=== PATIENT | female | born 1935 | race Caucasian/White ===

== ENCOUNTER 2024-12-18 17:01 | Inpatient (IN) | payer MEDICARE, OTHER, SELFPAY ==
[2024-12-18] VITALS (27 sets, daily range): BP systolic 91–192; BP diastolic 38–132; PULSE 2–68; BMI 23.6
[2024-12-18 14:46] LABS: Hematocrit 29.9 % (37.0-47.0); Hemoglobin 10.0 g/dL (12.0-16.0); Mean Corp Hgb Conc. 33.4 g/dL (33.0-37.0); Mean Corpuscular Volume 96.8 fL (81.0-99.0); Nucleated Red Blood Cells % 0 %; Platelet Count 224 10^3/uL (130-400); Red Cell Dist. Width 14.0 % (11.5-14.5)
[2024-12-18 15:11] LABS: ALT (SGPT) 17 U/L (0-35); AST (SGOT) 32 U/L (14-36); Albumin 4.2 g/dl (3.5-5.0); Alkaline Phosphatase 87 U/L (38-126); Blood Urea Nitrogen 41 mg/dl (7-17); Calcium 9.3 mg/dl (8.4-10.2); Carbon Dioxide 28 mmol/L (22-30); Chloride 97 mmol/L (98-107); Glucose 235 mg/dl (70-99); Potassium 5.2 mmol/L (3.5-5.1); Sodium 132 mmol/L (135-145); Total Protein 7.1 g/dl (6.3-8.2); eGFR 33.31
[2024-12-18 15:17] LABS: Troponin I 1.350 ng/ml
--- NOTE | 2024-12-18 15:54 | ED.GENMED ---
History of Present Illness
General
Chief Complaint: Chest Pain
Time Seen by Provider: 12/18/24 15:31
History of Present Illness
History of Present Illness:
see MDM
Past History
Past History
ED Past Medical History: Arrthythmia (remote hx A-fib s/p ablation), CHF, COPD, HTN, Hypercholesterolemia and Other (DM, osteoporosis)
ED Past Surgical History: Cholecystectomy and Other (PARTIAL HYSTERCTOMY CATARACTS PACEMAKER PLACEMENT 2002 GALLBLADDER REMOVED PACEMAKER GENERATOR CHANGE 01/2011 Right Hip Replacement)
Social History
Tobacco: Former smoker
Alcohol: None
Drug: None
Personal:
Living: with family
Employment: Retired
Family History
Family History: Other (non-contributory)
Phy Exam
Physical Exam
Physical Exam:
see MDM
Scores
Heart Score for Chest Pain Patients
STEMI patient?: No
History: Highly Suspicious
ECG: Significant ST-Depression
Age: >/= 65 years
Risk Factors: 1 or 2 Risk Factors
Troponin: >/= 3 x Normal Limit
Heart Score for Chest Pain Patients: 9
Heart Score Risk: 72.7 % MACE over next 6 weeks
Course
Orders/Labs/Results
Orders:
Orders
12/18/24 14:27
EKG [Electrocardiogram (*1)] Urgent
Reason for Study: Chest Pain
EKG- Treatment ONCE
12/18/24 14:34
Electrocardiogram (*1) Urgent
Reason for Study: Chest Pain
Cardiac Monitoring- Treatment ONCE
EKG- Treatment ONCE
IV Insert/Care/Rem.- Treatment PRN
O2 Therapy [RESP] Urgent
Titrate/Wean O2 to maintain O2 sat greater than (%): 90
Special Instructions: Maintain sats >/=90%
Pulse Ox/spot Check [RESP] Urgent
Quantity: 1
Special Instructions: ON ROOM AIR
12/18/24 14:39
Complete Blood Count/With Diff Urgent
Comprehensive Metabolic Panel Urgent
Troponin I Urgent
12/18/24 15:39
PTT Urgent
Prothrombin Time Urgent
12/18/24 15:40
Troponin I Urgent
12/18/24 15:41
Aspirin Chewable [Low Strength Aspirin] 243 mg PO NOW STA
Heparin 3,500 units IV NOW STA
Pharmacy Request to Place See Dose Instructions PO NOW STA
Discontinue all Active Warfarin orders?: Yes
12/18/24 15:[address] Non Medication Order As Directed
Physician Order: PTT 6 hours after initial start of Heparin infusion
12/18/24 15:45
Heparin [id number] Units/250 ml 25,000 units in 250 ml IV PER PROTOCOL
Weight to be used for heparin protocol in kilograms (kg):: 58.7
Protocol:: Cardiac Tx/Acute Coronary
PTT Goal Range to be used:: PTT 73 to 111 seconds
Order type:: Initial
INITIAL Infusion Dose (UNITS/KG/hr) & then follow protocol:: 12 units/kg/hr
Infusion Dose in UNITS/hr & then follow protocol (UNITS/hr):: 700
INFUSION RATE in mL/hr & then follow protocol (mL/hr):: 7
PTT less than or equal to 64 seconds:: Increase rate by 200 units/hr (+ 2 mL/hr)
PTT 64.1 to 72.9 seconds:: Increase rate by 100 units/hr (+ 1 mL/hr)
PTT 73 to 111 seconds:: Target Range. No change in rate.
PTT 111.1 to 130.9 seconds:: Decrease rate by 100 units/hr (- 1 mL/hr)
PTT 131 to 199.9 seconds:: HOLD for 1 hr. Then decrease rate by 200 units/hr (- 2 mL/hr)
PTT greater than or equal to 200 seconds:: HOLD for 2 hrs & Notify Provider. Then decrease by 200 units/hr (-
2 mL/hr)
Lab follow-up:: Each change, PTT q6h until 2 consecutive are therapeutic. Then PTT
daily.
12/18/24 15:49
CARDIOLOGY CONSULT Routine
Consulting Provider: Paula Dinero
Was physician already notified: Yes
12/18/24 16:[address] See Dose Instructions IV DIRECTED
Abnormal Lab Results
12/18/24
14:39
RBC 3.09 L 10^6/uL
(4.20-5.40)
Hgb 10.0 L g/dL
(12.0-16.0)
Hct 29.9 L %
(37.0-47.0)
MCH 32.4 H pg
(27.0-31.0)
Absolute Lymphs (auto) 0.8 L 10^3/uL
(1.2-3.4)
Neutrophils % 76.0 H %
(42.2-75.2)
Lymphocytes % 10.9 L %
(20.5-51.1)
Sodium 132 L mmol/L
(135-145)
Potassium 5.2 H mmol/L
(3.5-5.1)
Chloride 97 L mmol/L
(98-107)
BUN 41 H mg/dl
(7-17)
Creatinine 1.5 H mg/dL
(0.6-1.0)
Glucose 235 H mg/dl
(70-99)
Troponin I 1.350 H* ng/ml
12/18/24 14:39
12/18/24 14:39
Vital Signs
Initial and Last Documented VS:
Initial Vital Signs
Temp Pulse Resp BP Pulse Ox
98.4 F 60 18 133/56 98
12/18/24 14:29 12/18/24 14:29 12/18/24 14:29 12/18/24 14:29 12/18/24 14:29
Last Documented Vital Signs
Temp Pulse Resp BP Pulse Ox
98.4 F 60 18 133/56 98
12/18/24 14:29 12/18/24 14:29 12/18/24 14:29 12/18/24 14:29 12/18/24 14:29
MDM/Problems Addressed
Differential Diagnosis Includes:
Note:
CHIEF COMPLAINT(S)
Chest pain.
HISTORY OF PRESENT ILLNESS
The patient is an 89-year-old female with a history of paroxysmal atrial fibrillation and a pacemaker, who presented with chest pain. The symptoms started this morning at approximately 7:00 AM, waking her from sleep. She described the pain as
located between her shoulder blades with tightness across the stomach and heaviness on the chest. The pain persisted for about an hour and a half, resolving around 8:30 AM after she took her medications. The patient has experienced no recurrence of
the pain since then. It was communicated that her heart markers were elevated, suggesting stress or injury to the heart muscle, leading to the suspicion of a myocardial infarction (heart attack). The treating physician suspects a potential small
blockage in one of the hearts blood vessels that might have dissolved or remain as a tight narrowing.
ADDITIONAL HISTORY OBTAINED FROM SOURCES OTHER THAN THE PATIENT
The patients spouse confirmed that while assistance from EMS was suggested, they did not summon an ambulance due to distance considerations.
CHRONIC MEDICAL CONDITIONS SIGNIFICANTLY AFFECTING CARE
- Atrial fibrillation, noted to have occurred during a previous hospital admission.
- History of a pacemaker.
PLAN
The patient will be admitted for overnight observation due to the elevated heart markers, suggesting a myocardial infarction. She will be started on heparin (a blood thinner) to prevent further clot formation. The patient will also be given
additional aspirin. Ongoing monitoring for chest pain is crucial, and she is instructed to report any return of symptoms immediately. The cardiology team will be consulted for further management and potential cardiac catheterization. Communication
will also be established with her cardiologists, Dr. Avery and Dr. Rivas, to coordinate care. The importance of her pacemaker function in regulating heart rhythm and minimizing stroke risk related to atrial fibrillation was discussed.
DIFFERENTIAL DIAGNOSIS
The Differential Diagnosis includes, in no particular order and is not limited to:
1. Myocardial infarction
2. Unstable angina
3. Pulmonary embolism
4. Aortic dissection
5. Acute pericarditis
6. Gastroesophageal reflux disease (GERD)
7. Esophageal spasm
8. Costochondritis
9. Panic attack
10. Pneumonia
PHYSICAL EXAM
General: Alert, no acute distress.. Sitting in bed comfortably
Skin: Warm, dry.
Head: Normocephalic, atraumatic
Neck: Appears supple, trachea midline.
Eyes, Ears, Nose, Mouth, and Throat: Oral mucosa moist.
Cardiovascular: No signs of cyanosis. Regular rate and rhythm
Respiratory: Respirations are non-labored.
Abdomen: Non-distended
Musculoskeletal: No deformities. No leg edema
Neurological: No focal neurological deficit observed.
Psychiatric: Cooperative, appropriate mood and affect.
EKG
My independent EKG interpretation is:
- Rhythm: Normal sinus rhythm
- Bouse: Normal axis
- Notable Abnormalities: ST depression laterally
- No evidence of: STEMI
Disposition:
SUMMARY OF ENCOUNTER
The patient, an 89-year-old female with a history of atrial fibrillation and a pacemaker, presented to the emergency department with chest pain occurring early in the morning. Initial blood work indicated elevated cardiac markers suggesting a
potential myocardial infarction (heart attack), likely a qie-HI-rhfuesiwa myocardial infarction (NSTEMI). Management included initiating a heparin drip to prevent further clot formation and administration of aspirin as part of protocol for suspected
acute coronary syndrome. Due to these findings and risks, the patient is being managed as an acute coronary syndrome case.
DISPOSITION
Admit
ASSESSMENT
Suspected yup-JE-pilefefob myocardial infarction (NSTEMI) due to elevated troponin levels and clinical presentation.
EMERGENCY TREATMENTS ADMINISTERED
Aspirin and heparin drip were administered in the emergency department.
MANAGEMENT OF THE PATIENTS CARE WAS DISCUSSED WITH
The cardiology team was consulted for further management, and the patient will be admitted under the hospitalist service with ongoing heparin infusion.
PLAN
Admit the patient for inpatient monitoring and management. Begin heparin infusion to prevent further clot formation and continue aspirin therapy. Monitor cardiac markers and symptoms closely. The patient is instructed to report any return of chest
pain immediately. Further discussions with cardiologists for potential interventions will be conducted.
INDEPENDENT REVIEW OF LABS AND INTERPRETATION OF TESTS
My independent review of cardiac markers indicates elevated troponin levels, suggestive of myocardial stress or injury.
MEDICATION RECONCILIATION
Administered medications include aspirin and a heparin drip.
MEDICAL DECISION MAKING
-Complexity of Data Reviewed: Chronic conditions affecting care: Atrial fibrillation, history of pacemaker. Differential Diagnosis: Myocardial infarction, unstable angina, pulmonary embolism, aortic dissection, acute pericarditis, gastroesophageal
reflux disease, esophageal spasm, costochondritis, panic attack, pneumonia.
-Data:
Category 1: My independent EKG interpretation indicated normal sinus rhythm and ST depression laterally, with no evidence of STEMI.
Category 3: Management discussion took place with the cardiology team regarding the treatment plan and admission under the hospitalist service.
-Risk: Prescription medication was prescribed and administered, including aspirin and heparin infusion. Escalation of care with inpatient admission was made due to potential for myocardial infarction.
DIAGNOSIS
Non-ST elevation myocardial infarction (NSTEMI) (ICD-10: I21.4)
*Pulse Oximetry
SaO2: 98
Oxygen Mode of Delivery: Room air
Patient hypoxic: no
*Critical Care Note
Total Time (30-74mins, 75-104mins- exclusive of procedures): 33 min
comment:
The high probability of a clinically significant, sudden or life threatening deterioration of the cardiovascular system(s) required my full and direct attention, intervention and personal management. The aggregate critical care time was 33 minutes.
This time is in addition to time spent performing reported procedures but includes the following:
[x] Data Review and interpretation
[x] Patient assessment and monitoring of vital signs
[x] Documentation
[x] Medication orders and management
ED Attending Note
-
Portions of this chart may have been created with voice recognition software.� Occasional wrong word or��sound alike� substitutions may have occurred due to the inherent limitations of voice recognition software.
Discharge Plan
Departure
Patient Disposition: Admit
Date of Disposition: 12/18/24
Time of Disposition: 15:58
Admit to: IVU
Presentation/result/management discussed w/ accepting MD/DO: Hospitalist
Discharge Problem:
Acute non-ST elevation myocardial infarction (NSTEMI)
Prescriptions:
No Action
glimepiride 2 MG tablet
4 mg PO TID
spironolactone 50 MG tablet
25 mg PO BID
omeprazole magnesium [Prilosec OTC] 20 MG tablet,delayed release (DR/EC)
20 mg PO DAILY
diltiazem HCl [Cartia XT] 240 MG capsule,extended release 24hr
240 mg PO BID
atorvastatin 40 MG tablet
40 mg PO MOWEFR
tolterodine 2 MG tablet
2 mg PO BID
triamcinolone acetonide [Nasacort] 10.8 ML aerosol,spray
1 spray NS PRN PRN (Reason: allergies)
aspirin [Rayo Chewable Aspirin] 81 MG tablet,chewable
81 mg PO DAILY
light mineral oil-mineral oil [Soothe XP] 15 ML drops
1 drp OP DAILY
fluticasone propion-salmeterol [Advair HFA] 1 PUFF HFA aerosol inhaler
1 puff inhalation PRN PRN (Reason: sob)
dulaglutide [Trulicity] 0.75 MG/0.5 ML pen injector
0.75 mg SQ WEEKLY
latanoprost (PF) 7.5 ML drops
1 drp OP HS
Referrals:
Chelsi Schroeder MD [Family Provider]
Interventions
Interventions:
*Risk Screen - Suicide Last Done: 12/18/24 14:29
Discharge Date and Time
Print Language: POLISH
--- NOTE | 2024-12-18 16:03 | CON.CAR ---
Consultation
Consultation Request
Date/Time Consultation Requested: 12/18/2024 4 PM
Date/Time Consultation Performed: 12/18/2024 4:30 PM
Requesting Provider: Dr. Ponce Virk
Performing Provider: Dr. Paula Dinero
Reason for Consultation: Chest pain elevated troponin
Medical History
-
Chief Complaint: Chest pain
History of Present Illness:
She is here for assessment of chest discomfort. She is a patient of [facility] cardiology. She is accompanied by her daughter. She has known paroxysmal atrial fibrillation and pacemaker with last generator change at our institution in 2020. She and her
daughter tell me that she was admitted to [place] from Thursday to Thursday of this past week. They think it was for atrial fibrillation. She is not on oral anticoagulation. They think there was 'water in her lungs '. They do not remember what
testing was done. Records are not available. She had been feeling poorly.
Early this morning around 7 AM she had symptoms of chest discomfort with radiation across her stomach and shoulder blades waking her up from sleep. The pain persisted about 1-1/2 hours. She has not had recurrence. She tells me that she feels that
she has had a decline in activity level over the past few weeks. She has some dyspnea on exertion with usual activity.
First troponin is elevated at 1.35. EKGs with ventricular pacing and ST depression in the anterolateral and inferior leads a bit more pronounced than prior. No chest x-ray is currently available for review.
Aspirin and heparin were started in the emergency department. Patient was felt to have acute coronary syndrome. Non-ST elevation AK likely
She has multiple cardiovascular risk factors including peripheral vascular disease, diabetes and hyperlipidemia.
She has history of paroxysmal atrial fibrillation for which she remains on. She underwent pulmonary vein isolation in 2011 (Dr. Cassidy)
She has a [employer] pacemaker in place with last change of generator 2020
She has history of peripheral vascular disease that is being followed and possible carotid disease. She tells me although she has artery disease of the legs they are just going to watch it.
She has hyperlipidemia on treatment.
She is diabetic.
She has chronic kidney disease with today's creatinine 1.5 previously noted at 1.3. She has history of anemia.
Past Medical History
Past Medical History: Arrhythmias (Atrial fibrillation with pulmonary vein isolation in 2011. [employer] permanent pacemaker generator change 2020.), COPD, HTN, NIDDM, Renal Failure (Chronic kidney disease) and Other (Peripheral vascular disease
possible carotid disease)
Past Surgical History: Cardiac (Pacemaker last generator change 2020 [employer]), Cholecystectomy, Gynecological, Orthopedic (Right hip replacement) and Other (Cataract surgery)
Social History
Tobacco: Former Smoker
Personal:
Living: With Family
Family History
Family History: CAD (Father)
Allergies / Home Medications
Allergy/AdvReac Type Severity Reaction Status Date / Time
dexamethasone (From Maxitrol) Allergy Unknown Verified 02/13/21 09:11
neomycin (From Maxitrol) Allergy Unknown Verified 02/13/21 09:11
polymyxin B (From Maxitrol) Allergy Unknown Verified 02/13/21 09:11
sulfamethoxazole (From Allergy Unknown Verified 02/13/21 09:11
Bactrim)
trimethoprim (From Bactrim) Allergy Unknown Verified 02/13/21 09:11
�Medication �Instructions �Recorded �Confirmed �Type
glimepiride 2 mg tablet 4 mg PO TID 02/18/12 02/13/21 History
omeprazole magnesium 20 mg 20 mg PO DAILY 02/18/12 02/13/21 History
tablet,delayed release (Prilosec
OTC)
spironolactone 50 mg tablet 25 mg PO BID 02/18/12 02/13/21 History
diltiazem HCl 240 mg 240 mg PO BID 02/19/12 02/13/21 History
capsule,extended release 24 hr
(Cartia XT)
aspirin 81 mg chewable tablet 81 mg PO DAILY 02/13/21 02/13/21 History
(Rayo Chewable Low Dose Aspirin)
atorvastatin 40 mg tablet 40 mg PO MOWEFR 02/13/21 02/13/21 History
dulaglutide 0.75 mg/0.5 mL 0.75 mg SQ WEEKLY 02/13/21 02/13/21 History
subcutaneous pen injector
(Trulicity)
fluticasone propionate 115 1 puff inhalation PRN PRN sob 02/13/21 02/13/21 History
mcg-salmeterol 21 mcg/actuation
HFA inhaler (Advair HFA)
latanoprost (PF) 0.005 % eye drops 1 drp OP HS 02/13/21 02/13/21 History
light mineral oil 1 %-mineral oil 1 drp OP DAILY 02/13/21 02/13/21 History
4.5 % eye drops (Soothe XP)
tolterodine 2 mg tablet 2 mg PO BID 02/13/21 02/13/21 History
triamcinolone acetonide 55 mcg 1 spray NS PRN PRN allergies 02/13/21 02/13/21 History
nasal spray aerosol (Nasacort)
Review of Systems
-
History Source: Patient
All other systems: Negative unless noted
Cardiac: Chest Pain
Physical Exam
Vital Signs
Temp Pulse Resp BP Pulse Ox
98.4 F 60 18 133/56 98
12/18/24 14:29 12/18/24 14:29 12/18/24 14:29 12/18/24 14:29 12/18/24 15:55
Lab Results
12/18/24 14:39
12/18/24 14:39
Troponin I 1.350 ng/ml H* 12/18/24 14:39
General: Well developed, well nourished in NAD.
Neck: Carotid bruit right greater than left
Heart: RRR, no murmurs, 2/6 basal systolic murmur
Lungs: Crackles at the bases
Extremities: No clubbing, cyanosis trace to +1 edema bilaterally.
Neuro: Grossly nonfocal, awake, alert and oriented x3.
Impression / Plan
-
[employer]: Dr. Avery
Impression:
Chest discomfort Non-Q wave myocardial infarction first troponin 1.35
Atrial fibrillation paroxysmal
Status post PVI 2011 (Dr. Cassidy)
Heart failure unknown ejection fraction
Permanent pacemaker [employer] last generator change 2020 (Dr. Hodges)
Hyperlipidemia
Diabetes mellitus
Peripheral vascular
Renal insufficiency
Plan:
She was admitted to [place] from Thursday to Thursday of this past week. She thinks it was for atrial fibrillation (she was not started on oral anticoagulation). She is on amiodarone. She believes that she had fluid in her lungs also. We do not
have records for review.
Given chest pain and significant cardiovascular risk factors including peripheral vascular disease in the setting of abnormal troponin likely non-Q wave myocardial infarction, unclear timing given her troponins are already decreasing. Patient
currently is chest pain-free. Plan at this time is to have patient admitted to the interventional care unit.
Non-Q wave myocardial infarction, unclear timing
Obtain records from [facility] she was discharged 2 days ago and they are unsure what happened at that time.
Start heparin
Start aspirin
Trend troponins with serial EKGs
Continue statin
Check lipids
Follow telemetry
Likely cardiac catheterization Thursday unless recurrent chest pain
Hold Trulicity
History of paroxysmal atrial fibrillation
She is currently on amiodarone, unclear how long and whether this was started at [place] last week. She tells me she had A-fib but is not on anticoagulation. Currently sinus rhythm. Watch telemetry.
Obtain records.
PVI 2011
Follow telemetry
Heart failure with unknown ejection fraction
She tells me she had fluid in her lungs at [place]
Exam holding a bit of fluid, mild
proBNP added on
Renal insufficiency noted
Consider IV diuretic in a.m. Oxygenation is stable.
[employer] permanent pacemaker generator change 2020
Interrogate/follow.
Hyperlipidemia
Continue statin await lipids
Diabetes mellitus
Managed by primary service
Peripheral vascular disease details unknown
I reviewed all available records. Will obtain other records. Reviewed discharge med list from [place]. Had a long discussion with patient's daughter. Patient's daughter asked that we call Twila the patient's granddaughter who lives with her
to discuss treatment plans and any further questions.
Data Reviewed
-
EKG: Tracing Personally Visualized and interpreted
Medical Tests (Nuc Med, Echo etc): Report Reviewed by me
Labs: Labs Reviewed by me
Old Records: Requested and Reviewed
[2024-12-18] MEDS: LOW STRENGTH ASPIRIN 243 MG PO (16:19)
[2024-12-18 16:23] LABS: INR 1.20; PT 15.5 Sec (11.4-14.6)
[2024-12-18 16:24] LABS: APTT 27.7 Sec (23.4-35.0)
[2024-12-18] MEDS: HEPARIN 3500 UNITS IV (16:28)
[2024-12-18] MEDS: HEPARIN 25000 UNITS/250 ML IV (16:35)
[2024-12-18 16:43] LABS: Troponin I 1.250 ng/ml
--- NOTE | 2024-12-18 16:49 | HPS.HSE ---
Addendum entered and electronically signed by Damaso Rankin MD 12/21/24 09:04:
CORRECTION: typo error
Paroxysmal A-fib status post ablation status post Pacemaker- Not Watchman.
Patient does not have Watchman device.
Original Note:
Family Physician
-
Family Physician: Chelsi Schroeder
Chief Complaint
-
Chest pain
History of Present Illness
Patient is a pleasant 89 years old with a history of atrial fibrillation status post ablation, pacemaker, hypertension, COPD, congestive heart failure, hyperlipidemia, diabetes mellitus, who came to the ER with chest pain which started at 7 AM today
morning, started between shoulder plates then had epigastric pain and then central chest pain associated with nausea but no vomiting.
Patient also was having headaches which are currently improved.
Denies any fever or chills, no coughing, no diarrhea but has constipation.
In the ER noted to have significant elevated troponin with EKG showing ST depression lateral leads, patient started on heparin drip and will be admitted to the IVU.
Medical History
Past Medical History
Past Medical History: Reports Other
Additional Past Medical History:
Arrthythmia (remote hx A-fib s/p ablation), CHF, COPD, HTN, Hypercholesterolemia and Other (DM, osteoporosis)
Past Surgical History: Reports Other
Additional Past Surgical History:
Cholecystectomy and Other (PARTIAL HYSTERCTOMY CATARACTS PACEMAKER PLACEMENT 2002 GALLBLADDER REMOVED PACEMAKER GENERATOR CHANGE 01/2011 Right Hip Replacement)
Social History
Tobacco: Former Smoker
Alcohol: None
Drug: None
Personal:
Living: With Family
Employment: Retired
Family History
Family History: Not pertinent
Allergies / Home Medications
Allergies reflects when Allergies were last updated in [facility].
Home Medications with original date entered in [facility]
Allergy/Medication List:
Allergies
Allergy/AdvReac Type Severity Reaction Status Date / Time
dexamethasone (From Maxitrol) Allergy Unknown Verified 02/13/21 09:11
neomycin (From Maxitrol) Allergy Unknown Verified 02/13/21 09:11
polymyxin B (From Maxitrol) Allergy Unknown Verified 02/13/21 09:11
sulfamethoxazole (From Allergy Unknown Verified 02/13/21 09:11
Bactrim)
trimethoprim (From Bactrim) Allergy Unknown Verified 02/13/21 09:11
Home Medications
glimepiride 2 mg tablet 4 mg PO TID 02/18/12
omeprazole magnesium 20 mg tablet,delayed release (Prilosec OTC) 20 mg PO DAILY 02/18/12
spironolactone 50 mg tablet 25 mg PO BID 02/18/12
diltiazem HCl 240 mg capsule,extended release 24 hr (Cartia XT) 240 mg PO BID 02/19/12
aspirin 81 mg chewable tablet (Official Limited Virtual Chewable Low Dose Aspirin) 81 mg PO DAILY 02/13/21
atorvastatin 40 mg tablet 40 mg PO MOWEFR 02/13/21
dulaglutide 0.75 mg/0.5 mL subcutaneous pen injector (Trulicity) 0.75 mg SQ WEEKLY 02/13/21
fluticasone propionate 115 mcg-salmeterol 21 mcg/actuation HFA inhaler (Advair HFA) 1 puff inhalation PRN PRN sob 02/13/21
latanoprost (PF) 0.005 % eye drops 1 drp OP HS 02/13/21
light mineral oil 1 %-mineral oil 4.5 % eye drops (Soothe XP) 1 drp OP DAILY 02/13/21
tolterodine 2 mg tablet 2 mg PO BID 02/13/21
triamcinolone acetonide 55 mcg nasal spray aerosol (Nasacort) 1 spray NS PRN PRN allergies 02/13/21
Review of Systems
-
A 12 point ROS was completed and negative except as noted: Yes
Constitutional: Denies Fever, Weight Gain, Weight Loss, Fatigue or Sleep Disturbance
EENT: Denies Tearing, Sore Throat, Mouth Pain, Mouth Swelling or Runny Nose
Respiratory: Denies Cough, Hemoptysis or Trouble Breathing
Cardiac: Reports Chest Pain; Denies Diaphoresis, Palpitations or Syncope
Abdomen/GI: Reports Nausea and Constipated; Denies Abdominal Pain, Vomiting, Diarrhea, Bloody Stools or Black Stools
: Denies Dysuria, Frequency, Flank Pain, Incontinence, Difficulty Voiding, Urgency, Bleeding or Dark Urine
Musculoskeletal: Denies Joint Pain, Joint Swelling, Muscle Pain, Muscle Stiffness or Edema
Skin: Denies Itching or Rash
Neurological: Reports Headache; Denies Dizzy, Weakness or Numbness
Endocrine: Denies Polyuria, Polydipsia or Temp Intolerance
Hematologic/Lymphatic: Denies Bleeding, Swollen Glands or Bruising
Psych: Reports Calm; Denies Depression, Anxiety or Panic Disorder
Physical Exam
Vital Signs
Vital Signs
Temp Pulse Resp BP Pulse Ox
98.4 F 60 18 133/56 98
12/18/24 14:29 12/18/24 14:29 12/18/24 14:29 12/18/24 14:29 12/18/24 15:55
Physical Exam
General: Well Developed, Well Nourished, No Apparent Distress, Comfortable and Good Appetite; No Pain, Chills or Sweats
HEENT: NormoCephalic, Moist mucous membranes, Atraumatic, Good Dentition, PERRLA, Nose Appears Normal and Ears Appear Normal
Respiratory: Clear
Cardiac: S1/S2 and Regular Rhythm
Breast: Deferred by me
GI: Soft, Non Tender, Non Distended and Normal Bowel Sounds
Genito-urinary: Deferred by me
Musculoskeletal: No Clubbing, No Cyanosis and No Edema
Skin: Warm; No Rash, Jaundice, Ulcers, Lesions or Decubitus Ulcers
Neuro: Awake, Alert, Oriented, AO x 3, No Motor Deficits, Nonfocal/grossly intact and Cranial Nerves Intact
Hematologic/Lymphatic: No Lymphadenopathy
Psych: Calm
Laboratory Results
-
12/18/24 14:39
12/18/24 14:39
Laboratory Results
PT 15.5 Sec (11.4-14.6) H 12/18/24 15:40
INR 1.20 12/18/24 15:40
APTT 27.7 Sec (23.4-35.0) 12/18/24 15:40
Total Bilirubin 0.9 mg/dl (0.2-1.3) 12/18/24 14:39
AST 32 U/L (14-36) 12/18/24 14:39
ALT 17 U/L (0-35) 12/18/24 14:39
Alkaline Phosphatase 87 U/L (38-126) 12/18/24 14:39
Troponin I 1.250 ng/ml H* 12/18/24 15:40
Data Reviewed
-
Diagnostic Radiology: Report Reviewed by me
CT Scan: Report Reviewed by me
Medical Tests (Nuc Med, Echo, EKG etc): Report Reviewed by me
Lab Data: Labs Reviewed by me
Old Records: Reviewed
Impression/Plan
-
Impression:
Patient is a pleasant 89 years old with a history of atrial fibrillation status post ablation, pacemaker, hypertension, COPD, congestive heart failure, hyperlipidemia, diabetes mellitus, who came to the ER with chest pain.
In the ER noted to have significant elevated troponin with EKG showing ST depression lateral leads, patient started on heparin drip and will be admitted to the IVU, cardiology consulted in the ER.
Assessment/plan:
NSTEMI
Patient presented to the ER with chest pain. Currently chest pain-free
Troponin came back at 1.350 ----> 1.250
EKG done in the ER shows ST depression lateral leads
Aspirin/statin/Plavix
Trend troponin
Cardiology consulted.
Check echocardiogram.
Keep n.p.o. after midnight for potential cardiac cath.
Chronic congestive heart failure (unknown type, no echo available)
History of congestive heart failure, no sign of acute exacerbation.
Holding home diuretic for now as patient may undergo cardiac cath
Cardiology consulted.
Will check echo.
Paroxysmal A-fib status post ablation status post Watchman
Currently in sinus rhythm.
Rate controlled.
Continue metoprolol.
Patient not on anticoagulation at home
Normocytic anemia
Unclear baseline.
Continue to monitor hemoglobin while on heparin
Right lower extremity calf tenderness
History of DVT.
Ultrasound lower extremity pending
Hyperkalemia
Recently spironolactone discontinued.
Continue to monitor
Acute renal failure versus CKD
Creatinine 1.3.
Unknown baseline but possible CKD
Creatinine from 2011 1.3
Mild hyponatremia
Continue to monitor
History of diabetes mellitus
Continue home medication
Insulin sliding scale
Diabetic diet
Hemoglobin A1c pending
History of hypertension
Continue home meds (metoprolol)
History of hyperlipidemia
Continue statin
History of COPD
Patient was former smoker.
Continue home inhalers
No sign of acute exacerbation
CODE STATUS: Full code
DVT prophylaxis: Heparin drip
Diet: Diabetic/cardiac, n.p.o. after midnight
Family communication: Discussed with family at bedside
Disposition: Continue heparin drip, n.p.o. after midnight for possible cardiac cath.
Total time spent on today�s encounter was 75 minutes which included time spent in counseling the patient/family regarding diagnosis and treatment plan as listed above, goals of care, and symptom management. Case was discussed with nursing staff,
specialists, and care coordinators/case management. All labs and imaging personally reviewed by me. Remainder the time spent in detailed review of previous records, lab data, imaging, and other medical provider documentation.
--- NOTE | 2024-12-18 17:02 | CM ---
CM reviewed chart and met with pt and family bedside in ED. Pt lives in 1 story in [address] suite attached to her granddaughter's home. 2 EDMUND.
Independent in ADLs and personal care, uses cane for ambulation, also has walker.
Confirms prescription coverage.
hx [facility] in past, no hx SNF
PCP: Chelsi Schroeder
Pharmacy: [facility] in [place]
CM will continue to follow for any discharge planning needs.
--- NOTE | 2024-12-18 19:55 | PTCARENOTE ---
Patient received at approximately 1935 from ED. Ambulated from stretcher to bathroom x1 RW. Heparin gtt infusing as ordered. Patient voided appropriately in the bathroom. Admission completed. See Worklist. AOx3. Apical regular. Radial and pedal
pulses palpable. RLE edema > LLE edema (+1 and trace respectively). Patient coughing up clear mucous. Lungs with scattered fine crackles. Pain free at times of admission. Patient oriented to room and unit. Call carreno within reach. Care ongoing.
[2024-12-18] MEDS: TYLENOL 650 MG PO (20:23)
--- NOTE | 2024-12-18 20:43 | W.PN.UPDATE ---
Update Note
Progress Note Update
-Patient seen for 8 out of 10 chest pain, RN placed patient on 2L NC
-On evaluation, patient very dyspneic, O2 sat 91% on 2L NC, OX3, HR reg, lungs diminished t/o, +BS x 4.
-Ordered stat portable CXR. Lasix 20 mg IV x 1 now. Repeat dose of 20 mg IV requested by Cardiology for total dose of Lasix 40 mg IV.
-EGK, preliminary ready NSR ST &T wave abnormality, consider inferolateral ischemia.
-Started on Nitro gtt, for chest pain, titrated as needed.
-TT to harvest contractor [employer], Dr. Paula Dinero, updated on events, sent EKG for review
-Patient's O2 sats continued to drop 87% on 6L w/non rebreather, patient w/decreased mentation, rapid response called. Appreciate assistance from CV Natan ALBRECHT.
-Patient started on BiPap, ordered Duoneb, SL nitro x 1 stat dose and transferred to ICU/Assurance Assistant consulted.
-Called and spoke to patient's granddaughter, Jackelin, to update on events and transfer of patient to higher level of care.
[2024-12-18] MEDS: NITROGLYCERIN PREMIX 250 IV (20:59)
[2024-12-18] MEDS: LASIX 20 MG IV ×2 (21:16→21:31)
[2024-12-18] MEDS: DETROL PO (21:28)
[2024-12-18] MEDS: NITROSTAT (SUBLINGUAL) 0.4 MG SL (21:40)
[2024-12-18 21:41] LABS: Glucose - Point of Care 328 mg/dl (70-99)
[2024-12-18] MEDS: DUONEB INH (21:43)
--- NOTE | 2024-12-18 21:47 | RESPNOTE ---
rapid response was called, pt placed on bipap 02/12 as order.
abg and 1 time duoneb tx was given as order.
[2024-12-18] MEDS: DUONEB 3 ML INH (22:16)
--- NOTE | 2024-12-18 22:30 | PTCARENOTE ---
At approximately 2004 the patient reported epigastric pain, said it was mild and rated it as a 2 out 10. She also reported that it radiated to between her shoulder blades. An ECG was completed. Eddie Choi was notified. The patient was
initially on room air with SaO2 97-99%. Following reports of chest pain her SaO2 decreased to 88-90%. 2L NC was applied and uptitrated to 6L with SaO2 ranging from 90-92%. The epigastric pain continued to increase up to a 8 out of 10 and radiating
from epigastric region to her sternum, a second ECG was completed. The patient became restless and was attempting to exit the bed. A nitroglycerin gtt was ordered and hung, see MAR and worklist. 20mg Lasix was ordered and given at 2115 and 2130, see
JUL. The patient became more tachypneic with labored breathing and eventually became more lethargic. Eddie Choi called CT surgery DAVE to also assess the patient. Per TRENA Elkins, nitro uptitrated due to continued chest pain and hypertension.
One does of SL Nitro given, see MAR. Portable CXR completed.
A rapid response was called per CT-surgery DAVE Elkins at 2137. The patient was placed on Bipap by RT. ICU nurses to bedside. It was decided that the patient would be upgraded to a higher level of care. Bedside report was given to receiving RN,
Marcos, and the patient was transported to the ICU. Eddie Choi to speak with family regarding change in level of care.
[2024-12-18 22:34] LABS: B.E. -4.0 mmol/L; HCO3 22.6 mmol/L (21-28); O2 Saturation % 98.7 % (94-98); PCO2 47 mmHg (32-35); PO2 96 mmHg (83-108)
[2024-12-18 22:35] LABS: Hematocrit 29.4 % (37.0-47.0); Hemoglobin 9.6 g/dL (12.0-16.0); Mean Corp Hgb Conc. 32.7 g/dL (33.0-37.0); Mean Corpuscular Volume 96.1 fL (81.0-99.0); Platelet Count 217 10^3/uL (130-400); Red Cell Dist. Width 14.0 % (11.5-14.5)
[2024-12-18 23:00] LABS: Troponin I 1.510 ng/ml
[2024-12-18 23:04] LABS: APTT 159.3 Sec (23.4-35.0); Blood Urea Nitrogen 35 mg/dl (7-17); Calcium 8.9 mg/dl (8.4-10.2); Carbon Dioxide 20 mmol/L (22-30); Chloride 101 mmol/L (98-107); Estimated Creatinine Clearance 20 ml/min; Glucose 300 mg/dl (70-99); Potassium 4.6 mmol/L (3.5-5.1); Sodium 131 mmol/L (135-145); eGFR 33.31
[2024-12-18] MEDS: XALATAN OPHTHALMIC SOLUTION 1 DROP BOTH EYES (23:42)
[2024-12-18] MEDS: NOVOLOG FLEXPEN 5 UNITS SC (23:43)
[2024-12-18 23:45] LABS: APTT 111.6 Sec (23.4-35.0)
[2024-12-19] VITALS (39 sets, daily range): BP systolic 83–135; BP diastolic 33–86; PULSE 2–66; BMI 23.5
--- NOTE | 2024-12-19 00:33 | PTCARENOTE ---
transferred pt from IVU to the unit after responding to rapid, pt Ox3 drowsy and lethargic, able to make needs known, PERRLA 3, denies chest pain, A paced on the monitor, weak radials, Doppler pedals, trace GA, lungs coarse, fine crackles and
expiratory wheeze throughout, pt received neb treatment, BIPAP 12/8 10L SpO2 100%, Bsx4 hyperactive round soft non tender, PW pt due to void, Bladder scanned for 35ml, pt has not voided after receiving lasix, pt states she ambulated to the bathroom
and urinated before rapid was called, dry skin sloughing on sacrum, 18G RAC, 20G LAC, 24G L wrist, Hep gtt per worklist, Nitro weaned off @ 2300 due to pt becoming hypotensive pt still denies chest pain, labs sent, CHG bath, BG 300, 5 units given
per order, call carreno within reach, otherwise refer to documentation.
[2024-12-19 01:02] LABS: Glucose - Point of Care 214 mg/dl (70-99)
[2024-12-19 01:56] LABS: Glucose - Point of Care 149 mg/dl (70-99)
--- NOTE | 2024-12-19 03:34 | PTCARENOTE ---
systems reviewed, BG 214 after 5 units, EGG PROCESSOR notified [facility]CGP ordered, awaiting approval from pharmacy, new BG after 45min 149, EGG PROCESSOR notified and CCGP cancelled, O2 weaned down, Hep gtt per worklist, otherwise refer to documentation
[2024-12-19 05:26] LABS: APTT 72.0 Sec (23.4-35.0)
[2024-12-19 05:43] LABS: HDL Cholesterol 49 mg/dl; LDL Cholesterol, Calculated 61 mg/dl; Magnesium 2.4 mg/dl (1.6-2.3); Very Low Density Lipoprotein 11 mg/dl (0-30)
[2024-12-19 05:43] LABS: B.E. -0.1 mmol/L; HCO3 23.8 mmol/L (21-28); O2 Saturation % 97.4 % (94-98); PCO2 35 mmHg (32-35); PO2 72 mmHg (83-108)
[2024-12-19 05:46] LABS: O2 Therapy BIPAP
[2024-12-19 05:58] LABS: Hematocrit 26.6 % (37.0-47.0); Hemoglobin 8.9 g/dL (12.0-16.0); Mean Corp Hgb Conc. 33.5 g/dL (33.0-37.0); Mean Corpuscular Volume 96.0 fL (81.0-99.0); Nucleated Red Blood Cells % 0 %; Platelet Count 197 10^3/uL (130-400); Red Cell Dist. Width 13.6 % (11.5-14.5)
[2024-12-19 05:59] LABS: Blood Urea Nitrogen 41 mg/dl (7-17); Calcium 9.5 mg/dl (8.4-10.2); Carbon Dioxide 26 mmol/L (22-30); Chloride 100 mmol/L (98-107); Estimated Creatinine Clearance 18 ml/min; Glucose 120 mg/dl (70-99); Potassium 4.8 mmol/L (3.5-5.1); Sodium 132 mmol/L (135-145); eGFR 30.83
[2024-12-19 06:00] LABS: Troponin I 1.280 ng/ml
[2024-12-19] MEDS: NOVOLOG FLEXPEN-MODERATE RESISTANCE SC ×4 (06:02→23:51)
--- NOTE | 2024-12-19 07:12 | W.PN.HOSP.TC ---
Addendum entered and electronically signed by Best Morris MD 12/19/24 21:33:
Attending Addendum-
I saw and evaluated the patient. I reviewed the resident�s note and agree with findings and plan as documented in the resident�s note. Sub: transferred to ICU overnight due to respiratory distress. Was placed on bipap and given stat lasix and
started on nitro gtt due to CP and SOB. Currently patient has been weaned off nitro gtt and bipap to supplemental o2. Patient denies CP but has minimal SOB which is greatly improved from previous. Denies fevers chills. Does have a productive cough.
Full 12 point ROS reviewed and negative except as documented Exam: Vitals reviewed in chart GEN-NAD heart RRR no MRG lungs crackles bases abd soft LE trace LE edema b/l
Plan:
#NSTEMI - ACS
-Currently chest pain-free
-Troponin trending down 1.5 -> 1.2
-EKG personally reviewed shows ST depression lateral leads
-cont Aspirin/metoprolol/Plavix/atorvastatin
-cont hep gtt
-dc nitro gtt
-Cardiology input appreciated
-echo 12/19-. Top normal left ventricular size, global hypokinesis with mid and apical septal akinesis, EF 30-35%
2. Mitral annular calcification, thickened leaflets, mild to moderate mitral regurgitation and dilated left atrium.
-d/w cards previous EF @ 54%
-n.p.o. after midnight for cardiac cath in am
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
-cont IV lasix
-strict I and O daily weights fluid restrict
-Cardiology input appreciated
-echo as above 30-35% reduced from previous
#Acute Hypoxemic Respiratory Failure
- weaned off bipap
- wean o2 for sats > 90%
#Paroxysmal A-fib status post ablation/PPM, status post Watchman
-Currently in sinus rhythm.
-Rate controlled
-Continue metoprolol and amiodarone
-Patient not on anticoagulation at home
#Normocytic anemia
-monitor CBC on hep gtt
-trending down
#Right lower extremity calf tenderness
-neg for DVT
# Hyponatremia
- likely hypervolemic
- trend cont IV lasix
#Hyperkalemia
- resolved
#CKD 3b
-trending up due to lasix
-@ baseline
-avoid NT agents monitor closely post cath
#DM
Continue home medication
Insulin sliding scale
Hemoglobin A1c-8.1
c/s DM management start SGLT1i when able
on trulicity as OP-held
# HTN
Continue metoprolol
# HLD
Continue atorvastatin
# COPD
Patient was former smoker.
Continue home inhalers
No sign of acute exacerbation
CODE STATUS: Full code->DNR
DVT prophylaxis: Heparin drip
Diet: Diabetic/cardiac, n.p.o. after midnight
ACP
Patient consented to discuss, was alone, time spent explanation of advance directives, changes in health status, patient�s health care wishes if the patient becomes unable to make health decisions, goals of care, code status, and prognosis 'my GD
wont like it but its my wish to be DNR' - 16 minutes
CC Note
Due to a high probability of clinically significant, life-threatening deterioration, the patient required a high level of preparedness to intervene emergently. I personally spent this critical care time directly and personally managing the patient.
This critical care time included obtaining a history; examining the patient; ordering and review of studies and STAT labs; arranging urgent treatment with development of a management plan; evaluation of patient's response to treatment; reassessment;
and, discussions with other providers.
This critical care time was performed to assess and manage the high probability of imminent, life-threatening deterioration that could result in multi-organ failure. It was exclusive of separately billable procedures and treating other patients and
teaching time. Total time documented is also exclusive of any additional time listed that was spent in advance care planning discussion
Total critical care time: Approximately 33 minutes
Original Note:
Today's Communication/Plan
-
- possible cardiac cath thursday
- continue NSTEMI care: aspirin, clopidogrel, metoprolol succinate, heparin
- monitor fluid balance, continue lasix
- f/u cardiology recs
Assessment / Plan
Assessment / Plan
In summary this is an 89 yo F who presented with chest pain, and workup revealed NSTEMI
# NSTEMI
- Troponin 1.350 --> 1.250
- EKG in ER: ST depression lateral leads
- Cardiology consulted, potential cath today; has been npo
- she's on aspirin, clopidogrel, metoprolol
# acute hypoxic respiratory failure
- overnight, desat to 87%
- trial BIPAP but now on supplemental oxygen
- feeling wellt his morning, after lasix
- likely attributed to flash pulmonary edema in setting of ACS and systolic dysfunction, which is c/w echo results (see HFpEF / HFrEF problem below)
# HFpEF --> HFrEF
# Acute on chronic exacerbation of HF
- proBNP is also elevated now
- likely triggered by NSTEMI/ACS
- she had acute on chronic exacerbation last week 12/11-12/16) at [facility]
- collateral from her tester sound office, EF was 54% in 03/2024, ie preserved EF
- echo today was LVEF 30-35%, ie reduced EF
- GDMT should include (1) ACEi/ARB/ARNi-ARB; (2) beta-adalberto; (3) MRA; and (4) sglt2i
- however, her discharge medication paperwork from last week reportedly stated d/c spironolactone
- f/u cardiology recommendations
# Right lower extremity calf tenderness
- hx of DVT
- ultrasound did not show DVT
# Paroxysmal atrial fibrillation s/p ablation with watchman
- Continue metoprolol, amioadarone
- does not seem to be on DOAC, DAPT on the medicines post discharge from [facility]
- [employer] pacemaker placed in 2002, changed in 2020, and is NOT MRI compatible
# Anemia
- Hgb 8.9 from 10.0 yesterday
- LDH came in elevated, unclear if points toward possible hemolysis or acute phase reactant from stress of ACS
- on heparin
- Plt from 224 to 197
# CKD stage 3b
- Creatinine baseline is ~1.5 per collateral.
- eGFR is calculated 39
- monitor BMP
# Hyponatremia
- Na+ 132
- also received lasix
- monitor BMP
# Diabetes mellitus - type 2
- sliding scale insulin - moderate resistance
- at home, takes dulaglutide
- Hemoglobin A1c pending
- hold trulicity
# HTN - continue metoprolol
# HLD - continue atorvastatin
# COPD - continue mometasone-formeoterol, fluticasone
DVT ppx: Heparin drip
Disposition: pending medical improvement
Code status: DNR
Anticipated Discharge: > 48 hours
Subjective/Interval History
-
Date of Service: December 19, 2024
she feels well this morning.
overnight, desat to 87% received nitro, nitro drip, lasix, now off nitro drip
repeat CXR suggests pulmonary edema
bipap trial, now off bipap and supplemental oxygen
collateral from her tester sound's office: [facility] [phone]
NSTEMI in 03/2024, is on aspirin, plavix and metoprolol snf
baseline creatinine appears to be 1.5-1.7
additonal PMH per collateral: T2DM, CKD stage 3, HTN
her pacemaker is [employer]bel placed in 2002, changed in 2020, and is NOT MRI compatible
Objective Data
-
Labs:
Laboratory Results
12/18/24 12/18/24 12/18/24
22:25 22:28 23:19
WBC 9.1
Hgb 9.6 L
Hct 29.4 L
Plt Count 217
APTT 159.3 H* 111.6 H
HCO3 22.6
Sodium 131 L
Potassium 4.6
Chloride 101
Carbon Dioxide 20 L
BUN 35 H
Creatinine 1.5 H
Glucose 300 H
Calcium 8.9
12/19/24 12/19/24 12/19/24
04:49 05:16 06:00
WBC 11.2 H
Hgb 8.9 L
Hct 26.6 L
Plt Count 197
APTT 72.0 H
HCO3 23.8
Sodium 132 L Cancelled
Potassium 4.8 Cancelled
Chloride 100 Cancelled
Carbon Dioxide 26 Cancelled
BUN 41 H Cancelled
Creatinine 1.6 H Cancelled
Glucose 120 H Cancelled
Calcium 9.5 Cancelled
12/19/24
12:00
WBC
Hgb
Hct
Plt Count
APTT Pending
HCO3
Sodium
Potassium
Chloride
Carbon Dioxide
BUN
Creatinine
Glucose
Calcium
proBNP of 14,000
Studies
Studies:
CXR = prominent pulmonary vascularity; pleural effusions small;
repeat this morning: improved
Echocardiogram 12/19/2024
SUMMARY
1. Top normal left ventricular size, global hypokinesis with mid and apical septal akinesis, EF 30-35% by visual estimate and Daniel's method.
2. Mitral annular calcification, thickened leaflets, mild to moderate mitral regurgitation and dilated left atrium.
3. Sclerosis with mild aortic regurgitation.
4. Normal right heart, pacing wire seen, pulmonary artery systolic pressure is 54 mmHg.
5. No prior studies available for comparison.
Vital Signs:
Vital Signs
Temp Pulse Resp BP Pulse Ox
97.9 F 63 14 118/48 98
12/19/24 04:00 12/19/24 06:45 12/19/24 06:45 12/19/24 06:00 12/19/24 07:00
I&O
12/18/24 12/19/24 12/20/24
06:59 06:59 06:59
Intake Total
Balance
Review of Systems
-
History Source: Patient
Constitutional: Reports No Symptoms
Respiratory: Reports No Symptoms
Cardiac: Reports Other (no chest pain but heaviness)
Abdomen/GI: Reports Nausea
Skin: Reports No Symptoms
Neuro: Reports Lightheadedness
Hematologic / Lymphatic: Reports No Symptoms
Physical Exam
-
HEENT: Normocephalic and Atraumatic
Respiratory: Clear to Auscultation
Cardiac: Regular Rhythm, S1/S2 and Other (no murmus on my exam)
GI: Soft and Nontender
Musculoskeletal: Other (tenderness to palpation of right calf but no warmth)
Skin: Warm and Dry
Neuro: Awake and Alert
Psych: Calm
[2024-12-19 07:34] LABS: Reticulocyte Count 2.5 % (0.4-2.8)
--- NOTE | 2024-12-19 07:37 | CON.INTV ---
Consultation
Consultation Request
Date/Time Consultation Requested: 12/18/2024
Date/Time Consultation Performed: 12/19/2024
Medical History
-
Chief Complaint: Chest pain
History of Present Illness:
Patient is a very pleasant 81-year-old female who was admitted to the hospital on 12/18 with chest pain and elevated troponin. She was felt to have non-ST elevation HI and was started on medical management and admitted to the hospital. She was
evaluated by cardiology service. Overnight patient developed worsening chest pain 8 out of 10 as well as hypoxia which required supplemental oxygen and in view of worsening shortness of breath she had a follow-up x-ray which showed significantly
worsening pulmonary opacities consistent with pulmonary edema. Patient was eventually switched to nonrebreather and subsequently transferred to ICU and initiated on BiPAP. Patient also received sublingual nitro was started on nitro infusion as
well as IV diuresis. Neurobiologist consultation was requested for further input.
This morning, patient is being trialed off BiPAP. She continues to report of mild epigastric discomfort radiating to her chest overall improved. She is hemodynamically stable. EKG this morning concerning for some ST dynamic changes in anterior
leads, cardiology service contacted stat.
Past Medical History
Past Medical History: Reports Other
Additional Past Medical History:
Arrthythmia (remote hx A-fib s/p ablation), CHF, COPD, HTN, Hypercholesterolemia and Other (DM, osteoporosis)
Past Surgical History: Reports Other
Additional Past Surgical History:
Cholecystectomy and Other (PARTIAL HYSTERCTOMY CATARACTS PACEMAKER PLACEMENT 2002 GALLBLADDER REMOVED PACEMAKER GENERATOR CHANGE 01/2011 Right Hip Replacement)
Social History
Tobacco: Former Smoker
Alcohol: None
Drug: None
Personal:
Living: With Family
Employment: Retired
Family History
Family History: Not pertinent
Allergies / Home Medications
Allergies
Allergy/AdvReac Type Severity Reaction Status Date / Time
dexamethasone (From Maxitrol) Allergy Unknown Verified 02/13/21 09:11
neomycin (From Maxitrol) Allergy Unknown Verified 02/13/21 09:11
polymyxin B (From Maxitrol) Allergy Unknown Verified 02/13/21 09:11
sulfamethoxazole (From Allergy Unknown Verified 02/13/21 09:11
Bactrim)
trimethoprim (From Bactrim) Allergy Unknown Verified 02/13/21 09:11
Home Medications
�Medication �Instructions �Recorded �Confirmed �Last Taken �Type
omeprazole magnesium 20 mg 20 mg PO DAILY Gastrointestinal 02/18/12 12/18/24 12/18/24 History
tablet,delayed release (Prilosec Issue
OTC)
aspirin 81 mg chewable tablet 81 mg PO DAILY Blood Clot 02/13/21 12/18/24 12/18/24 History
(Rayo Chewable Low Dose Aspirin) Prevention/Tx
atorvastatin 40 mg tablet 40 mg PO DAILY High Cholesterol 02/13/21 12/18/24 12/18/24 History
dulaglutide 0.75 mg/0.5 mL 0.75 mg SQ MO Diabetes 02/13/21 12/18/24 12/12/24 History
subcutaneous pen injector
(Trulicity)
tolterodine 2 mg tablet 2 mg PO BID Urinary Issue 02/13/21 12/18/24 12/18/24 History
amiodarone 200 mg tablet 200 mg PO DAILY Arrhythmia 12/18/24 12/18/24 12/18/24 History
bisacodyl 5 mg tablet,delayed 5 mg PO DAILYPRN PRN constipation 12/18/24 12/18/24 Unknown History
release (Dulcolax (bisacodyl))
clopidogrel 75 mg tablet 75 mg PO DAILY Blood Clot 12/18/24 12/18/24 12/18/24 History
Prevention/Tx
fluticasone propionate 115 2 puff inhalation BID 12/18/24 12/18/24 12/17/24 History
mcg-salmeterol 21 mcg/actuation
HFA inhaler
fluticasone propionate 50 1 spray intranasal DAILYPRN PRN 12/18/24 12/18/24 Unknown History
mcg/actuation nasal allergies
spray,suspension
latanoprost 0.005 % eye drops 1 drp BOTH EYES HS Eye Condition 12/18/24 12/18/24 12/17/24 History
loratadine 10 mg tablet (Claritin) 10 mg PO DAILY PRN allergies 12/18/24 12/18/24 12/11/24 History
metoprolol succinate 50 mg 50 mg PO DAILY Blood Pressure 12/18/24 12/18/24 12/18/24 History
tablet,extended release 24 hr
mometasone-formoterol HFA 200 1 puff inhalation R DAILY 12/18/24 12/18/24 12/18/24 History
mcg-5 mcg/actuation aerosol Lung/Breathing Issues
inhaler (Dulera)
ondansetron 4 mg disintegrating 4 mg PO Q6HPRN PRN nausea 12/18/24 12/18/24 Unknown History
tablet
pioglitazone 15 mg tablet 15 mg PO DAILY Diabetes 12/18/24 12/18/24 12/18/24 History
polyethylene glycol 3350 17 gram 17 g PO DAILYPRN PRN constipation 12/18/24 12/18/24 Unknown History
oral powder packet
torsemide 10 mg tablet 10 mg PO DAILY Fluid 12/18/24 12/18/24 12/18/24 History
Retention/Swelling
Review of Systems
-
Hematologic/Lymphatic: Other (All 14 systems reviewed and negative except as stated above in the history of present illness.)
Vitals / Labs / Diagnostic Testing
Vital Signs
Temp Pulse Resp BP Pulse Ox
97.9 F 63 14 118/48 98
12/19/24 04:00 12/19/24 06:45 12/19/24 06:45 12/19/24 06:00 12/19/24 07:00
Lab Data
12/19/24 04:49
12/19/24 06:00
Laboratory Results
12/18/24 12/18/24 12/18/24
15:40 22:25 22:28
PT 15.5 H
INR 1.20
APTT 27.7 159.3 H*
pH 7.29 L
pCO2 47 H
pO2 96
HCO3 22.6
O2 Delivery Level
12/18/24 12/19/24 12/19/24
23:19 04:49 05:16
PT
INR
APTT 111.6 H 72.0 H
pH 7.44
pCO2 35
pO2 72 L
HCO3 23.8
O2 Delivery Level Bipap
Diagnostic Testing:
Physical Exam
-
HEENT: Normocephalic
Cardiovascular: S1/S2 and Peripheral Edema
Respiratory: Rales
GI: Soft and Non Distended
Neurology: Awake and Alert
Skin: Warm
General: Comfortable
Assessment
-
#1. Acute hypoxic respiratory failure with pulmonary edema
- ABG 7.4 on BiPAP
- Chest x-ray 12/18, shows pulmonary edema which is significantly changed from an x-ray 4 hours ago
- Patient required BiPAP overnight as well as IV Lasix with gradual improvement
- Trial off BIPAP. f/u CXR
#2. Pulmonary edema with acute heart failure, ejection fraction unknown
- Echocardiogram pending
- Continue IV Lasix
- Acute pulmonary edema and respiratory failure prompted transfer to ICU, required BiPAP support
- On Lasix 40 mg IV twice daily
#3. Acute myocardial infarction. ?STEMI
- Patient currently on aspirin, Plavix, Lipitor, heparin infusion, metoprolol. Nitro drip has been weaned off.
- Cardiology service on case
- AM EKG appears to have some ST elevation in anterior leads, contacted cardiology service stat. Subsequent EKG improving.
- Patient is off nitro infusion now, continues to complain of some epigastric pressure-like sensation radiating to her chest
- N.p.o. except ice chips and meds
#4. h/o Atrial fibrillation, s/p ablation and pacemaker placement
- s/p Ablation in 2011
- Has not been on Anticoagulation
- Has been on Amiodarone PO prior to admission
#5. H.o Smoking and COPD
- Patient on LABA/ICS at home, current presentation not consistent with COPD exacerbation
- Continue inhaler therapy
- Rapid changes on CXR more suggestive of Pulmonary edema rather than Pneumonia. Will check PCT.
Other medical diagnoses:
- HTN
- HLD
- CKD stage III. Monitor creatinine closely while on IV diuresis
- DM
- PVD
Critical Care time 65 mins -- The patient is admitted for acute critical illness for the treatment of vital organ failure and/or prevention of further life-threatening conditions. Total care includes time spent in review of history, physical exam,
medications, hemodynamic/ventilator parameters, laboratory data, imaging and discussion with house staff, pharmacy, respiratory therapy, steak tenderizer machine, and nursing.
d/w Cardiology service.
Data:
CXR 12/18/2024: Bilateral pulmonary opacities for which considerations include pneumonia or pulmonary edema.
02/2012 EP study: Complex LA mapping and ablation.
[2024-12-19 07:46] LABS: Iron 70 ug/dl (37-170); LDH 269 U/L (120-246)
[2024-12-19] MEDS: DETROL 2 MG PO ×2 (07:47→21:36)
[2024-12-19] MEDS: PLAVIX 75 MG PO (07:47)
[2024-12-19] MEDS: PROTONIX 20 MG PO (07:47)
[2024-12-19] MEDS: LOW STRENGTH ASPIRIN 81 MG PO (07:47)
[2024-12-19] MEDS: PACERONE 200 MG PO (07:53)
[2024-12-19] MEDS: TOPROL XL 50 MG PO (07:54)
[2024-12-19 07:56] LABS: Total Iron Binding Capacity 343 ug/dl (265-497)
[2024-12-19] MEDS: SYMBICORT 160/4.5 MCG INHALER 2 PUFF INH ×2 (07:58→20:42)
--- NOTE | 2024-12-19 08:05 | PTCARENOTE ---
Rec'd care of patient at 0700. Patient alert and oriented. MAEx4. Slightly anxious; reassurance provided. Apaced/NSR on tele. Rate in the 60's. C/o some pressure/heaviness in chest. Staff Analyst aware. Trace edema in b/l ankle. Weaned off bipap 04/17
4L at 0740 by RT. Pulse ox 100% on 2L nc. +BS. NPO except meds. Voiding via bedpan. Heparin gtt infusing through peripheral INT. Call carreno within reach.
--- NOTE | 2024-12-19 08:35 | W.PN.CARDCBS ---
Today's Communication / Plan
-
Continue IV Lasix
IV nitro as tolerated
May need to consider cardiac catheterization based on clinical course
Impression / Plan
-
Supervisor Electric: Dr. Avery
Impression:
Chest discomfort Non-Q wave myocardial infarction first troponin 1.35
Acute heart failure with reduced EF
Atrial fibrillation paroxysmal
Status post PVI 2011 (Dr. Cassidy)
Heart failure unknown ejection fraction
Permanent pacemaker [employer] last generator change 2020 (Dr. Hodges)
Hyperlipidemia
Diabetes mellitus
Peripheral vascular
CKD 4
Echo 12/19/2024: EF 30-35%, which is new compared to 2023, mild to moderate MR, aortic sclerosis with mild AI, pulmonary artery systolic pressure is 54 mmHg, pacing wire seen, left atrium mildly dilated
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
LAD, LVEDP was 25
Plan:
She looks relatively comfortable at present but still has ongoing discomfort with a troponin that is modestly elevated. 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 She also had diagonal disease, so it is uncertain whether this
is possibly related to an ACS with new diagonal or LAD disease or whether troponin elevation is a non-ACS myocardial injury, sossibly precipitated by recent hospital stay for hyponatremia with recurrent paroxysmal atrial fibrillation, RVR, now back
in sinus rhythm on IV amiodarone.
For now continue IV Lasix and heparin, nitroglycerin as possible.
Given CKD, will need to consider whether an invasive strategy is a good idea.
Continue amiodarone for atrial fibrillation.
Will need to follow hemoglobin
Progress Note - Supervisor Electric
Subjective
Date of Service: December 19, 2024:
Complex 89-year-old patient of Dr. Bennie recently admitted to [facility] for possible AF, admitted on December 18 with chest discomfort and troponin of 1.35 with a paced rhythm and ST and T changes beyond baseline
PMH: PAD, diabetes, hyperlipidemia, PAF, [employer] pacemaker status post PVI in 2011, CKD, anemia, glaucoma
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
, lives with family
Current meds: Aspirin 81 a day, atorvastatin 40 mg 3 days a week, Xalatan, pantoprazole, Detrol, Plavix 75 a day, amiodarone 200 mg a day, metoprolol ER 50 mg daily, Symbicort, IV nitroglycerin, furosemide 40 mg IV twice daily
At [facility]: Sodium was 118 at presentation, other diagnoses included COPD, headache, constipation, CKD 4, creatinine ranging from 1.57-1.83 she had been on thiazide diuretics,, was in atrial fibrillation, amiodarone was added
122/50, pulse 68, resprate 20, sats 100%, weight is 56.5 kg, pleasant, crackles right greater than left, JVD not dramatically elevated, soft systolic murmur, not much edema
Chest x-ray asymmetric pulmonary edema/effusions
ECG atrial paced, ST elevation with evolving anterior T wave changes
Hemoglobin 8.9, Was 10, pH 7.44, FTU780, PO272, sodium 132, potassium 4.2, BUN/creatinine 41 and 1.6, overall stable, troponin 1.28 had been 1.5, proBNP 14,000
Objective
Labs:
12/19/24 04:49
12/19/24 06:00
Labs
Hgb 8.9 g/dL (12.0-16.0) L 12/19/24 04:49
Hct 26.6 % (37.0-47.0) L 12/19/24 04:49
Plt Count 197 10^3/uL (130-400) 12/19/24 04:49
PT 15.5 Sec (11.4-14.6) H 12/18/24 15:40
INR 1.20 12/18/24 15:40
APTT 72.0 Sec (23.4-35.0) H 12/19/24 04:49
Sodium Cancelled 12/19/24 06:00
Potassium Cancelled 12/19/24 06:00
BUN Cancelled 12/19/24 06:00
Creatinine Cancelled 12/19/24 06:00
Glucose Cancelled 12/19/24 06:00
Troponins
12/18/24 12/18/24 12/18/24
14:39 15:40 22:28
Troponin I 1.350 H* 1.250 H* 1.510 H*
12/19/24
04:49
Troponin I 1.280 H*
Vital Signs and I&O:
Vital Signs
Temp Pulse Resp BP Pulse Ox
36.6 C 68 20 122/50 100
12/19/24 04:00 12/19/24 08:08 12/19/24 08:08 12/19/24 07:54 12/19/24 08:08
Vital Signs
Temp Pulse Resp BP Pulse Ox
36.6 C 68 20 122/50 100
12/19/24 04:00 12/19/24 08:08 12/19/24 08:08 12/19/24 07:54 12/19/24 08:08
Intake & Output
12/17/24 12/18/24 12/19/24 12/20/24
07:59 07:59 07:59 07:59
Intake Total 57 184 127 / 127
Balance 57 / 184 127 / 127
Physical Exam
Physical Exam
See above
--- NOTE | 2024-12-19 09:07 | PTCARENOTE ---
Repeat EKG completed. Echo in progress.
[2024-12-19 09:32] LABS: Ferritin 30.0 ng/ml (11.1-264.0)
[2024-12-19] MEDS: LASIX 40 MG IV ×2 (09:34→16:19)
[2024-12-19 10:03] LABS: Folate 13.2 ng/ml (2.76-20); Vitamin B12 357 pg/ml (239-931)
[2024-12-19 11:00] LABS: Glycohemoglobin (HgbA1c) 8.1 % (4.0-5.6)
[2024-12-19 11:32] LABS: Glucose - Point of Care 119 mg/dl (70-99)
--- NOTE | 2024-12-19 12:04 | CM ---
Chart reviewed; PT will evaluate when patient is medically stable. Case Management will continue to monitor and support when disposition needs are determined
[2024-12-19] MEDS: SENOKOT-S 1 TABLET PO (12:06)
[2024-12-19 12:24] LABS: APTT 65.6 Sec (23.4-35.0)
--- NOTE | 2024-12-19 12:24 | PTCARENOTE ---
No major changes in assessment. Patient resting comfortably. Denies cp. VSS. No BM since 12/16. Senokot administered. Repeat PTT sent.
--- NOTE | 2024-12-19 16:19 | PTCARENOTE ---
Systems reviewed. Weaned to RA. Pulse ox 94%. Lung sounds diminished. Scattered crackles and rhonchi. IV Lasix administered as ordered. No other changes. VSS.
[2024-12-19] MEDS: NITROGLYCERIN PREMIX 250 IV (17:57)
[2024-12-19] MEDS: LIPITOR 40 MG PO (18:13)
--- NOTE | 2024-12-19 18:19 | PTCARENOTE ---
Patient c/o 08/18 cp. Brim Plater notified. Repeat EKG. Nitro drip restarted at 7 mcg/min per Brim Plater.
[2024-12-19 18:34] LABS: Glucose - Point of Care 117 mg/dl (70-99)
[2024-12-19 19:06] LABS: APTT 107.2 Sec (23.4-35.0)
[2024-12-19 19:25] LABS: Procalcitonin 0.60 ng/ml (0.0-0.25)
[2024-12-19] MEDS: TYLENOL 650 MG PO (21:35)
[2024-12-19] MEDS: XALATAN OPHTHALMIC SOLUTION 1 DROP BOTH EYES (21:36)
[2024-12-20] VITALS (33 sets, daily range): BP systolic 100–141; BP diastolic 39–90; BMI 22.7
--- NOTE | 2024-12-20 | PTCARENOTE ---
Pt denies chest pain. Nitro gtt turned off per protocol.
[2024-12-20 00:18] LABS: Glucose - Point of Care 109 mg/dl (70-99)
[2024-12-20 00:18] LABS: Glucose - Point of Care 111 mg/dl (70-99)
[2024-12-20 01:24] LABS: APTT 104.6 Sec (23.4-35.0)
--- NOTE | 2024-12-20 02:00 | PTCARENOTE ---
Pt NPO after midnight for potential cath procedure.
[2024-12-20 03:40] LABS: Hematocrit 25.5 % (37.0-47.0); Hemoglobin 8.5 g/dL (12.0-16.0); Mean Corp Hgb Conc. 33.3 g/dL (33.0-37.0); Mean Corpuscular Volume 95.9 fL (81.0-99.0); Platelet Count 192 10^3/uL (130-400); Red Cell Dist. Width 13.9 % (11.5-14.5)
[2024-12-20] MEDS: HEPARIN 25000 UNITS/250 ML IV (04:03)
[2024-12-20 04:17] LABS: Troponin I 0.822 ng/ml
[2024-12-20 04:21] LABS: Blood Urea Nitrogen 42 mg/dl (7-17); Calcium 9.3 mg/dl (8.4-10.2); Carbon Dioxide 24 mmol/L (22-30); Chloride 99 mmol/L (98-107); Estimated Creatinine Clearance 18 ml/min; Glucose 105 mg/dl (70-99); Potassium 4.1 mmol/L (3.5-5.1); Sodium 133 mmol/L (135-145); eGFR 30.83
--- NOTE | 2024-12-20 07:05 | W.PN.HOSP.TC ---
Addendum entered and electronically signed by Best Morris MD 12/20/24 21:07:
Attending Addendum-
I saw and evaluated the patient. I reviewed the resident�s note and agree with findings and plan as documented in the resident�s note. Sub: patient with CP overnight and placed back on nitro gtt. Bing son is CP free. I feel the bes ti ever
have' currently off o2. Seen with brother present. Still with CLARK but improved. Denies fevers chills. Complains of productive cough. Full 12 point ROS reviewed and negative except as documented Exam: Vitals reviewed in chart GEN-NAD heart RRR no
MRG lungs crackles and rhonchi at b/l bases abd soft LE trace LE edema b/l
Plan:
#NSTEMI - ACS
-Currently chest pain-free
-Troponin peaked
-EKG personally reviewed shows ST depression lateral leads
-cont Aspirin/metoprolol/Plavix/atorvastatin
-cont hep gtt
-dc nitro gtt -> Norvasc and imdur
-Cardiology input appreciated
-echo 12/19-. Top normal left ventricular size, global hypokinesis with mid and apical septal akinesis, EF 30-35%
2. Mitral annular calcification, thickened leaflets, mild to moderate mitral regurgitation and dilated left atrium.
-previous EF @ 54%
-no plan for cath- medically manage- start SGLT2i, hold off on ellis due to CKD, start MRA when able
-transfer to tele
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
-cont IV lasix - transition to PO lasix in am
-strict I and O daily weights fluid restrict
-Cardiology input appreciated
-echo as above EF 30-35% reduced from previous
-GDMT- cont toprol XL, MRA as OP, unable to start ELLIS/ARB due to renal failure start combo SGLT1i GLP1 when able-zuñiga out empag and dapag with CM
#Acute Hypoxemic Respiratory Failure
- weaned off bipap and supplemental
# CAP
- b/l PNA
- cxr personally reviewed
- start ceftriaxone and doxycycline
#Paroxysmal A-fib status post ablation/PPM, status post Watchman
-Rate controlled
-Continue metoprolol and amiodarone
-Patient not on anticoagulation at home
#Normocytic anemia-monitor CBC
# Hyponatremia
- hypervolemic
- trend,cont IV lasix
#CKD 3b
-stable
-@ baseline
-avoid NT agents
#DM
-Insulin sliding scale
-Hemoglobin A1c-8.1
-c/s DM management
-on trulicity (GLP1) as OP-held
# HLD
Continue atorvastatin
# COPD
Patient was former smoker.
Continue home inhalers
No sign of acute exacerbation
CODE STATUS: Full code->DNR
DVT prophylaxis: Heparin drip
Dispo DC home soon PT OT eval
Time spent coordinating care, review of plan of care with resident, personally reviewed records in EMR, med rec, consults, notes, labs, radiology, d/w nursing icu cards � 55 mins
Original Note:
Today's Communication/Plan
-
- continue furosemide
- abx for possible pneumonia
- continue aspirin, clopidogrel, metoprolol succinate, heparin, amiodarone
- monitor I/Os
Assessment / Plan
Assessment / Plan
In summary this is an 89 yo F who presented with chest pain, and workup revealed NSTEMI
# NSTEMI
- Troponin 1.350 --> 1.250
- EKG in ER: ST depression lateral leads
- Cardiology prefers medical management to manage symptoms rather than cath given age; high risk procedure
- she's on aspirin, clopidogrel, metoprolol, heparin drip
- per cardiology, now on isosorbide mononitrate for pain relief/symptom relief
# HFpEF --> HFrEF
# Acute on chronic exacerbation of HF
- likely triggered by NSTEMI/ACS
- she had acute on chronic exacerbation last week 12/11-12/16) at [facility]
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
- echo this admission was LVEF 30-35%, ie reduced EF
- f/u cardiology recommendations
- continue furosemide 40mg IV
# community acquired pneumonia
- infiltrates possibly visible on CXR compared to prior
- likely CAP because of timecourse
- elevated procalcitonin may be c/w infectious process
- ceftriaxone and doxycycline for bacterial coverage for CAP
# acute hypoxic respiratory failure -- resolved
- overnight, desat to 87%
- trial BIPAP but now on room air
- no crackles on my exam, lower extremity edema appears improved
- continue furosemide 40mg IV
# Right lower extremity calf tenderness
- hx of DVT
- ultrasound did not show DVT
# Paroxysmal atrial fibrillation s/p ablation with watchman
- Continue metoprolol, amioadarone
- does not seem to be on DOAC, DAPT on the medicines post discharge from [facility]
- [employer] pacemaker placed in 2002, changed in 2020, and is NOT MRI compatible
# Anemia
- Hgb 8.9 from 10.0 yesterday
- LDH came in elevated, unclear if points toward possible hemolysis or acute phase reactant from stress of ACS
- on heparin
- Plt from 224 to 197
# CKD stage 3b
- Creatinine baseline is ~1.5 per collateral.
- eGFR is calculated 39
- monitor BMP
# Hyponatremia
- Na+ 132
- no fluid for now given HF exacerbation
- also received lasix
- monitor BMP
# Diabetes mellitus - type 2
- sliding scale insulin - moderate resistance
- at home, takes dulaglutide
- Hemoglobin A1c 8.1%; however, given age of 89, this may be considered a reasonable target (7.5-8.5% for A1c).
- hold trulicity
# HTN - continue metoprolol
# HLD - continue atorvastatin
# COPD - continue mometasone-formeoterol, fluticasone
DVT ppx: Heparin drip
Disposition: pending medical improvement
Code status: DNR
Anticipated Discharge: 24 - 48 hours
Subjective/Interval History
-
Date of Service: December 20, 2024
started nitro and stopped nitro yesterday evening
chest heaviness this morning, currently on nitrodrip 100mg in 250 mls
troponin overnight 0.8
Objective Data
-
Labs:
Laboratory Results
12/19/24 12/20/24 12/20/24
18:31 00:50 03:30
WBC 7.3
Hgb 8.5 L
Hct 25.5 L
Plt Count 192
APTT 107.2 H 104.6 H
Sodium 133 L
Potassium 4.1
Chloride 99
Carbon Dioxide 24
BUN 42 H
Creatinine 1.6 H
Glucose 105 H
Calcium 9.3
Vital Signs:
Vital Signs
Temp Pulse Resp BP Pulse Ox
98.2 F 62 17 130/48 98
12/20/24 03:05 12/20/24 05:30 12/20/24 05:30 12/20/24 05:30 12/20/24 05:30
I&O
12/19/24 12/20/24 12/21/24
06:59 06:59 06:59
Intake Total 50 / 57 310.4 / 310.4
Output Total 1220 / 1220
Balance 50 / 57 -909.6 / -909.6
Review of Systems
-
History Source: Patient
Constitutional: Reports No Symptoms
Respiratory: Reports No Symptoms
Cardiac: Reports Other (chest pressure near bottom sternal/epigastric)
Abdomen/GI: Reports No Symptoms
Musculoskeletal: Reports No Symptoms
Neuro: Reports No Symptoms
Physical Exam
-
General: No Apparent Distress
HEENT: Normocephalic and Atraumatic
Respiratory: Clear to Auscultation
Cardiac: Regular Rhythm and Other (no murmurs on my exam)
GI: Soft and Nontender
Musculoskeletal: Other (trace to 1+ MIQUEL, tenderness to palpation of right calf)
Skin: Warm and Dry
Neuro: AO x 3
Psych: Calm
[2024-12-20] MEDS: NOVOLOG FLEXPEN-MODERATE RESISTANCE SC (07:22)
[2024-12-20 07:24] LABS: Glucose - Point of Care 108 mg/dl (70-99)
[2024-12-20] MEDS: SYMBICORT 160/4.5 MCG INHALER 2 PUFF INH ×2 (07:39→20:16)
--- NOTE | 2024-12-20 07:42 | W.PN.CARDCBS ---
Addendum entered and electronically signed by Maynor Edouard MD 12/20/24 15:18:
Attending addendum: Patient seen and examined. PA note reviewed and findings independently confirmed by me. I met with Ms. Elizalde and her granddaughter. She has been feeling well. Off IV nitroglycerin and started on isosorbide. I discussed the
angiograms with Dr. Hodges who will likely review again tomorrow and evaluate Ms. Santana. The prior angiogram from March 2024 is notable for a chronically occluded RCA and chronically occluded circumflex. Both vessels are heavily calcified.
The right coronary fills via septal collaterals from the LAD and the circumflex/OM branches fills via left to left collaterals. I would try to treat fairly conservatively and maintain sinus rhythm. I am not sure if she is or is not a candidate for
long-term oral anticoagulation. Hemoglobin is borderline. LVEF is moderately reduced. We could consider adding amlodipine to medical regimen as an additional antianginal. Will eventually need to ambulate patient but for now appears stable.
Original Note:
Today's Communication / Plan
-
resuming IV nitro, would attempt to transition to imdur if becomes CP free
ongoing discussions regarding risk vs benefit of cardiac cath
continue asa, plavix, IV heparin, toprol, statin
Impression / Plan
-
Electrifier Operator: Dr. Avery
Impression:
Chest discomfort
NSTEMI
Acute heart failure with reduced EF
CM, EF 35% by echo 12/19/24
CAD with known MEDICAL ADMINISTRATIVE ASSISTANT of circ, RCA and residual diag, LAD disease, medically managed
Atrial fibrillation paroxysmal
Status post PVI 2011 (Dr. Cassidy)
Permanent pacemaker [employer] last generator change 2020 (Dr. Hodges)
Hyperlipidemia
Diabetes mellitus
Peripheral vascular
CKD 4
Hyponatremia
Echo 12/19/2024: EF 30-35%, which is new compared to 2023, mild to moderate MR, aortic sclerosis with mild AI, pulmonary artery systolic pressure is 54 mmHg, pacing wire seen, left atrium mildly dilated
Cardiac catheterization March 2024: Normal left main, calcified LAD 50% smooth proximal LAD, 70 to 80% stenosis in ostial D1 70% D2 proximal MEDICAL ADMINISTRATIVE ASSISTANT of circumflex: RCA with proximal total occlusion and faint collaterals from conus and more so from
LAD, LVEDP was 25
Plan:
-she presented with chest discomfort after recent admission to [facility] for afib and CHF.
-trop peaked at 1.5
-IV nitro was turned off last night per protocol around 11:30PM per nursing and patient now with recurrent chest tightness/pressure. will resume IV nitro gtt @5 and consider transitioning to imdur
-she has known MEDICAL ADMINISTRATIVE ASSISTANT of circ and RCA, and by last cath was also noted to have diagonal/LAD disease which was medically managed.
-echo with EF 30-35% 12/19, appears to be new reduction. continue toprol. not candidate for arvind/arb/arni/aldactone given CKD.
-she remains in SR on review of tele. occasional pacing, 1 3-beat run of NSVT. continue amiodarone
-she has Cr of 1.6 and hgb of 8.5. she also reports significant discomfort with past caths, and has expressed that she would like to try to avoid cath if possible
-continue asa, plavix, IV heparin.
-hemetest stools
-LDL 61. on lipitor 40mg MWF
-continue IV lasix. was on torsemide 10mg daily prior to admission. weight trending down from admission if accurate.
-procal elevated at 0.6. defer treatment to primary service
-d/w nursing
Progress Note - Electrifier Operator
Subjective
Date of Service: December 20, 2024
reports some chest tightness/pressure since IV nitro turned off
Objective
Labs:
12/20/24 03:30
12/20/24 03:30
Labs
Hgb 8.5 g/dL (12.0-16.0) L 12/20/24 03:30
Hct 25.5 % (37.0-47.0) L 12/20/24 03:30
Plt Count 192 10^3/uL (130-400) 12/20/24 03:30
PT 15.5 Sec (11.4-14.6) H 12/18/24 15:40
INR 1.20 12/18/24 15:40
APTT 104.6 Sec (23.4-35.0) H 12/20/24 00:50
Sodium 133 mmol/L (135-145) L 12/20/24 03:30
Potassium 4.1 mmol/L (3.5-5.1) 12/20/24 03:30
BUN 42 mg/dl (7-17) H 12/20/24 03:30
Creatinine 1.6 mg/dL (0.6-1.0) H 12/20/24 03:30
Glucose 105 mg/dl (70-99) H 12/20/24 03:30
Troponins
12/18/24 12/18/24 12/18/24
14:39 15:40 22:28
Troponin I 1.350 H* 1.250 H* 1.510 H*
12/19/24 12/20/24
04:49 03:30
Troponin I 1.280 H* 0.822 H*
Vital Signs and I&O:
Vital Signs
Temp Pulse Resp BP Pulse Ox
98.2 F 71 17 137/56 98
12/20/24 03:05 12/20/24 07:00 12/20/24 07:00 12/20/24 06:30 12/20/24 07:00
Vital Signs
Temp Pulse Resp BP Pulse Ox
98.2 F 71 17 137/56 98
12/20/24 03:05 12/20/24 07:00 12/20/24 07:00 12/20/24 06:30 12/20/24 07:00
Intake & Output
12/17/24 12/18/24 12/19/24 12/20/24
07:59 07:59 07:59 07:59
Intake Total 303.4 / 303.4
Output Total 1220 / 1220
Balance 57 184 -916.6 / -916.6
Physical Exam
Physical Exam
GEN: No distress, awake, alert, oriented x3
HEENT: supple, anicteric, mmm, eomi
LUNGS: CTA B/L, no wheezes/rales
CV: Reg, S1/S2, no murmur
ABD: soft, BS+, NT/ND
EXT: No cyanosis, clubbing, edema
NEURO: Gross non-focal
SKIN: Warm, pink, dry. No rash. Ecchymoses of B/L hands
[2024-12-20] MEDS: MIRALAX 17 GRAMS PO (08:04)
[2024-12-20] MEDS: PLAVIX 75 MG PO (08:05)
[2024-12-20] MEDS: LOW STRENGTH ASPIRIN 81 MG PO (08:05)
[2024-12-20] MEDS: TOPROL XL 50 MG PO (08:05)
[2024-12-20] MEDS: PACERONE 200 MG PO (08:05)
[2024-12-20] MEDS: SENOKOT-S 1 TABLET PO (08:05)
[2024-12-20] MEDS: PROTONIX 20 MG PO (08:06)
[2024-12-20] MEDS: LASIX 40 MG IV ×2 (08:06→15:38)
[2024-12-20] MEDS: DETROL 2 MG PO ×2 (08:06→21:20)
--- NOTE | 2024-12-20 08:26 | PTCARENOTE ---
Rec'd care of patient at 0700. Patient alert and oriented. MAEx4. NSR with occasional pacing on tele monitor. Patient stating 'pressure' in chest is returning. Cardiac PA at bedside. RN instructed to turn nitro gtt back on. Patient stating relief in
cp with nitro drip infusion. Weaned to RA. Pulse ox 98%. Lung sounds shallow, diminished throughout. Minimal crackles scattered throughout. Expiratory wheeze resolved. Non-productive cough present. +BS. Abdomen round/soft/nontender. Patient without
bm since 12/16. PRN bowel regimen administered. Voiding via bedpan. IV Lasix administered as ordered. CHG bath provided and patient repositioned for comfort. VSS. Heparin and Nitro infusing through peripheral INT. See worklist for full assessment and
care.
--- NOTE | 2024-12-20 11:00 | W.PN.INTV ---
Today's Communication / Plan
Recommendations
- Follow-up chest x-ray
- Continue nitro and heparin drip, await cardiology recommendations
Assessment
-
Patient is a very pleasant 81-year-old female who was admitted to the hospital on 12/18 with chest pain and elevated troponin. She was felt to have non-ST elevation NV and was started on medical management and admitted to the hospital. She was
evaluated by cardiology service. Overnight patient developed worsening chest pain 8 out of 10 as well as hypoxia which required supplemental oxygen and in view of worsening shortness of breath she had a follow-up x-ray which showed significantly
worsening pulmonary opacities consistent with pulmonary edema. Patient was eventually switched to nonrebreather and subsequently transferred to ICU and initiated on BiPAP. Patient also received sublingual nitro was started on nitro infusion as
well as IV diuresis. Corn Grinder consultation was requested for further input.
This morning, patient is being trialed off BiPAP. She continues to report of mild epigastric discomfort radiating to her chest overall improved. She is hemodynamically stable. EKG this morning concerning for some ST dynamic changes in anterior
leads, cardiology service contacted stat.
#1. Acute hypoxic respiratory failure with pulmonary edema
- ABG 7.4 on BiPAP 12/19
- Chest x-ray 12/18, shows pulmonary edema which is significantly changed from an x-ray 4 hours ago
- Responded very well to diuresis and BiPAP, follow-up chest x-ray significantly improved.
- Off BiPAP now, currently on room air saturating in mid 90s.
#2. Pulmonary edema with acute heart failure, ejection fraction unknown
- Echocardiogram pending
- Continue IV Lasix
- Acute pulmonary edema and respiratory failure prompted transfer to ICU, required BiPAP support, on room air now
- On Lasix 40 mg IV twice daily
#3. Acute myocardial infarction. ?STEMI
- Patient currently on aspirin, Plavix, Lipitor, heparin infusion, metoprolol. Nitro drip restarted
- Cardiology service on case
- Await further recommendations
- Patient currently on heparin and nitro infusion
#4. h/o Atrial fibrillation, s/p ablation and pacemaker placement
- s/p Ablation in 2011
- Has not been on Anticoagulation
- Has been on Amiodarone PO prior to admission
#5. H.o Smoking and COPD
- Patient on LABA/ICS at home, current presentation not consistent with COPD exacerbation
- Continue inhaler therapy
- Rapid changes on CXR more suggestive of Pulmonary edema rather than Pneumonia. PCT minimally elevated. However patient has normal white count, continues to be afebrile and does not have typical symptoms. Follow-up chest x-ray today.
Other medical diagnoses:
- HTN
- HLD
- CKD stage III. Monitor creatinine closely while on IV diuresis
- DM
- PVD
Critical Care time 45 mins -- The patient is admitted for acute critical illness for the treatment of vital organ failure and/or prevention of further life-threatening conditions. Total care includes time spent in review of history, physical exam,
medications, hemodynamic/ventilator parameters, laboratory data, imaging and discussion with house staff, pharmacy, respiratory therapy, clock repair technician, and nursing.
d/w Cardiology service.
Data:
CXR 12/18/2024: Bilateral pulmonary opacities for which considerations include pneumonia or pulmonary edema.
02/2012 EP study: Complex LA mapping and ablation.
Subjective Dataa
Subjective Data
Date of Service:
Date of Service: December 20, 2024
Subjective:
Recurrence of chest pain this morning necessitating reinitiation of nitro drip
Review of Systems
Genitourinary: Other (No new symptoms reported)
Objective Data
Data Reviewed
Vital Signs / I&O / Oxygen:
Vital Signs
Temp Pulse Resp BP Pulse Ox
98.3 F 73 21 135/62 97
12/20/24 08:00 12/20/24 10:03 12/20/24 10:03 12/20/24 10:03 12/20/24 10:03
Intake and Output
12/19/24 12/20/24 12/21/24
06:59 06:59 06:59
Intake Total 50 / 57 310.4 / 318.4 514.4 / 514.4
Output Total 1220 / 1220 100 / 100
Balance 50 / 57 -909.6 / -901.6 414.4 / 414.4
SaO2 97
Nasal Cannula flow liters per 2
minute
Physical Exam
General: Comfortable
HEENT: Normocephalic
Cardiovascular: S1-S2
Respiratory: Clear and Non-Labored Respirations
GI: Soft and Non Distended
Neurology: Awake and Alert
Skin: Warm
Labs/Micro/Reports
Lab Data
12/20/24 03:30
12/20/24 03:30
Laboratory Results
12/19/24 12/19/24 12/20/24
11:57 18:31 00:50
APTT 65.6 H 107.2 H 104.6 H
[2024-12-20 11:47] LABS: Glucose - Point of Care 157 mg/dl (70-99)
[2024-12-20] MEDS: NOVOLOG FLEXPEN-MODERATE RESISTANCE 1 UNITS SC ×2 (12:01→16:28)
--- NOTE | 2024-12-20 12:14 | PTCARENOTE ---
Systems reviewed. No major changes from previous assessment. Assisted oob to void in bsc and then to chair at 1145. Patient c/o some slight lightheadedness upon first standing up. VSS. Denies cp. Resting comfortably in chair. Lung sounds shallow and
more diminished from prior assessment. Remains on RA. Pulse ox 98%. Appetite ok. Patient at 90% of breakfast. Call carreno within reach.
--- NOTE | 2024-12-20 14:07 | PTCARENOTE ---
Per Cardiology, nitro gtt off and Imdur initiated.
[2024-12-20] MEDS: IMDUR (EXTENDED RELEASE) 30 MG PO (14:26)
[2024-12-20] MEDS: ROCEPHIN 1000 MG IV (15:37)
[2024-12-20] MEDS: STERILE WATER FOR INJECTION 10 ML IV (15:37)
--- NOTE | 2024-12-20 15:55 | PTCARENOTE ---
Systems reviewed. Patient remains oob in chair. VSS. NSR/Apaced on tele. Denies cp. Lung sounds improved. Remains on RA. ABX initiated. +BM on bsc. No other changes.
[2024-12-20 16:39] LABS: Glucose - Point of Care 181 mg/dl (70-99)
[2024-12-20] MEDS: VIBRAMYCIN 100 MG PO (21:20)
[2024-12-20] MEDS: XALATAN OPHTHALMIC SOLUTION 1 DROP BOTH EYES (21:20)
[2024-12-20 21:37] LABS: Glucose - Point of Care 190 mg/dl (70-99)
--- NOTE | 2024-12-20 22:06 | PTCARENOTE ---
downgraded to tele LOC. heparin gtt continues. pt OOB in chair, using bedside commode as needed. call carreno in reach.
[2024-12-20] MEDS: ZOFRAN 4 MG IV (23:59)
[2024-12-21] VITALS (20 sets, daily range): BP systolic 91–134; BP diastolic 34–82; PULSE 77; O2SAT 98; BMI 22.0
[2024-12-21 03:53] LABS: Hematocrit 26.6 % (37.0-47.0); Hemoglobin 9.1 g/dL (12.0-16.0); Mean Corp Hgb Conc. 34.2 g/dL (33.0-37.0); Mean Corpuscular Volume 94.3 fL (81.0-99.0); Platelet Count 198 10^3/uL (130-400); Red Cell Dist. Width 13.7 % (11.5-14.5)
[2024-12-21 04:04] LABS: APTT 84.2 Sec (23.4-35.0)
--- NOTE | 2024-12-21 04:40 | PTCARENOTE ---
Received patient from ICU via wheelchair. Patient stood and pivoted from wheelchair to bed with minimal assistance. AAOx3, no current complaints of pain. Oriented patient to room and placed call carreno within reach.
[2024-12-21 04:47] LABS: Blood Urea Nitrogen 44 mg/dl (7-17); Calcium 9.4 mg/dl (8.4-10.2); Carbon Dioxide 28 mmol/L (22-30); Chloride 97 mmol/L (98-107); Estimated Creatinine Clearance 17 ml/min; Glucose 142 mg/dl (70-99); Potassium 4.0 mmol/L (3.5-5.1); Sodium 132 mmol/L (135-145); eGFR 28.67
[2024-12-21 08:07] LABS: Glucose - Point of Care 168 mg/dl (70-99)
--- NOTE | 2024-12-21 08:10 | W.PN.HOSP.TC ---
Addendum entered and electronically signed by Best Morris MD 12/21/24 21:06:
Attending Addendum-
I saw and evaluated the patient. I reviewed the resident�s note and agree with findings and plan as documented in the resident�s note. Sub: no further CP. Seen post cath. 'i feel good and dont wanna go to SNF' Chronic CLARK. Denies fevers chills.
Full 12 point ROS reviewed and negative except as documented Exam: Vitals reviewed in chart GEN-NAD heart RRR no MRG lungs rhonchi at b/l bases abd soft LE trace LE edema b/l right groin bandaged no bruits auscultated DP pulses intact
Plan:
#NSTEMI - ACS
-Currently chest pain-free
-Troponin peaked
-cont Aspirin/metoprolol/Plavix/atorvastatin
-dc'd hep gtt
-dc'd nitro gtt -> Norvasc and imdur
-Cardiology input appreciated
-echo . Top normal left ventricular size, global hypokinesis with mid and apical septal akinesis, EF 30-35%
2. Mitral annular calcification, thickened leaflets, mild to moderate mitral regurgitation and dilated left atrium.
-previous EF @ 54%
-cath Severe two-vessel coronary artery disease with chronic total occlusion of both the right and left circumflex arteries as described above. The LAD is widely patent and appears angiographically unchanged from prior
angiography in March 2024.
2 Elevated pulmonary pressures with high wedge pressure. -start SGLT2i on DC, hold off on ellis due to RACHEL, start MRA as OP
-transferred to IVU post cath
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
-cont IV lasix for now - transition to PO lasix in am
-strict I and O daily weights fluid restrict weights down @ 4kgs
-Cardiology input appreciated
-echo as above EF 30-35% reduced from previous
-GDMT- cont toprol XL, MRA as OP, unable to start ELLIS/ARB due to renal failure start combo SGLT1i GLP1 when able-zuñiga out empag and dapag with CM
#Acute Hypoxemic Respiratory Failure
- weaned off bipap and supplemental 02
# CAP
- b/l PNA
- cont ceftriaxone and doxycycline #2/7
#Paroxysmal A-fib status post ablation/PPM, status post Watchman
-Rate controlled
-Continue metoprolol and amiodarone
-Patient not on anticoagulation
#Normocytic anemia-monitor CBC
# Hyponatremia
- hypervolemic likely
- trend,cont IV lasix BID transition to PO in am
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
-monitor post cath
-avoid NT agents
#DM
-Insulin sliding scale
-Hemoglobin A1c-8.1
-on trulicity (GLP1) as OP-held
# HLD
Continue atorvastatin
# COPD
Patient was former smoker.
Continue home inhalers
No sign of acute exacerbation
CODE STATUS: Full code->DNR
DVT prophylaxis: Heparin drip
Dispo DC in am to home if able- refusing SNF
Time spent coordinating care, review of plan of care with resident, personally reviewed records in EMR, med rec, consults, notes, labs, radiology, d/w nursing � 51 mins
Original Note:
Today's Communication/Plan
-
-cath today
- ceftriaxonea and doxycycline
- f/u cardiology recommendations
Assessment / Plan
Assessment / Plan
In summary this is an 89 yo F who presented with chest pain, and workup revealed NSTEMI
# NSTEMI
- Troponin 1.350 --> 1.250
- EKG in ER: ST depression lateral leads
- she's on aspirin, clopidogrel, metoprolol, heparin drip
- per cardiology, now on isosorbide mononitrate for pain relief/symptom relief
- cath today; held morning furosemide
# HFpEF --> HFrEF
# Acute on chronic exacerbation of HF
- likely triggered by NSTEMI/ACS
- she had acute on chronic exacerbation last week 12/11-12/16) at [facility]
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
- echo this admission was LVEF 30-35%, ie reduced EF
- f/u cardiology recommendations
- hold furosemide 40mg IV this morning
# community acquired pneumonia
- infiltrates possibly visible on CXR compared to prior
- likely CAP because of timecourse
- elevated procalcitonin may be c/w infectious process
- ceftriaxone and doxycycline for bacterial coverage for CAP
# Paroxysmal atrial fibrillation s/p ablation with watchman
- Continue metoprolol, amioadarone
- does not seem to be on DOAC, DAPT on the medicines post discharge from [facility]
- [employer] pacemaker placed in 2002, changed in 2020, and is NOT MRI compatible
# acute hypoxic respiratory failure -- resolved
- overnight, desat to 87%
- trial BIPAP but now on room air
- no crackles on my exam, lower extremity edema appears improved
# Right lower extremity calf tenderness
- hx of DVT
- ultrasound did not show DVT
# Anemia
- Hgb 8.9 from 10.0 yesterday
- LDH came in elevated, unclear if points toward possible hemolysis or acute phase reactant from stress of ACS
- on heparin
- Plt from 224 to 197
# CKD stage 3b
- Creatinine baseline is ~1.5 per collateral.
- eGFR is calculated 39
- monitor BMP
# Hyponatremia
- Na+ 132
- no fluid for now given HF exacerbation
- also received lasix
- monitor BMP
# Diabetes mellitus - type 2
- sliding scale insulin - moderate resistance
- at home, takes dulaglutide
- Hemoglobin A1c 8.1%; however, given age of 89, this may be considered a reasonable target (7.5-8.5% for A1c).
- hold trulicity
# HTN - continue metoprolol
# HLD - continue atorvastatin
# COPD - continue mometasone-formeoterol, fluticasone
DVT ppx: Heparin drip
Disposition: pending medical improvement
Code status: DNR
Anticipated Discharge: 24 - 48 hours
Subjective/Interval History
-
Date of Service: December 21, 2024
feels good
xfer to telemetry last night
Objective Data
-
Labs:
Laboratory Results
12/21/24
03:45
WBC 7.3
Hgb 9.1 L
Hct 26.6 L
Plt Count 198
APTT 84.2 H
Sodium 132 L
Potassium 4.0
Chloride 97 L
Carbon Dioxide 28
BUN 44 H
Creatinine 1.7 H
Glucose 142 H
Calcium 9.4
Vital Signs:
Vital Signs
Temp Pulse Resp BP Pulse Ox
98.2 F 71 15 134/50 99
12/21/24 04:46 12/21/24 04:46 12/21/24 04:46 12/21/24 04:46 12/21/24 04:46
I&O
12/20/24 12/21/24 12/22/24
06:59 06:59 06:59
Intake Total 310.4 / 318.4 1100.8 / 1100.8
Output Total 1220 / 1220 250 / 250
Balance -909.6 / -901.6 850.8 / 850.8
+850 ccs
but down 2 kgs from last weight measurement
Physical Exam
-
Cardiac: Other (down 2kg from yesterday)
[2024-12-21] MEDS: PROTONIX 20 MG PO (08:18)
[2024-12-21] MEDS: PLAVIX 75 MG PO (08:18)
[2024-12-21] MEDS: VIBRAMYCIN 100 MG PO ×2 (08:18→19:32)
[2024-12-21] MEDS: LOW STRENGTH ASPIRIN 81 MG PO (08:19)
[2024-12-21] MEDS: PACERONE 200 MG PO (08:22)
[2024-12-21] MEDS: TOPROL XL 50 MG PO (08:22)
[2024-12-21] MEDS: HEPARIN 25000 UNITS/250 ML IV (08:23)
[2024-12-21] MEDS: SYMBICORT 160/4.5 MCG INHALER 2 PUFF INH ×2 (08:23→19:56)
[2024-12-21] MEDS: DETROL 2 MG PO ×2 (08:23→19:32)
[2024-12-21] MEDS: IMDUR (EXTENDED RELEASE) 30 MG PO (08:38)
[2024-12-21] MEDS: NOVOLOG FLEXPEN-MODERATE RESISTANCE SC (08:50)
[2024-12-21] MEDS: LASIX IV (08:50)
--- NOTE | 2024-12-21 09:53 | TRANSFER ---
Addendum entered by Ana Alvarez 12/21/24 09:55:
hep gtt running at 800 units/hr.
Original Note:
report given to Dr. Hodges on floor before pt transferred to entry level lab technician. VSS, pt AAOx3. plan of care ongoing.
--- NOTE | 2024-12-21 11:45 | PTCARENOTE ---
Pt received from shift lab technician s/p [facility]. AAOx3. A-paced on tele, HRs 60s. SpO2 95% on room air. VSS. R groin dressing CDI, no hematoma noted. Hemostasis achieved at 1113 via manual pressure. Pt educated about bedrest and activity restrictions. RLE
neurovascular checks WDL. Assessment documented. Pt resting in bed, call carreno in reach.
[2024-12-21 12:01] LABS: Glucose - Point of Care 182 mg/dl (70-99)
[2024-12-21] MEDS: NOVOLOG FLEXPEN-MODERATE RESISTANCE 1 UNITS SC (12:02)
--- NOTE | 2024-12-21 12:19 | ITS.CL.CATH ---
Hot Metal Charger - Catheterization
Cardiac Catheterization
Procedure Report:
RIGHT AND LEFT HEART CATHETERIZATION
Date of Procedure: December 21, 2024
Primary Care Physician: Dr. Chelsi Schroeder
Primary Extruder Tender: Dr. Maynor Avery
Procedures performed:
1: Coronary angiography
2: Right heart catheterization
INDICATION: The patient is an 89-year-old woman with a complex past medical history including severe known two-vessel CAD with CABIN MAN of the right and circumflex by cardiac catheterization in March of last year, chronic renal insufficiency,
persistent atrial fibrillation status post ablation in the past, status post pacemaker placement for sick sinus syndrome, peripheral arterial disease and hyperlipidemia who presents with decompensated heart failure and low-level positive troponins.
Echocardiography shows a new drop in LV function. After some discussion with her family we have elected to repeat cardiac catheterization.
ACCESS: The patient was prepped and draped in usual sterile fashion. A 6 Zimbabwean sheath was placed in the right common femoral artery using the Seldinger over the wire technique. Ultrasound guidance and a micropuncture kit was employed. A 6
Zimbabwean sheath was then placed in the right common femoral vein using the same technique.
HEMODYNAMIC FINDINGS (mmHg):
RA(a,v,m): 15, 12, 11
RV(s/d,EDP): 57/9, 15
PA(s/d/m): 57/21, 37
PCWP(a,v,m): 25, 39, 27
LV(s/d,EDP): Valve not crossed
Ao(s/d,m): 126/49, 78
Oxygen Saturations (mg/dl):
PA: 62% on room air
LV: 96% on room air
Cardiac Output/Index (l/min / l/min/m2):
Estimated Jeri Method: 3.3/2.2
VALVE HEMODYNAMICS:
No significant aortic or mitral valve stenosis.
ANGIOGRAPHIC FINDINGS:
Single-plane Left Ventriculography in MILES Projection: Not done with elevated creatinine.
Coronary Angiography:
Left Main: Medium caliber, widely patent.
Left Anterior Descending: The left anterior descending artery is heavily calcified in the midportion. The LAD itself appears widely patent with no clear evidence of flow-limiting disease and ANDREY-3 distal flow. There may be a smooth 50% calcified
lesion proximally although this is difficult to assess angiographically due to vascular overlapping calcification. There is a medium caliber high first diagonal branch which has a long 70 to 80% ostial/proximal stenosis with ANDREY-3 distal flow.
The second diagonal branch has a ostial 70% smooth stenosis with preserved ANDREY-3 flow into relatively large distal branches. The distal LAD is widely patent. There are 3 relatively large septal branches providing collaterals to the right coronary
artery.
Left Circumflex: The left circumflex artery is a medium caliber nondominant system that gives rise to 2 medium caliber distal OM's that fills via left to left apical collaterals. The proximal circumflex has a proximal short segment chronic total
occlusion with faint bridging collaterals noted. This vessel is also heavily calcified as with the AV groove.
Right Coronary: Flush proximal total occlusion. Heavily calcified. Very faint collaterals from the conus right to right are noted. The distal dominant vessel fills via [id number] collaterals mostly via LAD septal collaterals.
Fluoroscopy Time (min): 3.0
Radiation Dose (mGy): 59
DAP (Gy.cm2): 5.4
Closure device: None. The femoral vein groin sheath was pulled with manual pressure for hemostasis. The femoral arterial sheath was pulled and hemostasis achieved with manual pressure and a closure patch without acute complication.
Complications: None.
ASSESSMENT:
1: Severe two-vessel coronary artery disease with chronic total occlusion of both the right and left circumflex arteries as described above. The LAD is widely patent and appears angiographically unchanged from prior angiography in March 2024.
2: Elevated pulmonary pressures with high wedge pressure.
3: 14 cc of iodinated contrast utilized during the procedure.
CONCLUSIONS and RECOMMENDATIONS:
1: Continue IV diuresis and medical therapy for a ischemic cardiomyopathy. Given no recent ACS we will treat with aspirin 81 mg alone. Watch off of DOAC despite high [id number]. If has more persistent recurrent atrial fibrillation we will need
to consider DOAC.
Ashutosh Hodges M.D.
Copy to: Dr. Chelsi Schroeder
--- NOTE | 2024-12-21 12:53 | W.PN.CARDCBS ---
Addendum entered and electronically signed by Dina Brown DO 12/21/24 21:32:
I saw and examined the patient.
The Fire Pilot's note was reviewed and I agree with the note.
Comment: Patient was seen and examined prior to cardiac catheterization with Dr. Lee Hodges. Prior to procedure patient denies chest pain or pressures or worsening shortness of breath. PT at bedside with patient. Cardiac catheterization has
since been reviewed.
GEN: No distress, awake, alert, oriented x3
HEENT: mmm
LUNGS: CTA B/L, no wheezes/rales
CV: Reg, S1/S2, 1/6 murmur
ABD: soft, BS+, NT/ND
EXT: No edema
Plan:
89-year-old female presented with chest discomfort and peak troponin 1.5 currently chest pain-free.
-Cardiac catheterization today with Dr. Hodges reviewed showing stable coronary anatomy with no interventions performed. Plan is for medical therapy.
-Continue aspirin and Plavix.
-Continue atorvastatin with goal LDL 55-60 mg/dL. LDL 61 on Lipitor Thursday/ Thursday /Thursday.
-Continue metoprolol succinate 50 mg daily, Imdur 30 mg daily.
-Goal normotension
-Goal normoglycemia, suboptimal hemoglobin A1c 8.1%.
-Could consider addition of SGLT2 inhibitor
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
- Continue IV Lasix
- Left heart catheterization today with stable multivessel coronary disease with no intervention performed
- Goal-directed medical therapy limited by renal insufficiency. Could consider addition of SGLT2 inhibitor after further diuresis. Consideration as an outpatient for trial of arvind/arb/arni.
Chronic kidney disease with baseline creatinine 1.5.
-Monitor renal function with diuresis and dye exposure status post cath
Patient has history of paroxysmal atrial fibrillation status post PVI in 2011 as well as sick sinus syndrome status post pacemaker
-Device interrogation 12/18/2024 with 75% A-paced, 2.2% V paced. AT/AF burden 4.7%.
-Continue amiodarone
-Check TSH
-Not currently on oral anticoagulation- Will review with Drs. Hodges/Bennie. [id number] score 9-would favor starting NOAC/Plavix with close monitoring of hemoglobin
Diabetes mellitus type 2, hemoglobin A1c 8.1%
- Consider consulting diabetic nurse practitioner.
- Would discontinue outpatient pioglitazone given heart failure
Original Note:
Today's Communication / Plan
-
Stable CAD by cath, medical management
Evidence of continued volume overload. Continue IV Lasix 40 mg twice daily
Follow creatinine
Follow hemoglobin
Impression / Plan
-
Tile Power Shear Operator: Dr. Avery
Impression:
Chest discomfort
NSTEMI
Acute heart failure with reduced EF
CM, EF 35% by echo 12/19/24
CAD with known CUFF KNITTER of circ, RCA and residual diag, LAD disease, medically managed
Atrial fibrillation paroxysmal
Status post PVI 2011 (Dr. Cassidy)
Permanent pacemaker [employer] last generator change 2020 (Dr. Hodges)
Hyperlipidemia
Diabetes mellitus
Peripheral vascular
CKD 4
Hyponatremia
Echo 12/19/2024: EF 30-35%, which is new compared to 2023, mild to moderate MR, aortic sclerosis with mild AI, pulmonary artery systolic pressure is 54 mmHg, pacing wire seen, left atrium mildly dilated
Cardiac catheterization March 2024: Normal left main, calcified LAD 50% smooth proximal LAD, 70 to 80% stenosis in ostial D1 70% D2 proximal CUFF KNITTER of circumflex: RCA with proximal total occlusion and faint collaterals from conus and more so from
LAD, LVEDP was 25
Plan:
-she presented with chest discomfort after recent admission to [facility] for afib and CHF.
-trop peaked at 1.5
-she remains chest pain free
-s/p cardiac catheterization today with stable coronary anatomy, no interventions performed, continue medical management. was noted to have continued evidence of volume overload, will continue IV lasix 40mg BID. was on torsemide 10mg daily prior to
admission. weight trending down from admission if accurate. Cr stable at 1.7
-groin site stable
-echo with EF 30-35% 12/19, appears to be new reduction. continue toprol. not candidate for arvind/arb/arni/aldactone given CKD.
-she remains in SR on review of tele. continue amiodarone
-hgb stable at 9.1. continue asa, plavix
-LDL 61. on lipitor 40mg MWF
-procal elevated at 0.6. defer treatment to primary service
-Discussed with interventional cards
Progress Note - Tile Power Shear Operator
Subjective
Date of Service: December 21, 2024
no CP, SOB
Objective
Labs:
12/21/24 03:45
12/21/24 03:45
Labs
Hgb 9.1 g/dL (12.0-16.0) L 12/21/24 03:45
Hct 26.6 % (37.0-47.0) L 12/21/24 03:45
Plt Count 198 10^3/uL (130-400) 12/21/24 03:45
PT 15.5 Sec (11.4-14.6) H 12/18/24 15:40
INR 1.20 12/18/24 15:40
APTT 84.2 Sec (23.4-35.0) H 12/21/24 03:45
Sodium 132 mmol/L (135-145) L 12/21/24 03:45
Potassium 4.0 mmol/L (3.5-5.1) 12/21/24 03:45
BUN 44 mg/dl (7-17) H 12/21/24 03:45
Creatinine 1.7 mg/dL (0.6-1.0) H 12/21/24 03:45
Glucose 142 mg/dl (70-99) H 12/21/24 03:45
Troponins
12/18/24 12/18/24 12/18/24
14:39 15:40 22:28
Troponin I 1.350 H* 1.250 H* 1.510 H*
12/19/24 12/20/24
04:49 03:30
Troponin I 1.280 H* 0.822 H*
Vital Signs and I&O:
Vital Signs
Temp Pulse Resp BP Pulse Ox
97.8 F 63 16 120/50 98
12/21/24 11:43 12/21/24 12:15 12/21/24 12:15 12/21/24 12:15 12/21/24 12:15
Vital Signs
Temp Pulse Resp BP Pulse Ox
97.8 F 63 16 120/50 98
12/21/24 11:43 12/21/24 12:15 12/21/24 12:15 12/21/24 12:15 12/21/24 12:15
Intake & Output
12/19/24 12/20/24 12/21/24 12/22/24
07:59 07:59 07:59 07:59
Intake Total 57 / 184 311.4 / 320.2 1092.8 / 1092.8
Output Total 1220 / 1320 250 / 250
Balance 57 / 184 -908.6 / -999.8 842.8 / 842.8
Physical Exam
Physical Exam
GEN: No distress, awake, alert, oriented x3
HEENT: supple, anicteric, mmm, eomi
LUNGS: CTA B/L, no wheezes/rales
CV: Reg, S1/S2, 1/6 murmur
ABD: soft, BS+, NT/ND
EXT: No cyanosis, clubbing, edema
NEURO: Gross non-focal
SKIN: Warm, pink, dry. No rash. groin site soft, c/d/i
[2024-12-21] MEDS: LASIX 40 MG IV (16:10)
[2024-12-21] MEDS: STERILE WATER FOR INJECTION 10 ML IV (16:10)
[2024-12-21] MEDS: ROCEPHIN 1000 MG IV (16:10)
--- NOTE | 2024-12-21 16:35 | CM ---
Chart reviewed. Patient independent of ADLS, lives in a in law suite to her granddaughters house, 1 STH, 2 EDMUND, ambulates with a SPC and RW. PT evaluation recommending Home PT. Referral sent to [facility]. Plan is for the patient to return
home with [facility]. CM to follow
[2024-12-21 17:28] LABS: Glucose - Point of Care 233 mg/dl (70-99)
[2024-12-21] MEDS: LIPITOR 40 MG PO (17:28)
[2024-12-21] MEDS: NOVOLOG FLEXPEN-MODERATE RESISTANCE 3 UNITS SC (17:28)
[2024-12-21 18:46] LABS: Glucose - Point of Care 220 mg/dl (70-99)
--- NOTE | 2024-12-21 20:18 | PTCARENOTE ---
Rec'd pt at change of shift. VSS, Apaced on tele monitor, and AAO*3. Pt denies any pain or discomfort. R femoral site with dressing CDI, site soft, and non tender. Pt resting with call carreno in reach. See MAR and flowchart for full pt care and
assessment.
[2024-12-21 22:03] LABS: Glucose - Point of Care 169 mg/dl (70-99)
[2024-12-21] MEDS: XALATAN OPHTHALMIC SOLUTION 1 DROP BOTH EYES (22:09)
[2024-12-21] MEDS: SENOKOT-S 1 TABLET PO (22:12)
[2024-12-21] MEDS: DULCOLAX 10 MG RECTAL (22:42)
[2024-12-21] MEDS: TYLENOL 650 MG PO (22:42)
[2024-12-21] MEDS: MYLICON 80 MG PO (23:26)
--- NOTE | 2024-12-21 23:45 | PTCARENOTE ---
2200- Pt used call carreno to report abdominal pressure rating pressure as a 7/10. BP 99/82 and 116/44 manual. VALDO Chamorro notified via tiger text. 99% on room air and 2L applied for comfort.
2230- VALDO Chamorro at bedside and assessed pt at bedside. Pt reported pain at 5/10 at this time. Senokot, Tylenol, and Dulcolax suppository given. Initiated by RN without complication. Instructed to relax and report to RN with need to have a bowel
movement via call carreno.
2320- Pt assisted into BR to urinate with staff assistance. Pt reported complete releif from pressure at this time.
2330- Rec'd order for simethicone one time and given as ordered.
[2024-12-22 03:14] VITALS: BP 129/55
[2024-12-22 04:13] LABS: Hematocrit 25.9 % (37.0-47.0); Hemoglobin 8.7 g/dL (12.0-16.0); Mean Corp Hgb Conc. 33.6 g/dL (33.0-37.0); Mean Corpuscular Volume 95.2 fL (81.0-99.0); Platelet Count 190 10^3/uL (130-400); Red Cell Dist. Width 14.2 % (11.5-14.5)
[2024-12-22 04:15] LABS: APTT 28.9 Sec (23.4-35.0)
[2024-12-22 04:28] LABS: Blood Urea Nitrogen 38 mg/dl (7-17); Calcium 9.6 mg/dl (8.4-10.2); Carbon Dioxide 26 mmol/L (22-30); Chloride 98 mmol/L (98-107); Estimated Creatinine Clearance 16 ml/min; Glucose 170 mg/dl (70-99); Potassium 4.2 mmol/L (3.5-5.1); Sodium 131 mmol/L (135-145); eGFR 26.77
[2024-12-22 06:00] VITALS: BMI 22.6
[2024-12-22 07:06] VITALS: BP 131/54
--- NOTE | 2024-12-22 07:07 | W.PN.HOSP.TC ---
Addendum entered and electronically signed by Best Morris MD 12/22/24 21:02:
Attending Addendum-
I saw and evaluated the patient. I reviewed the resident�s note and agree with findings and plan as documented in the resident�s note. Sub: complains of abdominal discomfort 'not chest pain' Chronic CLARK. Denies fevers chills. Full 12 point ROS
reviewed and negative except as documented Exam: Vitals reviewed in chart GEN-NAD heart RRR no MRG lungs rhonchi at b/l bases abd soft LE +1 LE edema b/l right groin bandaged no bruits auscultated DP pulses intact
Plan:
#NSTEMI - ACS
-Troponin peaked
-cont Aspirin/metoprolol/atorvastatin
-DC'd plavix,hep gtt, and nitro gtt -> imdur add hydral
-Cardiology input appreciated
-echo . Top normal left ventricular size, global hypokinesis with mid and apical septal akinesis, EF 30-35%
2. Mitral annular calcification, thickened leaflets, mild to moderate mitral regurgitation and dilated left atrium.
-previous EF @ 54%
-cath Severe two-vessel coronary artery disease with chronic total occlusion of both the right and left circumflex arteries as described above. The LAD is widely patent and appears angiographically unchanged from prior
angiography in March 2024.
2 Elevated pulmonary pressures with high wedge pressure. -start SGLT2i on DC, hold off on ellis due to RACHEL, start MRA as OP
-transfer to tele
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
-cont IV lasix BID for now - transition to torsemide 20mg PO daily in am
-strict I and O daily weights fluid restrict
-Cardiology input appreciated
-echo as above EF 30-35% reduced from previous
-GDMT- cont toprol XL, MRA as OP, unable to start ELLIS/ARB due to renal failure, start dapag-priced out
#Acute Hypoxemic Respiratory Failure
- weaned off bipap and supplemental 02
# CAP
- b/l PNA
- cont ceftriaxone and doxycycline #3/5
#Paroxysmal A-fib status post ablation/PPM
-Rate controlled
-Continue metoprolol and amiodarone
-Patient not on anticoagulation t/c as OP
#Normocytic anemia-monitor CBC
# Hyponatremia
- hypervolemic likely
- trend,cont IV lasix BID transition to torsemide 20mg from 10 mg daily on DC
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
-worsening
-monitor post cath
-avoid NT agents
#DM
-Insulin sliding scale
-Hemoglobin A1c-8.1
-DC pioglitazone
-on Trulicity (GLP1)- restart as OP
# HLD
Continue atorvastatin
# COPD
Patient was former smoker.
Continue home inhalers
No sign of acute exacerbation
CODE STATUS: Full code->DNR
DVT prophylaxis: Heparin drip
Dispo DC in am to home- refusing SNF
Time spent coordinating care, review of plan of care with resident, personally reviewed records in EMR, med rec, consults, notes, labs, radiology, d/w nursing � 52 mins
Original Note:
Today's Communication/Plan
-
- per cardiology, continue IV diuresis
- monitor I/Os, daily weights
- monitor BMP
- continue aspirin, atorvastatin, metoprolol succinate, amiodarone
- continue ceftriaxone, doxycycline
- discontinue clopidogrel
Assessment / Plan
Assessment / Plan
In summary this is an 89 yo F who presented with chest pain, and workup revealed NSTEMI
# NSTEMI
- Troponin 1.350 --> 1.250
- EKG in ER: ST depression lateral leads
- she's on aspirin, clopidogrel, metoprolol, heparin drip
- per cardiology, now on isosorbide mononitrate for pain relief/symptom relief
- cath yesterday showed 'Severe two-vessel coronary artery disease with chronic total occlusion of both the right and left circumflex arteries as described above. The LAD is widely patent and appears angiographically unchanged from prior
angiography in March 2024.'
- continue aspirin, atorvastatin
- cardiology recommends d/c clopidogrel
- continue metoprolol succinate 50mg daily
- continue imdur 30mg daily
# HFpEF --> HFrEF
# Acute on chronic exacerbation of HF
- likely triggered by NSTEMI/ACS
- she had acute on chronic exacerbation last week 12/11-12/16) at [facility]
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
- echo this admission was LVEF 30-35%, ie reduced EF
- f/u cardiology recommendations regarding lasix
- f/u case management regarding SGLT2i as part of GDMT
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
- Creatinine baseline is ~1.5 per collateral.
- Cr now at 1.8 from 1.5 on admission
- can be attributed to diuresis and/or contrast dye from catheterization
- f/u cardiology reccs
- monitor BMP
# community acquired pneumonia
- infiltrates possibly visible on CXR compared to prior
- likely CAP because of timecourse
- elevated procalcitonin may be c/w infectious process
- ceftriaxone and doxycycline for bacterial coverage for CAP (today is day #3, 5 day course)
# Paroxysmal atrial fibrillation s/p ablation
- Continue metoprolol succinate, amioadarone
- Device interrogation 12/18/2024 with 75% A-paced, 2.2% V paced. AT/AF burden 4.7%.
- [employer] pacemaker placed in 2002, changed in 2020, and is NOT MRI compatible
- spoke with her cardiology office in [place], she did NOT undergo watchman
- per cardiology, check TSH
# Hyponatremia
- Na+ 131
- no fluid for now given HF exacerbation
- also received lasix
- monitor BMP
# Diabetes mellitus - type 2
- sliding scale insulin - moderate resistance
- at home, takes dulaglutide
- Hemoglobin A1c 8.1%; however, given age of 89, this may be considered a reasonable target (7.5-8.5% for A1c).
- hold dulaglutide inpatient
- discontinue pioglitazone due to HFrEF
- SGLT2i may be started to address HFrEF and T2DM
# acute hypoxic respiratory failure -- resolved
- overnight, desat to 87%
- trial BIPAP but now on room air
- no crackles on my exam, lower extremity edema appears improved
# Right lower extremity calf tenderness
- hx of DVT
- ultrasound did not show DVT
# Anemia
- Hgb at 8.7
# HTN - continue metoprolol
# HLD - continue atorvastatin
# COPD - continue mometasone-formeoterol, fluticasone
DVT ppx: Heparin drip
Disposition: pending medical improvement
Code status: DNR
Anticipated Discharge: 24 - 48 hours
Subjective/Interval History
-
Date of Service: December 22, 2024
reported some on/off epigastric discomfort, but not as severe as when she first presented
overall, feels okay
Objective Data
-
Labs:
Laboratory Results
12/22/24
03:35
WBC 7.2
Hgb 8.7 L
Hct 25.9 L
Plt Count 190
APTT 28.9
Sodium 131 L
Potassium 4.2
Chloride 98
Carbon Dioxide 26
BUN 38 H
Creatinine 1.8 H
Glucose 170 H
Calcium 9.6
WBC 7.2 from 7.3
Na+ 131 from 132
Cr to 1.8 from initially 1.5
Vital Signs:
Vital Signs
Temp Pulse Resp BP Pulse Ox
98.1 F 65 16 129/55 97
12/22/24 06:56 12/22/24 03:14 12/22/24 06:56 12/22/24 03:14 12/22/24 06:56
afebrile
I&O
12/21/24 12/22/24 12/23/24
06:59 06:59 06:59
Intake Total 1100.8 / 1100.8 720 / 720
Output Total 250 / 250 250 / 250
Balance 850.8 / 850.8 470 / 470
Review of Systems
-
History Source: Patient
Constitutional: Reports No Symptoms
Respiratory: Reports No Symptoms
Cardiac: Reports Other (on/off chest pressure near epigastric)
Abdomen/GI: Reports No Symptoms
Musculoskeletal: Reports No Symptoms
Neuro: Reports No Symptoms
Physical Exam
-
General: No Apparent Distress
HEENT: Normocephalic and Atraumatic
Respiratory: Clear to Auscultation
Cardiac: Other (no murmurs on my exam; down 2kg from admission weight; up 2kg from yesterday)
GI: Soft and Nontender
Musculoskeletal: Other (trace peripheral edema, R > L as consistent with prior)
Skin: Warm and Dry
Neuro: Awake and Alert
Psych: Calm
[2024-12-22] MEDS: IMDUR (EXTENDED RELEASE) 30 MG PO (07:12)
[2024-12-22] MEDS: VIBRAMYCIN 100 MG PO ×2 (07:12→21:29)
[2024-12-22] MEDS: TOPROL XL 50 MG PO (07:12)
[2024-12-22] MEDS: PACERONE 200 MG PO (07:13)
[2024-12-22] MEDS: LASIX 40 MG IV ×2 (07:13→15:02)
[2024-12-22] MEDS: LOW STRENGTH ASPIRIN 81 MG PO (07:13)
[2024-12-22] MEDS: PLAVIX 75 MG PO (07:13)
[2024-12-22] MEDS: ZOFRAN 4 MG IV ×2 (07:13→15:02)
[2024-12-22] MEDS: PROTONIX 20 MG PO (07:21)
[2024-12-22] MEDS: DETROL 2 MG PO ×2 (07:21→21:33)
[2024-12-22] MEDS: SYMBICORT 160/4.5 MCG INHALER 2 PUFF INH ×2 (07:33→20:17)
[2024-12-22 08:11] LABS: Glucose - Point of Care 178 mg/dl (70-99)
--- NOTE | 2024-12-22 08:16 | PTCARENOTE ---
Assumed care of pt from night custodian RN. AAOx3. Apaced/NSR on tele, HRs 60s. VSS. R femoral dressing CDI. Site remains soft and non tender. RLE neurovascular checks WDL. Pt assisted OOB to chair, call carreno in reach. Assessment documented.
[2024-12-22] MEDS: NOVOLOG FLEXPEN-MODERATE RESISTANCE 1 UNITS SC ×2 (09:31→17:09)
[2024-12-22] MEDS: SENOKOT-S 1 TABLET PO (09:33)
--- NOTE | 2024-12-22 09:36 | W.PN.CARDCBS ---
Addendum entered and electronically signed by Per Cheng MD 12/22/24 12:40:
I saw and examined the patient.
The Resident Manager's note was reviewed and I agree with the note.
Comment: Briefly, 89-year-old woman past medical history of coronary artery disease initially presented with chest discomfort to [facility] and was admitted for acute heart failure and atrial fibrillation. Subsequently transferred to
[place] for coronary angiography which identified stable coronary disease. Echo here shows newly reduced left ventricular systolic function with EF of 30 to 35%.
Per interventional cardiology plan is for aspirin only going forward. If patient has high burden of A-fib can consider DOAC at that time.
Continue high intensity statin with metoprolol and Imdur as antianginals
Filling pressures were elevated based on invasive hemodynamics therefore would continue IV Lasix and follow daily weights and renal function
Unfortunately blood pressure and renal function makes additional GDMT challenging
Continue metoprolol
Chronically on Imdur, plan to add low-dose hydralazine for afterload reduction and monitor blood pressure
Rest per Michelle Henry
Original Note:
Today's Communication / Plan
-
Continue aspirin 81mg daily
Continue Toprol, Imdur
Consider addition of hydralazine as BP allows
Diuresing with IV lasix, follow renal function closely.
Impression / Plan
-
Fighting Vehicle Infantryman: Dr. Avery
Impression:
Presented with chest discomfort
NSTEMI
Acute HFrEF
CM, EF 35% by echo 12/19/24
CAD
SWITCHBOARD TROUBLESHOOTER of circ, RCA and residual diag, LAD disease, stable by cath 12/21/2024, medically managed
Paroxysmal atrial fibrillation
s/p PVI 2011 (Dr. Cassidy)
[employer]bel PPM, last generator change 2020 (Dr. Hodges)
Hyperlipidemia
Diabetes mellitus
PVD
CKD 4
Hyponatremia
Cardiac catheterization March 2024: Normal left main, calcified LAD 50% smooth proximal LAD, 70 to 80% stenosis in ostial D1 70% D2 proximal SWITCHBOARD TROUBLESHOOTER of circumflex: RCA with proximal total occlusion and faint collaterals from conus and more so from
LAD, LVEDP was 25
[facility] 12/21/2024: Severe two-vessel coronary artery disease with chronic total occlusion of both the right and left circumflex arteries as described above. The LAD is widely patent and appears angiographically unchanged from prior angiography in
March 2024. Elevated pulmonary pressures with high wedge pressure.
Echo 12/19/2024: EF 30-35%, which is new compared to 2023, mild to moderate MR, aortic sclerosis with mild AI, pulmonary artery systolic pressure is 54 mmHg, pacing wire seen, left atrium mildly dilated
Plan:
-Presented with chest discomfort. Recently admitted to [facility] for A-fib and heart failure. Troponin this admission peaked at 1.5.
-Underwent C 12/21/2024 which revealed stable coronary disease compared to cath in 03/2024. Plan is to continue medical management.
-Remains chest pain-free. Did have abdominal pressure overnight, improved this AM.
-Has been on aspirin and Plavix this admission, but plan is to de-escalate to aspirin 81 mg daily alone following cardiac catheterization per Dr. Hodges.
-Remains in SR on review of telemetry. Continue Toprol and amiodarone. Heart rates are stable.
-Despite high [id number] score with A-fib noted on device check, plan is to maintain off of DOAC. If more persistent recurrent atrial fibrillation noted, would consider starting at that time. Hgb 8.7.
-Diuresing with IV Lasix 40 mg twice daily. Weight up 3 pounds overnight if accurate. Creatinine up slightly to 1.8.
-Echo 12/19 with EF newly reduced at 30 to 35%. Continues on Toprol alone. Not candidate for ELLIS/ARB/ARNI/Aldactone due to CKD
-Continues on Imdur. Could consider addition of hydralazine as BP allows. Did have some hypotension overnight.
-LDL 61 on lipitor 40mg MWF
Progress Note - Fighting Vehicle Infantryman
Subjective
Date of Service: December 22, 2024
Chest pain free. Did have some abdominal pressure overnight. Improved this AM.
Objective
Labs:
12/22/24 03:35
12/22/24 03:35
Labs
Hgb 8.7 g/dL (12.0-16.0) L 12/22/24 03:35
Hct 25.9 % (37.0-47.0) L 12/22/24 03:35
Plt Count 190 10^3/uL (130-400) 12/22/24 03:35
PT 15.5 Sec (11.4-14.6) H 12/18/24 15:40
INR 1.20 12/18/24 15:40
APTT 28.9 Sec (23.4-35.0) 12/22/24 03:35
Sodium 131 mmol/L (135-145) L 12/22/24 03:35
Potassium 4.2 mmol/L (3.5-5.1) 12/22/24 03:35
BUN 38 mg/dl (7-17) H 12/22/24 03:35
Creatinine 1.8 mg/dL (0.6-1.0) H 12/22/24 03:35
Glucose 170 mg/dl (70-99) H 12/22/24 03:35
Troponins
12/20/24
03:30
Troponin I 0.822 H*
Vital Signs and I&O:
Vital Signs
Temp Pulse Resp BP Pulse Ox
98.1 F 62 16 131/54 97
12/22/24 06:56 12/22/24 07:42 12/22/24 07:42 12/22/24 07:12 12/22/24 07:42
Vital Signs
Temp Pulse Resp BP Pulse Ox
98.1 F 62 16 131/54 97
12/22/24 06:56 12/22/24 07:42 12/22/24 07:42 12/22/24 07:12 12/22/24 07:42
Intake & Output
12/20/24 12/21/24 12/22/24 12/23/24
06:59 06:59 06:59 06:59
Intake Total 310.4 / 318.4 1100.8 / 1100.8 720 / 720
Output Total 1220 / 1220 250 / 250 250 / 250
Balance -909.6 / -901.6 850.8 / 850.8 470 / 470
Physical Exam
Physical Exam
GEN: No distress, awake, alert, oriented x3
HEENT: supple, anicteric, mmm
LUNGS: Few scattered wheezes
CV: Reg, S1/S2, 1/6 murmur
EXT: No cyanosis, clubbing, edema
NEURO: Gross non-focal
SKIN: Warm, pink, dry. No rash.
--- NOTE | 2024-12-22 10:49 | CM ---
Chart reviewed. Patient is independent of ADLS, lives with her granddaughter in a in law suite, 1 STH, 2 EDMUND, ambulates with a SPC and RW. [facility] to [facility]. Plan is for the patient to return home with [facility]. CM to follow
[2024-12-22 11:32] VITALS: BP 104/68
[2024-12-22 11:36] LABS: Glucose - Point of Care 259 mg/dl (70-99)
[2024-12-22] MEDS: APRESOLINE 10 MG PO (12:02)
[2024-12-22] MEDS: NOVOLOG FLEXPEN-MODERATE RESISTANCE 5 UNITS SC (12:02)
--- NOTE | 2024-12-22 14:26 | CM ---
Pricing on Farxiga through the patient's [employer] [facility] PP ID# [id number], is $81 for a 30 day supply
Jardiance is $85 for a 30 day supply.
Patient is agreeable to cost. I placed a free 30 day coupon in the patients red discharge folder.
[2024-12-22] MEDS: STERILE WATER FOR INJECTION 10 ML IV (15:02)
[2024-12-22] MEDS: ROCEPHIN 1000 MG IV (15:02)
[2024-12-22] MEDS: CLARITIN 10 MG PO (16:02)
[2024-12-22 17:06] LABS: Glucose - Point of Care 184 mg/dl (70-99)
[2024-12-22] MEDS: FARXIGA 10 MG PO (17:09)
[2024-12-22 19:45] VITALS: BP 105/61
[2024-12-22] MEDS: APRESOLINE PO (21:29)
[2024-12-22] MEDS: VIBRAMYCIN PO (21:31)
[2024-12-22 21:43] LABS: Glucose - Point of Care 167 mg/dl (70-99)
[2024-12-22] MEDS: XALATAN OPHTHALMIC SOLUTION 1 DROP BOTH EYES (22:18)
[2024-12-22 23:00] VITALS: BP 118/58
[2024-12-23] MEDS: ZOFRAN 4 MG IV (00:50)
[2024-12-23 02:56] VITALS: BP 123/44
[2024-12-23 06:00] VITALS: BMI 22.0
--- NOTE | 2024-12-23 07:07 | W.PN.HOSP.TC ---
Addendum entered and electronically signed by Best Morris MD 12/23/24 21:23:
Attending Addendum-
I saw and evaluated the patient. I reviewed the resident�s note and agree with findings and plan as documented in the resident�s note. Sub: Feels greatly improved but concerned about not having large BM. Has had small bms. No abd pain NV. Chronic
CLARK. Denies fevers chills. Full 12 point ROS reviewed and negative except as documented Exam: Vitals reviewed in chart GEN-NAD heart RRR no MRG lungs fine crackles at bases abd soft LE +1 LE edema b/l right groin bandaged no bruits auscultated DP
pulses intact
Plan:
#NSTEMI - ACS
-Troponin peaked
-cont Aspirin/metoprolol/atorvastatin
-DC'd plavix-per cards,hep gtt, and nitro gtt -> cont new imdur and hydral
-Cardiology input appreciated
-echo . Top normal left ventricular size, global hypokinesis with mid and apical septal akinesis, EF 30-35%
2. Mitral annular calcification, thickened leaflets, mild to moderate mitral regurgitation and dilated left atrium.
-previous EF @ 54%
-cath 12/21- Severe two-vessel coronary artery disease with chronic total occlusion of both the right and left circumflex arteries as described above. The LAD is widely patent and appears angiographically unchanged from prior
angiography in March 2024.
2 Elevated pulmonary pressures with high wedge pressure. -start SGLT2i on DC, hold off on ellis due to RACHEL, start MRA as OP
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
-cont IV lasix BID for now - transition to torsemide 20mg PO daily on DC
-strict I and O daily weights fluid restrict
-Cardiology input appreciated
-echo as above EF 30-35% reduced from previous
-GDMT- cont toprol XL, MRA as OP, unable to start ELLIS/ARB due to renal failure, started dapag- 12/22
#Acute Hypoxemic Respiratory Failure
- weaned off bipap and supplemental 02
# CAP
- b/l PNA
- cont ceftriaxone and doxycycline #4/5->transtion to PO
#Paroxysmal A-fib status post ablation/PPM
-Rate controlled
-Continue metoprolol and amiodarone
-Patient not on anticoagulation t/c as OP vs wtachman-currently refusing
#Normocytic anemia-monitor CBC
# Hyponatremia
- resolved
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
-stable likely new baseline
-SGLT2i- started
-avoid NT agents
#DM
-Insulin sliding scale
-Hemoglobin A1c-8.1
-DC pioglitazone
-on Trulicity (GLP1)- restart as OP , started SGLT2i
# HLD
Continue atorvastatin
# COPD
Patient was former smoker.
Continue home inhalers
No sign of acute exacerbation
# Constipation - enema x 1 prior to DC
CODE STATUS: Full code->DNR
DVT prophylaxis: Heparin drip
Dispo DC home with VN
Time spent coordinating care, DC planning, review of DC plan of care with resident, transition of care, review of records, med rec/scripts sent electronically, consults, notes, d/w consultants, nursing, family, cardiology and CM� 35 mins >50% of
this time was devoted to counseling and coordination of care
Original Note:
Today's Communication/Plan
-
- IV furosemide -> torsemide PO
- hydralazine 10mg PO started
- ceftriaxone, doxycycline day 4/5
- continue aspirin, atorvastatin, metoprolol succinate, imdur, SGLT2i, amiodarone
- consider loratidine 1x/daily prn
Assessment / Plan
Assessment / Plan
In summary this is an 89 yo F who presented with chest pain, and workup revealed NSTEMI
# NSTEMI
- Troponin 1.350 --> 1.250
- EKG in ER: ST depression lateral leads
- she's on aspirin, clopidogrel, metoprolol, heparin drip
- per cardiology, now on isosorbide mononitrate for pain relief/symptom relief
- cath on 12/21 showed 'Severe two-vessel coronary artery disease with chronic total occlusion of both the right and left circumflex arteries as described above. The LAD is widely patent and appears angiographically unchanged from prior angiography
in March 2024.'
- continue aspirin, atorvastatin
- continue metoprolol succinate 50mg daily
- continue imdur 30mg daily
# HFpEF --> HFrEF
# Acute on chronic exacerbation of HF
- likely triggered by NSTEMI/ACS
- she had acute on chronic exacerbation last week 12/11-12/16) at [facility]
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
- echo this admission was LVEF 30-35%, ie reduced EF
- torsemide 20mg PO
- hydralazine 10mg PO bid
- started SGLT2i 12/22
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
- Creatinine baseline is ~1.5 per collateral.
- Cr still at 1.8 from 1.5 on admission
- can be attributed to diuresis and/or contrast dye from catheterization
- f/u cardiology reccs: torsemide 20mg PO
- started SGLT2i 12/22
- monitor BMP
# community acquired pneumonia
- infiltrates possibly visible on CXR compared to prior
- likely CAP because of timecourse
- elevated procalcitonin may be c/w infectious process
- ceftriaxone and doxycycline for bacterial coverage for CAP (today is day #4, 5 day course)
# Paroxysmal atrial fibrillation s/p ablation
- Continue metoprolol succinate, amioadarone
- Device interrogation 12/18/2024 with 75% A-paced, 2.2% V paced. AT/AF burden 4.7%.
- [employer] pacemaker placed in 2002, changed in 2020, and is NOT MRI compatible
- spoke with her cardiology office in [place], she did NOT undergo watchman
- TSH within normal limits
# Hyponatremia
- Na+ 136, normalized
- monitor BMP
# Diabetes mellitus - type 2
- sliding scale insulin - moderate resistance
- at home, takes dulaglutide
- Hemoglobin A1c 8.1%; however, given age of 89, this may be considered a reasonable target (7.5-8.5% for A1c).
- hold dulaglutide inpatient
- discontinue pioglitazone due to HFrEF
- SGLT2i has been started, should address HFrEF and T2DM
# Nausea/post-nasal drip
- loratidine 10mg PO prn daily at home
- restart that at home dose?
# acute hypoxic respiratory failure -- resolved
- overnight, desat to 87%
- trial BIPAP but now on room air
- no crackles on my exam, lower extremity edema appears improved
# Right lower extremity calf tenderness
- hx of DVT
- ultrasound did not show DVT
# Anemia
- Hgb at 8.9 today
# HTN - continue metoprolol
# HLD - continue atorvastatin
# COPD - continue mometasone-formeoterol
Disposition: to home
Code status: DNR
Anticipated Discharge: Within 24 hours
Subjective/Interval History
-
Date of Service: December 23, 2024
feels good this morning. said she feels a little constipated.
feels that her allergies are leading to postnasald rip --> some nausea
Objective Data
-
Labs:
Laboratory Results
12/23/24
07:04
WBC Pending
Hgb Pending
Hct Pending
Plt Count Pending
Sodium Pending
Potassium Pending
Chloride Pending
Carbon Dioxide Pending
BUN Pending
Creatinine Pending
Glucose Pending
Calcium Pending
WBC 6.9 from 7.2
Hgb 8.9 stable from 8.7
Cr 1.8 from 1.8
Na 136
K 4.0
TSH 3.39
Abdominal x-ray
Significantly limited radiographic examination secondary to multiple wires and an external device overlying the abdomen and pelvis. Within these limitations, moderate volume colonic stool possibly secondary to constipation. No disproportionally
dilated loops of small bowel or air-fluid levels. Left hip hemiarthroplasty. Moderate thoracolumbar dextroscoliosis.
Vital Signs:
Vital Signs
Temp Pulse Resp BP Pulse Ox
97.9 F 68 18 123/44 97
12/23/24 02:56 12/23/24 02:56 12/23/24 02:56 12/23/24 02:56 12/23/24 02:56
I&O
12/22/24 12/23/24 12/24/24
06:59 06:59 06:59
Intake Total 720 / 720 720 / 720
Output Total 250 / 250 550 / 550
Balance 470 / 470 170 / 170
weight is 52.7 kg from 54.2 (down 1.5 kg)
I/Os document 550 voids but other reported urine outputs also in chart
Review of Systems
-
History Source: Patient
Constitutional: Reports No Symptoms
EENT: Reports No Symptoms Reported
Respiratory: Reports No Symptoms
Cardiac: Reports No Symptoms
Abdomen/GI: Reports Nausea
Physical Exam
-
General: No Apparent Distress
HEENT: Normocephalic and Atraumatic
Respiratory: Clear to Auscultation
Cardiac: Other (no murmurs on my exam, pedal pulses intact b/l, groin bandage present )
GI: Soft and Nontender
Musculoskeletal: Other (trace peripheral edema, R > L as consistent with prior)
Skin: Warm and Dry
Neuro: Awake and Alert
Psych: Calm
[2024-12-23 07:58] LABS: Hematocrit 26.7 % (37.0-47.0); Hemoglobin 8.9 g/dL (12.0-16.0); Mean Corp Hgb Conc. 33.3 g/dL (33.0-37.0); Mean Corpuscular Volume 96.0 fL (81.0-99.0); Platelet Count 197 10^3/uL (130-400); Red Cell Dist. Width 14.3 % (11.5-14.5)
[2024-12-23 08:01] LABS: Glucose - Point of Care 146 mg/dl (70-99)
[2024-12-23] MEDS: SYMBICORT 160/4.5 MCG INHALER 2 PUFF INH (08:11)
[2024-12-23] MEDS: NOVOLOG FLEXPEN-MODERATE RESISTANCE SC (08:12)
[2024-12-23] MEDS: PROTONIX 20 MG PO (08:16)
[2024-12-23] MEDS: FARXIGA 10 MG PO (08:16)
[2024-12-23] MEDS: LOW STRENGTH ASPIRIN 81 MG PO (08:16)
[2024-12-23] MEDS: LASIX 40 MG IV (08:16)
[2024-12-23] MEDS: VIBRAMYCIN 100 MG PO (08:16)
[2024-12-23] MEDS: IMDUR (EXTENDED RELEASE) 30 MG PO (08:16)
[2024-12-23] MEDS: APRESOLINE 10 MG PO (08:18)
[2024-12-23] MEDS: TOPROL XL 50 MG PO (08:18)
[2024-12-23] MEDS: PACERONE 200 MG PO (08:18)
[2024-12-23 08:22] LABS: Blood Urea Nitrogen 35 mg/dl (7-17); Calcium 9.2 mg/dl (8.4-10.2); Carbon Dioxide 28 mmol/L (22-30); Chloride 98 mmol/L (98-107); Estimated Creatinine Clearance 16 ml/min; Glucose 126 mg/dl (70-99); Potassium 4.0 mmol/L (3.5-5.1); Sodium 136 mmol/L (135-145); eGFR 26.77
[2024-12-23 08:37] VITALS: BP 119/53
[2024-12-23] MEDS: DETROL 2 MG PO (09:03)
--- NOTE | 2024-12-23 09:11 | W.PN.CARDCBS ---
Today's Communication / Plan
-
Discharge planning
Transition from IV to oral diuretics
Will sign off, recall if needed
Impression / Plan
-
Bank Courier: Dr. Avery
Impression:
Presented with chest discomfort
NSTEMI
Acute HFrEF
CM, EF 35% by echo 12/19/24
CAD
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
Paroxysmal atrial fibrillation
s/p PVI 2011 (Dr. Cassidy)
[employer] Charbel PPM, last generator change 2020 (Dr. Hodges)
Hyperlipidemia
Diabetes mellitus
PVD
CKD 4
Hyponatremia
Cardiac catheterization March 2024: Normal left main, calcified LAD 50% smooth proximal LAD, 70 to 80% stenosis in ostial D1 70% D2 proximal FINANCE ASSISTANT of circumflex: RCA with proximal total occlusion and faint collaterals from conus and more so from
LAD, LVEDP was 25
[facility] 12/21/2024: Severe two-vessel coronary artery disease with chronic total occlusion of both the right and left circumflex arteries as described above. The LAD is widely patent and appears angiographically unchanged from prior angiography in
March 2024. Elevated pulmonary pressures with high wedge pressure.
Echo 12/19/2024: EF 30-35%, which is new compared to 2023, mild to moderate MR, aortic sclerosis with mild AI, pulmonary artery systolic pressure is 54 mmHg, pacing wire seen, left atrium mildly dilated
Plan:
89-year-old female presented with chest discomfort/NSTEMI and peak troponin 1.5 currently chest pain-free.
-Cardiac catheterization today with Dr. Hodges reviewed showing stable coronary anatomy: Severe two-vessel coronary artery disease with chronic total occlusion of both the right and left circumflex arteries as described above. The LAD is widely
patent and appears angiographically unchanged from prior angiography in March 2024. No intervention performed. Plan is for medical therapy.
-Discussed medical therapy with Dr. Hodges: He is recommended aspirin alone and to discontinue Plavix. This was also reviewed with patient and she is agreeable with plan.
-Continue atorvastatin with goal LDL 55-60 mg/dL. LDL 61 on Lipitor Thursday/ Thursday /Thursday.
-Continue metoprolol succinate 50 mg daily, Imdur 30 mg daily.
-Goal normotension
-Goal normoglycemia, suboptimal hemoglobin A1c 8.1%.
-Farxiga 10 mg once daily added
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
- Volume status appears improved following IV Lasix
- Transition to outpatient torsemide but at increased dose 20 mg
- Goal-directed medical therapy limited by renal insufficiency: Continue metoprolol succinate, Imdur, and new hydralazine. Resume torsemide. Farxiga added this admission.
- Blood pressures mostly normal with some low blood pressures in the evening
Chronic kidney disease with baseline creatinine 1.5.
-Creatinine slightly increased post cath, stable at 1.8.
- Would repeat basic metabolic profile as an outpatient in 5 to 7 days
Patient has history of paroxysmal atrial fibrillation status post PVI in 2011 as well as sick sinus syndrome status post pacemaker
-Device interrogation 12/18/2024 with 75% A-paced, 2.2% V paced. AT/AF burden 4.7%.
-Continue amiodarone and metoprolol
- TSH within normal limit
- Not currently on oral anticoagulation; [id number] score 9. Reviewed anticoagulation recommendations with Dr. Hodges and discussed stroke risk and stroke risk prevention/risk benefits of anticoagulation with patient at bedside. Per
recommendations of Dr. Hodges, will not start oral anticoagulation. Patient is agreeable to this plan. However, we will continue to discussed risk/benefit of NOAC as an outpatient. Consider outpatient discussion of watchman.
Diabetes mellitus type 2, hemoglobin A1c 8.1%
- Consider consulting diabetic nurse practitioner.
- Would discontinue outpatient pioglitazone given heart failure
Chronic anemia, hemoglobin mid 8-9 g/dL
-Recommend outpatient evaluation with close monitoring of hemoglobin
PT evaluation reviewed recommending home PT
Outpatient cardiac follow-up to be arranged with Dr. Avery
Discharge planning
Progress Note - Bank Courier
Subjective
Date of Service: December 23, 2024
Patient seen and examined in bed. No chest pain or pressure. No shortness of breath. No lower extremity edema.
Objective
Labs:
12/23/24 07:04
12/23/24 07:04
Labs
Hgb 8.9 g/dL (12.0-16.0) L 12/23/24 07:04
Hct 26.7 % (37.0-47.0) L 12/23/24 07:04
Plt Count 197 10^3/uL (130-400) 12/23/24 07:04
PT 15.5 Sec (11.4-14.6) H 12/18/24 15:40
INR 1.20 12/18/24 15:40
APTT 28.9 Sec (23.4-35.0) 12/22/24 03:35
Sodium 136 mmol/L (135-145) 12/23/24 07:04
Potassium 4.0 mmol/L (3.5-5.1) 12/23/24 07:04
BUN 35 mg/dl (7-17) H 12/23/24 07:04
Creatinine 1.8 mg/dL (0.6-1.0) H 12/23/24 07:04
Glucose 126 mg/dl (70-99) H 12/23/24 07:04
Vital Signs and I&O:
Vital Signs
Temp Pulse Resp BP Pulse Ox
97.8 F 65 17 119/53 92
12/23/24 08:37 12/23/24 08:37 12/23/24 08:37 12/23/24 08:37 12/23/24 08:37
Vital Signs
Temp Pulse Resp BP Pulse Ox
97.8 F 65 17 119/53 92
12/23/24 08:37 12/23/24 08:37 12/23/24 08:37 12/23/24 08:37 12/23/24 08:37
Intake & Output
12/21/24 12/22/24 12/23/24 12/24/24
06:59 06:59 06:59 06:59
Intake Total 1100.8 / 1100.8 720 / 720 720 / 720
Output Total 250 / 250 250 / 250 550 / 550
Balance 850.8 / 850.8 470 / 470 170 / 170
Physical Exam
Physical Exam
GEN: No distress, awake, alert, oriented x3
HEENT: mmm
LUNGS: CTA B/L, no wheezes/rales
CV: Reg, S1/S2, 1/6 murmur
ABD: soft, BS+, NT/ND. right radial site ok
EXT: No edema
[2024-12-23 11:46] VITALS: BP 126/51
[2024-12-23 11:58] LABS: Glucose - Point of Care 202 mg/dl (70-99)
[2024-12-23 12:05] VITALS: BP 123/50; PULSE 61; O2SAT 99
[2024-12-23] MEDS: NOVOLOG FLEXPEN-MODERATE RESISTANCE 3 UNITS SC (12:53)
--- NOTE | 2024-12-23 14:44 | CM ---
Addendum entered by Radha Gomez 12/23/24 14:53:
per hospitalist patient will discharge today
Spoke with Denise at [facility] & updated
PLAN; Home with [facility] fax #: [phone]
daughter to transport
Original Note:
Patient seen at bedside
IMM explained & signed. In chart
PT rec home health
referral in [facility]-accepted
LM with Denise at [place] [phone]
coupon given to patient Mary
PLAN; Home with [facility] fax #: [phone]
daughter to transport
[2024-12-23] MEDS: DULCOLAX 10 MG RECTAL (15:20)
[2024-12-23] MEDS: SENOKOT-S 1 TABLET PO (15:20)
[2024-12-23] MEDS: ROCEPHIN 1000 MG IV (15:21)
[2024-12-23] MEDS: STERILE WATER FOR INJECTION 10 ML IV (15:21)
[2024-12-23 15:44] VITALS: BP 124/41
--- NOTE | 2024-12-23 16:10 | W.DCSUMMARY ---
Addendum entered and electronically signed by Best Morris MD 12/23/24 21:25:
Read, reviewed, and agree. See same day progress note for additional details.
Rick Morris MD
Original Note:
Documented by User: Jonathan Butcher MD, Resident 12/23/24 17:49
Discharge Summary
Discharge Data
Date of Admission: 12/18/24
Date of Discharge: 12/23/24
-
Pending Results: No
Hospital Course
Discharging Physician : Best Morris MD; Jonathan Btucher MD
Disposition : Home with Home PT
Primary care physician : Chelsi Schroeder
Principal Discharge diagnosis : NSTEMI s/p cardiac catheterization
Chronic Discharge diagnosis : Arrthythmia (remote hx A-fib s/p ablation), CHF, COPD, HTN, Hypercholesterolemia and Other (DM, osteoporosis); Cholecystectomy and Other (PARTIAL HYSTERCTOMY CATARACTS PACEMAKER PLACEMENT 2002 GALLBLADDER REMOVED
PACEMAKER GENERATOR CHANGE 01/2011 Right Hip Replacement)
Hospital Course :
89 yo F p/w chest discomfort and found to have NSTEMI. During the admission, the following problems were addressed
# NSTEMI
- Troponin 1.350 --> 1.250
- EKG in ER: ST depression lateral leads
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 The LAD is widely patent and appears angiographically unchanged
from prior angiography in March 2024.'
- In consultation with cardiology the following recommendations were made
- continue aspirin, atorvastatin, metoprolol succinate, imdur
- discontinue clopidogrel
# HFpEF --> HFrEF
# Acute on chronic exacerbation of HF
- likely triggered by NSTEMI/ACS
- she had acute on chronic exacerbation during (12/11-12/16) at [facility]
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
- echocardiogram this admission was LVEF 30-35%, ie reduced EF
- Her home torsemide was increased to 20mg daily
- She was started on farxiga 10mg daily
# Acute hypoxic respiratory failure -- resolved
- She experienced a desaturation earlier during the course of the admission that required a trial of BIPAP
- CXR revealed flash pulmonary edema in setting of systolic dysfunction
- She received IV furosemide and was eventually weaned off BIPAP and on room air
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
- Creatinine baseline is ~1.5 per collateral.
- Cr now at 1.8 from 1.5 on admission
- Cr is stable at 1.8 on day of discharge
- Obtain BMP lab test upon discharge and follow-up with PCP
# Community acquired pneumonia
- infiltrates possibly visible on CXR compared to prior concerning for CAP
- elevated procalcitonin may be c/w infectious process
- ceftriaxone and doxycycline for bacterial coverage for CAP (5 day total course, sent PO pills for 1 day)
# Paroxysmal atrial fibrillation s/p ablation
- Device interrogation 12/18/2024 with 75% A-paced, 2.2% V paced. AT/AF burden 4.7%.
- [employer] pacemaker placed in 2002, changed in 2020, and is NOT MRI compatible
- TSH was within normal limits
- Continue metoprolol succinate, amioadarone
# Constipation
- near the end of her admission, she experienced some constipation
- enema were performed and she was counseled to establish a bowel regimen using OTC materials upon discharge
# Hyponatremia - resolved
- She was hyponatremic to 131 during the admission; however, on day of discharge, Na+ normalized to 136
# Diabetes mellitus - type 2
- 8.1% may be an appropriate target given her age (89 yo)
- discontinue pioglitazone due to HFrEF
- Farxiga started to address HFrEF and T2DM
# Right lower extremity calf tenderness
- hx of DVT
- ultrasound did not show DVT
# Anemia
- Hgb at 8.7
# chronic issues per below
# HTN, HLD, COPD - continue home medications
Important imaging findings :
12/18/2024 Peripheral Vascular Ultrasound
IMPRESSION: No evidence of deep venous thrombosis of the lower extremities bilaterally.
Small predominantly simple appearing left popliteal/Chen's cyst.
Relative slightly echogenic nodular area within the soft tissues of the left groin measuring 1.7 x 0.5 x 0.9 cm most likely representing a lymph node, less likely a small lipoma.
12/18/2024 CXR
IMPRESSION:
Pulmonary vascularity borderline prominent, cannot exclude mild CHF/acute pulmonary edema.
12/18/2024 CXR
IMPRESSION:
Bilateral pulmonary opacities for which considerations include pneumonia or pulmonary edema.
12/19/2024 CXR
IMPRESSION:
Improving pulmonary edema.
12/20/2024 CXR
IMPRESSION:
Tiny bilateral pleural effusions. Improved on the left. Stable on the right.
Mild cardiomegaly. Stable.
Medial left lower lobe consolidation. Progressed. Atelectasis versus pneumonia.
Stable mild right infrahilar patchy airspace disease concerning for pneumonia.
12/22/2024 Abdominal x-ray
FINDINGS/IMPRESSION:
Significantly limited radiographic examination secondary to multiple wires and an external device overlying the abdomen and pelvis. Within these limitations, moderate volume colonic stool possibly secondary to constipation. No disproportionally
dilated loops of small bowel or air-fluid levels. Left hip hemiarthroplasty. Moderate thoracolumbar dextroscoliosis.
Procedure findings :
12/18/2024 EKG 14:27
Atrial-paced rhythm
ST and T WAVE ABNORMALITY, CONSIDER INFEROLATERAL ISCHEMIA
ABNORMAL ECG
WHEN COMPARED WITH ECG OF 20-Feb-2012 08:34,
NO SIGNIFICANT CHANGE WAS FOUND
12/18/2024 EKG 14:34
NORMAL SINUS RHYTHM
ST and T WAVE ABNORMALITY, CONSIDER INFERIOR ISCHEMIA
ST and T WAVE ABNORMALITY, CONSIDER ANTEROLATERAL ISCHEMIA
ABNORMAL ECG
WHEN COMPARED WITH ECG OF 18-Dec-2024 14:44,
SINUS RHYTHM HAS REPLACED ELECTRONIC ATRIAL PACEMAKER
T WAVE INVERSION MORE EVIDENT IN INFERIOR LEADS
12/18/2024 EKG 20:07
NORMAL SINUS RHYTHM
ST and T WAVE ABNORMALITY, CONSIDER INFEROLATERAL ISCHEMIA
ABNORMAL ECG
WHEN COMPARED WITH ECG OF 18-Dec-2024 15:54,
NO SIGNIFICANT CHANGE WAS FOUND
12/18/2024 EKG 20:54
NORMAL SINUS RHYTHM
ST and T WAVE ABNORMALITY, CONSIDER INFEROLATERAL ISCHEMIA
ABNORMAL ECG
WHEN COMPARED WITH ECG OF 18-Dec-2024 20:12,
NO SIGNIFICANT CHANGE WAS FOUND
12/19/2024 EKG 00:00
NORMAL SINUS RHYTHM
Poor R-wave progression ; consider anterior infarct, lead placement, or normal
variant
ST and T WAVE ABNORMALITY, CONSIDER INFEROLATERAL ISCHEMIA
ABNORMAL ECG
WHEN COMPARED WITH ECG OF 19-Dec-2024 08:57,
NO SIGNIFICANT CHANGE WAS FOUND
12/19/2024 EKG 06:00
NORMAL SINUS RHYTHM
LOW VOLTAGE QRS
LEFT POSTERIOR FASCICULAR BLOCK
ST and T WAVE ABNORMALITY, CONSIDER ANTEROLATERAL ISCHEMIA
NON-SPECIFIC INTRA-VENTRICULAR CONDUCTION DELAY
ABNORMAL ECG
12/19/2024 Echocardiogram
SUMMARY
1. Top normal left ventricular size, global hypokinesis with mid and apical septal akinesis, EF 30-35% by visual estimate and Daniel's method.
2. Mitral annular calcification, thickened leaflets, mild to moderate mitral regurgitation and dilated left atrium.
3. Sclerosis with mild aortic regurgitation.
4. Normal right heart, pacing wire seen, pulmonary artery systolic pressure is 54 mmHg.
5. No prior studies available for comparison.
12/19/2024 EKG 08:46
NORMAL SINUS RHYTHM
ANTERIOR INFARCT , AGE UNDETERMINED
ST and T WAVE ABNORMALITY, CONSIDER INFEROLATERAL ISCHEMIA
QTcB >= 480 msec
ABNORMAL ECG
12/20/2024 EKG 06:00
NORMAL SINUS RHYTHM
ANTEROLATERAL T WAVE INVERSION
PROLONGED QT
ABNORMAL ECG
WHEN COMPARED WITH ECG OF 19-Dec-2024 17:56,
NO SIGNIFICANT CHANGE WAS FOUND
12/21/2024 EKG 06:00
NORMAL SINUS RHYTHM
MINIMAL VOLTAGE CRITERIA FOR LVH, MAY BE NORMAL VARIANT ( [place] product )
ST and MARKED T WAVE ABNORMALITY CONSIDER ANTEROLATERAL ISCHEMIA
PROLONGED QT
ABNORMAL ECG
WHEN COMPARED WITH ECG OF 20-Dec-2024 05:51,
NO SIGNIFICANT CHANGE WAS FOUND
12/21/2024 Cardiac catheterization
Coronary Angiography:
Left Main: Medium caliber, widely patent.
Left Anterior Descending: The left anterior descending artery is heavily calcified in the midportion. The LAD itself appears widely patent with no clear evidence of flow-limiting disease and ANDREY-3 distal flow. There may be a smooth 50% calcified
lesion proximally although this is difficult to assess angiographically due to vascular overlapping calcification. There is a medium caliber high first diagonal branch which has a long 70 to 80% ostial/proximal stenosis with ANDREY-3 distal flow.
The second diagonal branch has a ostial 70% smooth stenosis with preserved ANDREY-3 flow into relatively large distal branches. The distal LAD is widely patent. There are 3 relatively large septal branches providing collaterals to the right coronary
artery.
Left Circumflex: The left circumflex artery is a medium caliber nondominant system that gives rise to 2 medium caliber distal OM's that fills via left to left apical collaterals. The proximal circumflex has a proximal short segment chronic total
occlusion with faint bridging collaterals noted. This vessel is also heavily calcified as with the AV groove.
Right Coronary: Flush proximal total occlusion. Heavily calcified. Very faint collaterals from the conus right to right are noted. The distal dominant vessel fills via [id number] collaterals mostly via LAD septal collaterals.
Discharge Plan
-
Patient Disposition: Home (Routine Discharge)
Discharge Diagnosis/Procedures: NSTEMI now s/p Cardiac catheterization
Condition: Fair
Diet: Diabetic, Carb Controlled
Activity: As tolerated
Driving Restrictions: As prior to admission
Bathing Restrictions: None
Other Services: PT and OT
Stand Alone Forms: DC Instructions- Cath/EP Lab
Referrals:
[facility] [Outside]
Chelsi Schroeder MD [Family Provider] - in less than 1 week
Maynor Avery DO [Affiliate, Cardiology] - in two to four weeks
Additional Discharge Medication Instructions: Within the next week, you should get a BMP lab blood test to check your serum Creatinine, and results are to be sent to your Primary care provider.
Please follow-up with your PCP in 1 week.
Please follow-up with your pocketed spring assembler in 1-2 weeks.
PLEASE READ THIS SECTION VERY CAREFULLY.
NEW MEDS:
Please take dapagliflozin 10mg daily
Please take hydralazine 10mg twice daily
Please take isosorbide mononitrate (imdur) 30mg daily
Please take torsemide 20mg daily [this is a dose INCREASE from your previous 10mg]
Please take cefdinir 300mg two pills per day for only 1 more day.
Please take doxycycline 100mg two pills per day for only 1 more day.
It is very important to CONTINUE THESE MEDS because they are for your HEART HEALTH and DIABETES:
Amiodarone 200mg daily
Aspirin 81mg daily
Atorvastatin 40mg daily
Metoprolol succinate 50mg daily
Trulicity subcutaneous
The medications below, you may CONTINUE:
Dulera daily
Flonase daily
Loratidine daily
Omeprazole daily
Ondansetron as needed
The Symbicort that you felt was working well is called budesonide-formoterol aerosol inhaler and the name is provided below. But, you should only take EITHER symbicort or dulera, not both. You may follow-up with your PCP regarding this.
PLEASE STOP THESE MEDS:
Clopidogrel 75mg
Pioglitazone 15mg
Torsemide 10mg (dose has been increased, see above)
BOWEL REGIMEN: you can use dulcolax, miralax or sennakot-S as needed (which can be found over the counter) or a combination thereof to facilitate bowel movements
Prescriptions:
New
doxycycline hyclate 100 mg Capsule
100 mg PO Q12 Qty: 2 0RF
cefdinir 300 mg capsule
600 mg PO DAILY Qty: 2 0RF
hydralazine 10 mg Tablet
10 mg PO BID Qty: 60 0RF
torsemide 20 mg Tablet
20 mg PO DAILY Qty: 30 0RF
isosorbide mononitrate 30 mg Tablet Extended Release 24 Hr
30 mg PO DAILY Qty: 30 0RF
dapagliflozin propanediol 10 mg Tablet
10 mg PO DAILY Qty: 30 0RF
budesonide-formoterol 160-4.5 mcg/actuation HFA aerosol inhaler
2 puff inhalation R BID Qty: 10.2 0RF
Continued
omeprazole magnesium [Prilosec OTC] 20 MG tablet,delayed release (DR/EC)
20 mg PO DAILY
atorvastatin 40 MG tablet
40 mg PO DAILY
tolterodine 2 MG tablet
2 mg PO BID
aspirin [Rayo Chewable Aspirin] 81 MG tablet,chewable
81 mg PO DAILY
Trulicity 0.75 MG/0.5 ML pen injector
0.75 mg SQ MO
latanoprost 0.005 % drops
1 drp BOTH EYES HS
amiodarone 200 mg tablet
200 mg PO DAILY
metoprolol succinate 50 mg tablet extended release 24 hr
50 mg PO DAILY
bisacodyl [Dulcolax (bisacodyl)] 5 mg Tablet,Delayed Release (Dr/Ec)
5 mg PO DAILYPRN PRN (Reason: constipation)
ondansetron 4 mg tablet,disintegrating
4 mg PO Q6HPRN PRN (Reason: nausea)
fluticasone propionate 50 mcg/actuation Blum,Suspension
1 spray INTRANASAL DAILYPRN PRN (Reason: allergies)
Dulera 200-5 mcg/actuation Hfa Aerosol Inhaler
1 puff INHALATION R DAILY
polyethylene glycol 3350 17 gram Powder In Packet
17 g PO DAILYPRN PRN (Reason: constipation)
loratadine [Claritin] 10 mg Tablet
10 mg PO DAILY PRN (Reason: allergies)
fluticasone propion-salmeterol 115-21 mcg/actuation Hfa Aerosol Inhaler
2 puff INHALATION BID
Discontinued
pioglitazone 15 mg tablet
15 mg PO DAILY
torsemide 10 mg tablet
10 mg PO DAILY
clopidogrel 75 mg tablet
75 mg PO DAILY
Discharge Orders:
Discharge Patient (As Directed); Ordered 12/23/24
Ordered By: Jonathan Butcher
Care Plan Goals
Care Plan Goals:
Problem: Readiness for enhanced knowledge related to diagnosis and treatment plan
Goal: Understand your diagnosis and treatment plan needs, including medications if applicable.
Instructions: Know your diagnosis, underlying causes and treatment plan options, including medications if applicable. Consult with your health care team to learn about your diagnosis and treatment plan, including medications if applicable.
Discharge Date and Time
Discharge Date/Time: 12/23/24 16:55
Print Language: VIETNAMESE

Documented by User: Best Morris MD 12/23/24 21:18
Discharge Summary
Discharge Data
Date of Admission: 12/18/24
Date of Discharge: 12/23/24
Discharge Plan
-
Patient Disposition: Home (Routine Discharge)
Discharge Diagnosis/Procedures: NSTEMI now s/p Cardiac catheterization
Condition: Fair
Diet: Diabetic, Carb Controlled
Activity: As tolerated
Driving Restrictions: As prior to admission
Bathing Restrictions: None
Other Services: PT and OT
Stand Alone Forms: DC Instructions- Cath/EP Lab
Referrals:
[facility] [Outside]
Chesli Schroeder MD [Family Provider] - in less than 1 week
Maynor Avery DO [Affiliate, Cardiology] - in two to four weeks
Additional Discharge Medication Instructions: Within the next week, you should get a BMP lab blood test to check your serum Creatinine, and results are to be sent to your Primary care provider.
Please follow-up with your PCP in 1 week.
Please follow-up with your pocketed spring assembler in 1-2 weeks.
PLEASE READ THIS SECTION VERY CAREFULLY.
NEW MEDS:
Please take dapagliflozin 10mg daily
Please take hydralazine 10mg twice daily
Please take isosorbide mononitrate (imdur) 30mg daily
Please take torsemide 20mg daily [this is a dose INCREASE from your previous 10mg]
Please take cefdinir 300mg two pills per day for only 1 more day.
Please take doxycycline 100mg two pills per day for only 1 more day.
It is very important to CONTINUE THESE MEDS because they are for your HEART HEALTH and DIABETES:
Amiodarone 200mg daily
Aspirin 81mg daily
Atorvastatin 40mg daily
Metoprolol succinate 50mg daily
Trulicity subcutaneous
The medications below, you may CONTINUE:
Dulera daily
Flonase daily
Loratidine daily
Omeprazole daily
Ondansetron as needed
The Symbicort that you felt was working well is called budesonide-formoterol aerosol inhaler and the name is provided below. But, you should only take EITHER symbicort or dulera, not both. You may follow-up with your PCP regarding this.
PLEASE STOP THESE MEDS:
Clopidogrel 75mg
Pioglitazone 15mg
Torsemide 10mg (dose has been increased, see above)
BOWEL REGIMEN: you can use dulcolax, miralax or sennakot-S as needed (which can be found over the counter) or a combination thereof to facilitate bowel movements
Prescriptions:
New
doxycycline hyclate 100 mg Capsule
100 mg PO Q12 Qty: 2 0RF
cefdinir 300 mg capsule
600 mg PO DAILY Qty: 2 0RF
hydralazine 10 mg Tablet
10 mg PO BID Qty: 60 0RF
torsemide 20 mg Tablet
20 mg PO DAILY Qty: 30 0RF
isosorbide mononitrate 30 mg Tablet Extended Release 24 Hr
30 mg PO DAILY Qty: 30 0RF
dapagliflozin propanediol 10 mg Tablet
10 mg PO DAILY Qty: 30 0RF
budesonide-formoterol 160-4.5 mcg/actuation HFA aerosol inhaler
2 puff inhalation R BID Qty: 10.2 0RF
Continued
omeprazole magnesium [Prilosec OTC] 20 MG tablet,delayed release (DR/EC)
20 mg PO DAILY
atorvastatin 40 MG tablet
40 mg PO DAILY
tolterodine 2 MG tablet
2 mg PO BID
aspirin [Rayo Chewable Aspirin] 81 MG tablet,chewable
81 mg PO DAILY
Trulicity 0.75 MG/0.5 ML pen injector
0.75 mg SQ MO
latanoprost 0.005 % drops
1 drp BOTH EYES HS
amiodarone 200 mg tablet
200 mg PO DAILY
metoprolol succinate 50 mg tablet extended release 24 hr
50 mg PO DAILY
bisacodyl [Dulcolax (bisacodyl)] 5 mg Tablet,Delayed Release (Dr/Ec)
5 mg PO DAILYPRN PRN (Reason: constipation)
ondansetron 4 mg tablet,disintegrating
4 mg PO Q6HPRN PRN (Reason: nausea)
fluticasone propionate 50 mcg/actuation Blum,Suspension
1 spray INTRANASAL DAILYPRN PRN (Reason: allergies)
Dulera 200-5 mcg/actuation Hfa Aerosol Inhaler
1 puff INHALATION R DAILY
polyethylene glycol 3350 17 gram Powder In Packet
17 g PO DAILYPRN PRN (Reason: constipation)
loratadine [Claritin] 10 mg Tablet
10 mg PO DAILY PRN (Reason: allergies)
fluticasone propion-salmeterol 115-21 mcg/actuation Hfa Aerosol Inhaler
2 puff INHALATION BID
Discontinued
pioglitazone 15 mg tablet
15 mg PO DAILY
torsemide 10 mg tablet
10 mg PO DAILY
clopidogrel 75 mg tablet
75 mg PO DAILY
Discharge Orders:
Discharge Patient (As Directed); Ordered 12/23/24
Ordered By: Jonathan Butcher
Care Plan Goals
Care Plan Goals:
Problem: Readiness for enhanced knowledge related to diagnosis and treatment plan
Goal: Understand your diagnosis and treatment plan needs, including medications if applicable.
Instructions: Know your diagnosis, underlying causes and treatment plan options, including medications if applicable. Consult with your health care team to learn about your diagnosis and treatment plan, including medications if applicable.
Discharge Date and Time
Discharge Date/Time: 12/23/24 16:55
Print Language: VIETNAMESE
== END 2024-12-23 16:55 | disposition home health service (06) | DRG 280 ==
LOC: 3 WEST ACU 17:01
PROVIDERS: Internal Medicine Cardiovascular Disease; Internal Medicine Interventional Cardiology; Nurse Practitioner; Nurse Practitioner Family; ADMITTING PHYSICIAN General Practice; ATTENDING PHYSICIAN Family Medicine; CONSULT PHYSICIAN Internal Medicine Cardiovascular Disease; EMERGENCY PHYSICIAN Student in an Organized Health Care Education/Training Program; FAMILY PHYSICIAN Family Medicine; OTHER PHYSICIAN Internal Medicine
PROC: 5A09357 Assistance with Respiratory Ventilation, Less than 24 Consecutive Hours, Continuous Positive Airway Pressure (ICD-10-PCS; 2024-12-18)
PROC: B2111ZZ Fluoroscopy of Multiple Coronary Arteries using Low Osmolar Contrast (ICD-10-PCS; 2024-12-21)
PROC: 4A023N8 Measurement of Cardiac Sampling and Pressure, Bilateral, Percutaneous Approach (ICD-10-PCS; 2024-12-21)
DX: I21.3 ST elevation (STEMI) myocardial infarction of unspecified site (principal); I50.23 Acute on chronic systolic (congestive) heart failure; J96.01 Acute respiratory failure with hypoxia; J18.9 Pneumonia, unspecified organism; E87.1 Hypo-osmolality and hyponatremia; I13.0 Hypertensive heart and chronic kidney disease with heart failure and stage 1 through stage 4 chronic kidney disease, or unspecified chronic kidney disease; N17.9 Acute kidney failure, unspecified; J44.0 Chronic obstructive pulmonary disease with (acute) lower respiratory infection; E11.51 Type 2 diabetes mellitus with diabetic peripheral angiopathy without gangrene; E78.00 Pure hypercholesterolemia, unspecified; N18.32 Chronic kidney disease, stage 3b; M81.0 Age-related osteoporosis without current pathological fracture; E87.5 Hyperkalemia; D64.9 Anemia, unspecified; I25.5 Ischemic cardiomyopathy; K59.00 Constipation, unspecified; I34.81 Nonrheumatic mitral (valve) annulus calcification; I34.0 Nonrheumatic mitral (valve) insufficiency; I25.10 Atherosclerotic heart disease of native coronary artery without angina pectoris; E11.22 Type 2 diabetes mellitus with diabetic chronic kidney disease; Z66 Do not resuscitate; Z60.2 Problems related to living alone; Z96.641 Presence of right artificial hip joint; Z95.0 Presence of cardiac pacemaker; Z79.84 Long term (current) use of oral hypoglycemic drugs; Z79.82 Long term (current) use of aspirin; Z79.85 Long-term (current) use of injectable non-insulin antidiabetic drugs; Z79.51 Long term (current) use of inhaled steroids; Z87.891 Personal history of nicotine dependence; Z90.49 Acquired absence of other specified parts of digestive tract; Z88.1 Allergy status to other antibiotic agents; Z88.2 Allergy status to sulfonamides; Z88.8 Allergy status to other drugs, medicaments and biological substances; Z86.718 Personal history of other venous thrombosis and embolism; Z82.49 Family history of ischemic heart disease and other diseases of the circulatory system; Z79.02 Long term (current) use of antithrombotics/antiplatelets
CPT/HCPCS: 36600; 71045; 71046; 74018; 80048; 80053; 80061; 82607; 82728; 82746; 82805; 82962; 83036; 83540; 83550; 83615; 83735; 83880; 84100; 84145; 84443; 84484; 85025; 85027; 85045; 85610; 85730; 93005; 93306; 93456; 93970; 94640; 94660; 96374; 96375; 96376; 97116; 97162; 97167; 97530; 99291; C1894; Q9967

== ENCOUNTER 2025-01-06 11:31 | Emergency (ER) | payer MEDICARE, OTHER, SELFPAY ==
[2025-01-06 11:50] VITALS: BP 99/77
[2025-01-06 12:05] LABS: Hematocrit 27.2 % (37.0-47.0); Hemoglobin 9.0 g/dL (12.0-16.0); Mean Corp Hgb Conc. 33.1 g/dL (33.0-37.0); Mean Corpuscular Volume 95.4 fL (81.0-99.0); Nucleated Red Blood Cells % 0 %; Platelet Count 252 10^3/uL (130-400); Red Cell Dist. Width 14.3 % (11.5-14.5)
[2025-01-06 12:30] LABS: ALT (SGPT) 19 U/L (0-35); AST (SGOT) 27 U/L (14-36); Albumin 4.0 g/dl (3.5-5.0); Alkaline Phosphatase 95 U/L (38-126); Blood Urea Nitrogen 33 mg/dl (7-17); Calcium 9.7 mg/dl (8.4-10.2); Carbon Dioxide 28 mmol/L (22-30); Chloride 102 mmol/L (98-107); Glucose 148 mg/dl (70-99); Lipase 78 U/L (23-300); Potassium 3.5 mmol/L (3.5-5.1); Sodium 136 mmol/L (135-145); Total Protein 6.6 g/dl (6.3-8.2); eGFR 26.77
--- NOTE | 2025-01-06 15:51 | ED.GENMED ---
Addendum entered and electronically signed by VALDO Mayberry 01/10/25 08:02:
Urinx cx Enterococcus Faecalis: GFRis 26.77 will d/c on amox 500 mg PO Q 12 hrs sent to pt's pharmacy. I spoke with pt at home, no fever/chills. no n/v still w/mild UTI s/s
Original Note:
History of Present Illness
<Ana Rivera PA-C - Last Filed: 01/06/25 23:33>
General
Chief Complaint: Urinary Symptoms
Source: patient, records and family
Exam Limitations: none
Time Seen by Provider: 01/06/25 15:35
History of Present Illness
History of Present Illness:
89yoF with history of coronary artery disease, CHF with EF of 30-35%, atrial fibrillation, hypertension, hyperlipidemia, CKD presenting with her daughter for evaluation of abdominal distention. Patient woke up this morning around 3 AM noticing that
her abdomen was very bloated and distended. She reports that she was coughing up phlegm earlier but denies vomiting. She was also having trouble urinating earlier today and was only urinating small amounts at that time. She was able to have a
more significant void while in the waiting room. She has chronic issues with constipation but was able to have a bowel movement both today and yesterday. She denies any abdominal pain, chest pain, fevers. Patient called her vegetable grower today
regarding her symptoms and she was advised to increase her torsemide dose from 10 mg daily to 20 mg daily. She does check her weights daily and her weight this morning was 118.8 pounds which is stable for her.
Patient was recently hospitalized from 12/18-12/23/24 for an NSTEMI and acute CHF exacerbation. 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 Her
coronary artery disease is being managed medically at this time.
Past History
<Ana Rivera PA-C - Last Filed: 01/06/25 23:33>
Past History
ED Past Medical History: Arrthythmia (remote hx A-fib s/p ablation), CHF, COPD, HTN, Hypercholesterolemia and Other (DM, osteoporosis)
ED Past Surgical History: Cholecystectomy and Other (PARTIAL HYSTERCTOMY CATARACTS PACEMAKER PLACEMENT 2002 GALLBLADDER REMOVED PACEMAKER GENERATOR CHANGE 01/2011 Right Hip Replacement)
Social History
Tobacco: Former smoker
Alcohol: None
Drug: None
Personal:
Living: with family
Employment: Retired
Family History
Family History: Other (non-contributory)
Phy Exam
<Ana Rivera PA-C - Last Filed: 01/06/25 23:33>
General Physical Exam
General Presentation: well appearing and no apparent distress
General Skin: warm and dry
General Habitus: elderly
General Mental: alert
ENT Exam
ENT Exam: normocephalic
Cardiovascular Exam
Cardiovascular Exam: regular rate/rhythm and no edema
Pulmonary Exam
Pulmonary Exam: lungs clear, no respiratory distress, no rales, no crackles, no rhonchi and no wheezing
Gastrointestinal Exam
Gastrointestinal Exam: soft and other (Abdomen mildly distended. No significant tenderness. No rebound or guarding.)
Neurological Exam
Neurological Exam: alert
[place] Coma Scale
Eye Opening: Spontaneous
Verbal Response: Oriented
Motor Response: Obeys Commands
GCS Total Score: 15
Skin Exam
Skin Exam: normal color and warm/dry
Psychiatric Exam
Psychiatric Exam: normal mood/affect
Course
<Ana Rivera PA-C - Last Filed: 01/06/25 23:33>
Orders/Labs/Results
Orders:
Orders
01/06/25 11:57
Complete Blood Count/With Diff Urgent
Comprehensive Metabolic Panel Urgent
Lipase Urgent
01/06/25 15:49
Bladder Scan- Treatment ONCE
Iohexol [Omnipaque] See Protocol PO NOW STA
CR Chest - 2 Views Urgent
Comment:
Reason For Exam: cough
01/06/25 15:50
CT Abd/pel (oral only)-DH Only Urgent
Comment:
Reason For Exam: abd distention
01/06/25 16:38
NT-proBNP Urgent
01/06/25 17:19
Urinalysis Reflex To Culture Urgent
Date Specimen was Collected: 01/06/25
Time Specimen was Collected: 16:00
Urine Microscopic Reflex Cult Urgent
Urine Culture Urgent
LACI Source: U
Specimen Description:
Date Specimen was Collected: 01/06/25
Time Specimen was Collected: 16:00
01/06/25 20:25
Enema- Treatment ONCE
Type: Milk of Molasses
01/06/25 20:30
Electrocardiogram (*1) Urgent
Reason for Study: Abdominal Pain
EKG- Treatment ONCE
01/06/25 22:10
Acetaminophen [Tylenol] 650 mg PO NOW STA
Abnormal Lab Results
01/06/25 01/06/25
11:57 17:19
RBC 2.85 L 10^6/uL
(4.20-5.40)
Hgb 9.0 L g/dL
(12.0-16.0)
Hct 27.2 L %
(37.0-47.0)
MCH 31.6 H pg
(27.0-31.0)
Absolute Lymphs (auto) 0.9 L 10^3/uL
(1.2-3.4)
Lymphocytes % 14.1 L %
(20.5-51.1)
Monocytes % 9.9 H %
(1.7-9.3)
BUN 33 H mg/dl
(7-17)
Creatinine 1.8 H mg/dL
(0.6-1.0)
Glucose 148 H mg/dl
(70-99)
Leukocyte Esterase Rfl 1+ A
(Negative)
Urine WBC (Reflex) 11-15 A /HPF
(0-5)
Urine Bacteria (Reflex) Few A
(Negative)
Urine Glucose 4+ A
(Negative)
Urine Albumin (Reflex) 1+ A
(Neg - Trace)
01/06/25 11:57
01/06/25 11:57
Vital Signs
Initial and Last Documented VS:
Initial Vital Signs
Temp Pulse Resp BP Pulse Ox
98.4 F 61 18 99/77 97
01/06/25 11:50 01/06/25 11:50 01/06/25 11:50 01/06/25 11:50 01/06/25 11:50
Last Documented Vital Signs
Temp Pulse Resp BP Pulse Ox
98.6 F 60 18 140/50 97
01/06/25 16:30 01/06/25 23:02 01/06/25 23:02 01/06/25 23:03 01/06/25 23:02
<Ash Knutson, DO - Last Filed: 01/06/25 22:50>
Orders/Labs/Results
Orders:
Orders
01/06/25 11:57
Complete Blood Count/With Diff Urgent
Comprehensive Metabolic Panel Urgent
Lipase Urgent
01/06/25 15:49
Bladder Scan- Treatment ONCE
Iohexol [Omnipaque] See Protocol PO NOW STA
CR Chest - 2 Views Urgent
Comment:
Reason For Exam: cough
01/06/25 15:50
CT Abd/pel (oral only)-DH Only Urgent
Comment:
Reason For Exam: abd distention
01/06/25 16:38
NT-proBNP Urgent
01/06/25 17:19
Urinalysis Reflex To Culture Urgent
Date Specimen was Collected: 01/06/25
Time Specimen was Collected: 16:00
Urine Microscopic Reflex Cult Urgent
Urine Culture Urgent
LACI Source: U
Specimen Description:
Date Specimen was Collected: 01/06/25
Time Specimen was Collected: 16:00
01/06/25 20:25
Enema- Treatment ONCE
Type: Milk of Molasses
01/06/25 20:30
Electrocardiogram (*1) Urgent
Reason for Study: Abdominal Pain
EKG- Treatment ONCE
01/06/25 22:10
Acetaminophen [Tylenol] 650 mg PO NOW STA
Abnormal Lab Results
01/06/25 01/06/25
11:57 17:19
RBC 2.85 L 10^6/uL
(4.20-5.40)
Hgb 9.0 L g/dL
(12.0-16.0)
Hct 27.2 L %
(37.0-47.0)
MCH 31.6 H pg
(27.0-31.0)
Absolute Lymphs (auto) 0.9 L 10^3/uL
(1.2-3.4)
Lymphocytes % 14.1 L %
(20.5-51.1)
Monocytes % 9.9 H %
(1.7-9.3)
BUN 33 H mg/dl
(7-17)
Creatinine 1.8 H mg/dL
(0.6-1.0)
Glucose 148 H mg/dl
(70-99)
Leukocyte Esterase Rfl 1+ A
(Negative)
Urine WBC (Reflex) 11-15 A /HPF
(0-5)
Urine Bacteria (Reflex) Few A
(Negative)
Urine Glucose 4+ A
(Negative)
Urine Albumin (Reflex) 1+ A
(Neg - Trace)
01/06/25 11:57
01/06/25 11:57
Vital Signs
Initial and Last Documented VS:
Initial Vital Signs
Temp Pulse Resp BP Pulse Ox
98.4 F 61 18 99/77 97
01/06/25 11:50 01/06/25 11:50 01/06/25 11:50 01/06/25 11:50 01/06/25 11:50
Last Documented Vital Signs
Temp Pulse Resp BP Pulse Ox
98.6 F 60 18 140/50 97
01/06/25 16:30 01/06/25 23:02 01/06/25 23:02 01/06/25 23:03 01/06/25 23:02
<Ana Rivera PA-C - Last Filed: 01/06/25 23:33>
MDM/Problems Addressed
Differential Diagnosis Includes:
89yoF here with abdominal bloating that began this morning. She was advised to increase her torsemide dose by her vegetable grower today. She denies weight gain and does not appear volume overloaded on exam. VSS. No significant abdominal tenderness on
exam and there are no signs of peritonitis. Differential diagnosis includes but is not limited to constipation, SBO, urinary retention, ascites
Initial ED plan: Basic labs obtained in triage. Creatinine 1.8 which is near baseline. Will check bladder scan, UA, CXR, and CT abdomen with PO contrast only due to CKD.
<Ana Rivera PA-C - Last Filed: 01/06/25 23:33>
*Pulse Oximetry
SaO2: 97
Oxygen Mode of Delivery: Room air
Patient hypoxic: no (97%)
*EKG
Interpreted by ED Provider?: Yes
EKG Intrepretation Date: 01/06/25
Heart Rate: 60
Rate: normal
Rhythm: av sequential
Greer: normal axis
Ischemia: non-specific ST changes (appears unchanged/slightly improved from EKG on 12/21/24)
*Critical Care Note
Total Time (30-74mins, 75-104mins- exclusive of procedures): Not Applicable
<Ana Rivera PA-C - Last Filed: 01/06/25 23:33>
Update Note
Update Note:
CXR shows no acute findings or evidence of pulmonary edema. CT abdomen reveals moderate fecal matter throughout colon as well as mild mesenteric panniculitis. No evidence of obstruction or ascites. Small bilateral effusions noted. Suspect her
abdominal distention is related to constipation. No clinical evidence of volume overload and patient is currently at her dry weight. EKG stable from prior. She was given a milk of molasses enema and had a very small soft bowel movement. No
indication for hospitalization at this time. She was advised to increase Miralax to BID dosing and if no improvement, take magnesium citrate. Advised close f/u with PCP and strict ED return precautions discussed. She was discharged in stable
condition.
ED Attending Note
<Ana Rivera PA-C - Last Filed: 01/06/25 23:33>
-
Portions of this chart may have been created with voice recognition software.� Occasional wrong word or��sound alike� substitutions may have occurred due to the inherent limitations of voice recognition software.
<Ash Knutson DO - Last Filed: 01/06/25 22:50>
ED Attending Note
Patient seen and examined by attending physician: Yes
I performed the substantive portion of visit, reviewed & personally made and approve the management plan that is documented in note by myself or SHAWANDA.: Yes
Discharge Plan
Departure
Patient Disposition: Home (Routine Discharge)
Date of Disposition: 01/06/25
Time of Disposition: 23:00
Patient with high blood pressure during this ER visit?: Yes
Discharge Problem:
Constipation, Abdominal bloating
Instructions: Constipation in adults - ED (DC)
Prescriptions:
No Action
omeprazole magnesium [Prilosec OTC] 20 MG tablet,delayed release (DR/EC)
20 mg PO DAILY
atorvastatin 40 MG tablet
40 mg PO DAILY
tolterodine 2 MG tablet
2 mg PO BID
aspirin [Rayo Chewable Aspirin] 81 MG tablet,chewable
81 mg PO DAILY
Trulicity 0.75 MG/0.5 ML pen injector
0.75 mg SQ MO
latanoprost 0.005 % drops
1 drp BOTH EYES HS
amiodarone 200 mg tablet
200 mg PO DAILY
metoprolol succinate 50 mg tablet extended release 24 hr
50 mg PO DAILY
bisacodyl [Dulcolax (bisacodyl)] 5 mg Tablet,Delayed Release (Dr/Ec)
5 mg PO DAILYPRN PRN (Reason: constipation)
ondansetron 4 mg tablet,disintegrating
4 mg PO Q6HPRN PRN (Reason: nausea)
fluticasone propionate 50 mcg/actuation [place],Suspension
1 spray INTRANASAL DAILYPRN PRN (Reason: allergies)
Dulera 200-5 mcg/actuation Hfa Aerosol Inhaler
1 puff INHALATION R DAILY
polyethylene glycol 3350 17 gram Powder In Packet
17 g PO DAILYPRN PRN (Reason: constipation)
loratadine [Claritin] 10 mg Tablet
10 mg PO DAILY PRN (Reason: allergies)
fluticasone propion-salmeterol 115-21 mcg/actuation Hfa Aerosol Inhaler
2 puff INHALATION BID
doxycycline hyclate 100 mg Capsule
100 mg PO Q12 Qty: 2 0RF
hydralazine 10 mg Tablet
10 mg PO BID Qty: 60 0RF
torsemide 20 mg Tablet
20 mg PO DAILY Qty: 30 0RF
isosorbide mononitrate 30 mg Tablet Extended Release 24 Hr
30 mg PO DAILY Qty: 30 0RF
dapagliflozin propanediol 10 mg Tablet
10 mg PO DAILY Qty: 30 0RF
budesonide-formoterol 160-4.5 mcg/actuation HFA aerosol inhaler
2 puff inhalation R BID Qty: 10.2 0RF
Referrals:
Chelsi Schroeder MD [Family Provider]
Activity Restrictions/Additional Instructions:
Increase Miralax to twice daily for the next few days. If no improvement, you may try magnesium citrate.
Please follow-up with your family doctor next week. Return to the ER with any new or worsening symptoms including chest pain, vomiting, or severe pain.
Interventions
Interventions:
*Risk Screen - Suicide Last Done: 01/06/25 11:50
*General Assessment Last Done: 01/06/25 16:30
*Neglect/Abuse Screening Last Done: 01/06/25 16:30
*ED- Fall Risk Assessment Last Done: 01/06/25 16:30
*ED COVID-19 Vaccine History Last Done: 01/06/25 16:30
*Nursing Disposition Last Done: 01/06/25 23:23
ED-Female Genitourinary Assessment Last Done: 01/06/25 16:30
Discharge Date and Time
Discharge Date/Time: 01/06/25 23:23
Print Language: KITTITIAN
[2025-01-06 16:30] VITALS: BP 145/52; BMI 49.2
[2025-01-06] MEDS: OMNIPAQUE 50 ML PO (16:46)
[2025-01-06 17:19] VITALS: BP 163/51
[2025-01-06 17:28] LABS: Urine Character Clear (Clear)
[2025-01-06 17:38] LABS: Urine Red Blood Cell 0-2 /HPF (0-2)
[2025-01-06 19:20] VITALS: BP 151/98
[2025-01-06 22:06] VITALS: BP 144/47
[2025-01-06] MEDS: TYLENOL 650 MG PO (22:14)
[2025-01-06 23:03] VITALS: BP 140/50
== END 2025-01-06 23:23 | disposition home or self-care (01) ==
LOC: EMR 11:31
PROVIDERS: Emergency Medicine; Physician Assistant; EMERGENCY PHYSICIAN Emergency Medicine; FAMILY PHYSICIAN Family Medicine
DX: K59.00 Constipation, unspecified (principal); R14.0 Abdominal distension (gaseous); N39.0 Urinary tract infection, site not specified; I25.10 Atherosclerotic heart disease of native coronary artery without angina pectoris; I50.9 Heart failure, unspecified; I13.0 Hypertensive heart and chronic kidney disease with heart failure and stage 1 through stage 4 chronic kidney disease, or unspecified chronic kidney disease; N18.9 Chronic kidney disease, unspecified; E11.22 Type 2 diabetes mellitus with diabetic chronic kidney disease; I25.2 Old myocardial infarction; Z87.891 Personal history of nicotine dependence
CPT/HCPCS: 99285; 51798; 71046; 74176; 80053; 81003; 81015; 83690; 83880; 85025; 87077; 87086; 87186; 93005

== ENCOUNTER 2025-01-15 22:15 | Emergency (ER) | payer MEDICARE, OTHER, SELFPAY ==
[2025-01-15 22:22] VITALS: BP 148/52
[2025-01-15 22:40] VITALS: BMI 22.9
--- NOTE | 2025-01-15 22:43 | EDRN ---
Pt says her feet and legs are swollen up to abdomen which is pushing up into her chest. Pt denies cp. Legs started swelling yesterday, went down then back up again. Tonight, pt's stomach suddenly swelled up. Pt has constipation - last BM 3 days
ago. No abd pain, n/v/d, fever/chills/cough, urinary symptoms. Pt has a kidney infection for which she says she is taking amoxicillin which she is almost finished taking. Pt feels 'a little sob.'
[2025-01-15 22:54] VITALS: BP 151/47
[2025-01-15 23:00] VITALS: BP 144/105
--- NOTE | 2025-01-15 23:02 | ED.GENMED ---
History of Present Illness
General
Chief Complaint: Swelling
Source: patient
Exam Limitations: none
Time Seen by Provider: 01/15/25 22:59
Nursing documentation reviewed up to this point in time: agreed with
History of Present Illness
History of Present Illness:
This is an 89-year-old female with past medical history of CHF on Lasix, A-fib, COPD, chronic kidney disease, diabetes, presents to the ER today with concerns of shortness of breath, and swelling in her legs starting earlier today. Patient denies
any significant weight gain, reports that she only gained 1 pound. 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 Avery in [place]. She takes 20 mg of Lasix daily for her CHF. She also notes that there is abdominal bloating that started few days ago which she feels is
pressing up into her chest and putting a lot of pressure on it. She states that she currently is free of abdominal pain but states that there is some intermittent discomfort associated with this. Patient feels that she feels short of breath
constantly, more comfortable at rest however. She also notes coughing up thick white sputum but states that this is not unusual for her. She states that she used her inhaler earlier which did help with her symptoms. She denies any fever, chest
pain. She reports that she is currently taking antibiotic for UTI. The patient denies any leg pain. She reports that abdominal bloating and passes been attributed to constipation. She currently states that she does not had a bowel movement the
past 3 days despite taking MiraLAX twice daily regularly. She denies any recent long distance travel, any redness in her legs, any back or flank pain. Today she denies pelvic pain, burning with urination.
Past History
Past History
ED Past Medical History: Arrthythmia (remote hx A-fib s/p ablation), CHF, COPD, HTN, Hypercholesterolemia and Other (DM, osteoporosis)
ED Past Surgical History: Cholecystectomy and Other (PARTIAL HYSTERCTOMY CATARACTS PACEMAKER PLACEMENT 2002 GALLBLADDER REMOVED PACEMAKER GENERATOR CHANGE 01/2011 Right Hip Replacement)
Social History
Tobacco: Former smoker
Alcohol: None
Drug: None
Personal:
Living: with family
Employment: Retired
Family History
Family History: Other (non-contributory)
Review of Systems
Review of Systems
All Other Systems: ROS reviewed and negative except as documented in HPI and ROS
Phy Exam
Physical Exam
Physical Exam:
General: Patient is well appearing and in no acute distress; non-toxic
Skin: Warm and dry, no rashes or lesions
Head: Normocephalic, atraumatic
Eyes: Sclera non-icteric. EOMs intact.
Cardiac: Regular rate and rhythm, no murmurs
Peripheral Vascular: Bilateral lower extremity edema, 2+ DP and PT pulses bilaterally
Pulm: Increased respiratory rate, no clear dyspnea or respiratory distress at this time, right sided wheezing
Abdomen: Diffuse abdominal distention noted, tympanic to percussion, no focal tenderness
Neuro: CN II-XII intact, no focal neurologic deficits.
Psychiatric: Appropriate mood and affect.
Scores
Heart Failure Risk
Heart Failure Risk Score: Yes
History of Stroke or TIA: No
History of intubation for respiratory distress: No
Heart rate on ED arrival >/= 110: No
SaO2 <90% on arrival on room air: No
HR >/=110 during 3min walk test (or too ill to perform test): No
ECG has acute ischemic changes: No
Urea >/=12mmol/L (BUN 33.6mg/dL): No
Serum CO2>/=35mmol/L: No
Troponin I or T elevated to [place] Level (0.4mg/dL): No
NT-proBNP >/=5,000ng/L (5,000pg/ml): Yes
HF Risk Score: 1
Admission Status: MEDIUM RISK 5.1% Consider observation or discharge to home with homecare & f/u visit to PCP/[facility], or SNF for treatment
Course
Orders/Labs/Results
Orders:
Orders
01/15/25 23:13
Iohexol [Omnipaque] See Protocol PO NOW STA
01/15/25 23:14
Electrocardiogram (*1) Urgent
Reason for Study: Shortness of Breath
EKG- Treatment ONCE
01/15/25 23:16
pacemaker [Interrogate Pacemaker- Treatment] ONCE
01/15/25 23:29
Complete Blood Count/With Diff Urgent
Comprehensive Metabolic Panel Urgent
Lipase Urgent
NT-proBNP Urgent
Troponin I Urgent
01/15/25 23:57
COVID-19 Antigen Urgent
Source: Nasal Swab
Influenza A+B Rapid Molecular Urgent
LACI Source: Nasal Swab
Specimen Description:
01/16/25 00:00
CT Abd/pel (oral only)-[facility] Only Urgent
Reason For Exam: diffuse worsening ab distension, discomfort
CR Chest - 2 Views Urgent
Reason For Exam: shortness of breath
01/16/25 02:10
Lactulose [Duphalac/Chronulac] 20 grams PO DAILY ONE
01/16/25 02:21
Magnesium Citrate [Citroma] 150 ml PO ONCE ONE
Abnormal Lab Results
01/15/25
23:29
RBC 2.99 L 10^6/uL
(4.20-5.40)
Hgb 9.3 L g/dL
(12.0-16.0)
Hct 28.5 L %
(37.0-47.0)
MCH 31.1 H pg
(27.0-31.0)
MCHC 32.6 L g/dL
(33.0-37.0)
RDW 15.1 H %
(11.5-14.5)
Abs Immat Gran (auto) 0.1 H 10^3/uL
(0-0.05)
Absolute Neuts (auto) 8.4 H 10^3/uL
(1.4-6.5)
Absolute Lymphs (auto) 0.9 L 10^3/uL
(1.2-3.4)
Absolute Monos (auto) 0.9 H 10^3/uL
(0.1-0.6)
Immature Gran % 0.7 H %
(0-0.5)
Neutrophils % 79.2 H %
(42.2-75.2)
Lymphocytes % 8.2 L %
(20.5-51.1)
Sodium 133 L mmol/L
(135-145)
BUN 31 H mg/dl
(7-17)
Creatinine 1.7 H mg/dL
(0.6-1.0)
Glucose 162 H mg/dl
(70-99)
AST 98 H U/L
(14-36)
ALT 54 H U/L
(0-35)
Alkaline Phosphatase 131 H U/L
(38-126)
01/15/25 23:29
01/15/25 23:29
Vital Signs
Initial and Last Documented VS:
Initial Vital Signs
Temp Pulse Resp BP Pulse Ox
97.6 F 60 24 148/52 97
01/15/25 22:22 01/15/25 22:22 01/15/25 22:22 01/15/25 22:22 01/15/25 22:22
Last Documented Vital Signs
Temp Pulse Resp BP Pulse Ox
97.6 F 60 16 153/55 98
01/15/25 22:22 01/16/25 00:56 01/16/25 00:56 01/16/25 00:56 01/15/25 23:05
MDM/Problems Addressed
Differential Diagnosis Includes:
COPD exacerbation, CHF exacerbation, acute coronary syndrome, pneumonia, Upper respiratory tract infection, small bowel obstruction, constipation
MDM/Problems Addressed:
89-year-old female presents to the ER today with concerns of increasing shortness of breath, abdominal bloating, and swelling in her lower extremities. She does have a history of CHF and COPD. On exam, she has wheezing heard on the right side as
well as abdominal distension with bilateral lower extremity edema. Will obtain blood work, chest x-ray, CT of the abdomen pelvis. Pace maker eval. Vitals normal at this time, patient is satting 100% on room air.
Reviewed urine culture from 01/06/25 patient had E COLI on n culture was started on amoxicillin. Patient is still taking amoxicillin and has no urinary symptoms at this time, no fevers, no flank pain. Labs reviewed, hemoglobin at baseline, patient
has chronic anemia. Mild hyponatremia noted, renal function at baseline. Mild elevation in AST and ALT with normal total bilirubin. ProBNP trending down from previous visit. Troponin undetectable. Patient tested negative for COVID and flu.
Imaging pending
Reviewed note from 01/06/25, patient seen for similar symptoms, at that time abdominal distention attributed to constipation.
CT scan today shows constipation but no evidence of biliary disease. There is evidence of mild CHF with mild interstitial pulmonary edema and small bilateral pleural effusions as well as cardiomegaly. Chest x-ray today appears similar to prior.
BNP trending down. With new lower extremity edema as well as pulmonary edema noted on CT, suspect CHF exacerbation. Discussed increasing dose of Lasix to 40 mg for next 3 days. Discussed close follow-up with cardiology and strict return
precautions. See update note. Case reviewed with ED attending. No indication for hospital admission at this time. Patient and family expressed understanding. Patient stable for discharge.
Chronic conditions affecting care:
COPD, CHF, CKD, afib
*Pulse Oximetry
SaO2: 98
Oxygen Mode of Delivery: Room air
Patient hypoxic: no
*EKG
Interpreted by ED Provider?: Yes
EKG Intrepretation Date: 01/16/25
Interpretation: abnormal
Comparison EKG: no changes
Heart Rate: 60
Rate: normal
Rhythm: other (atrial paced rhythm)
Ischemia: non-specific ST changes
*Critical Care Note
Total Time (30-74mins, 75-104mins- exclusive of procedures): Not Applicable
Data Reviewed
Review of Other/Old Records Reveals: Records (Reviewed discharge summary from 12/23/2024 patient seen for NSTEMI and acute on chronic exacerbation of heart failure), Discharge Summary (Reviewed cardiology note from 12/23/2024 patient seen and had
increased dose from 10 mg to 20 mg) and Other (No data noted in external medical report )
Source: patient
Update Note
Update Note:
Update, reviewed pacemaker report, patient had alerts noted on her pacemaker evaluation including high ventricular rate detected twice during A-fib and AT episodes, episodes appear to occur in December, no episodes in January or when current
symptoms experienced
Update, patient passed her walk test, with walking ER senior wind turbine technician reported feelings of abdominal distension but denied abdominal pain, denied shortness of breath or chest pain. She did not become tachycardic or desaturate with walk test.
2:14 AM--reviewed CT study results with patient, prominent stool noted from mid transverse colon down to the rectum only slightly improved from previous exam. Will give dose of magnesium citrate. Patient reports that she did have a small bowel
movement after the walking test.
2:30 AM-- Patient given mag citrate, discussed drinking half the dose now but patient reports that she wants to take the medication when she gets home and does not want to wait here to have complete bowel movement. Her other daughters visit the
home daily and take turns and help manage her medications. Advised patient to continue taking MiraLAX and discussed taking subsequent dose of mag citrate tomorrow should she still have feelings of abdominal fullness. Patient expressed
understanding. Patient lives at home with her daughter and son-in-law.
ED Attending Note
-
Portions of this chart may have been created with voice recognition software.� Occasional wrong word or��sound alike� substitutions may have occurred due to the inherent limitations of voice recognition software.
Discharge Plan
Departure
Patient Disposition: Home (Routine Discharge)
Date of Disposition: 01/16/25
Time of Disposition: 02:27
Patient with high blood pressure during this ER visit?: Yes
Condition: Good
Discharge Problem:
CHF exacerbation, Constipation
Instructions: Constipation in adults - ED (DC), BLOOD PRESSURE, *PCP/Other [facility] Heart Failure Instructions
Prescriptions:
No Action
omeprazole magnesium [Prilosec OTC] 20 MG tablet,delayed release (DR/EC)
20 mg PO DAILY
atorvastatin 40 MG tablet
40 mg PO DAILY
tolterodine 2 MG tablet
2 mg PO BID
aspirin [Rayo Chewable Aspirin] 81 MG tablet,chewable
81 mg PO DAILY
Trulicity 0.75 MG/0.5 ML pen injector
0.75 mg SQ MO
latanoprost 0.005 % drops
1 drp BOTH EYES HS
amiodarone 200 mg tablet
200 mg PO DAILY
metoprolol succinate 50 mg tablet extended release 24 hr
50 mg PO DAILY
ondansetron 4 mg tablet,disintegrating
4 mg PO Q6HPRN PRN (Reason: nausea)
fluticasone propionate 50 mcg/actuation [facility],Suspension
1 spray INTRANASAL DAILYPRN PRN (Reason: allergies)
polyethylene glycol 3350 17 gram Powder In Packet
17 g PO DAILYPRN PRN (Reason: constipation)
loratadine [Claritin] 10 mg Tablet
10 mg PO DAILY PRN (Reason: allergies)
hydralazine 10 mg Tablet
10 mg PO BID Qty: 60 0RF
torsemide 20 mg Tablet
20 mg PO DAILY Qty: 30 0RF
isosorbide mononitrate 30 mg Tablet Extended Release 24 Hr
30 mg PO DAILY Qty: 30 0RF
dapagliflozin propanediol 10 mg Tablet
10 mg PO DAILY Qty: 30 0RF
budesonide-formoterol 160-4.5 mcg/actuation HFA aerosol inhaler
2 puff inhalation R BID Qty: 10.2 0RF
amoxicillin 500 mg capsule
500 mg PO Q12H Qty: 14 0RF
albuterol sulfate 90 mcg/actuation Hfa Aerosol Inhaler
1 inh INHALATION ONCE PRN (Reason: sob)
Referrals:
Chelsi Schroeder MD [Family Provider]
Activity Restrictions/Additional Instructions:
As discussed, your blood work is at baseline. Please increase your Lasix dose to 40 mg once daily for 3 days.
PLEASE CALL YOUR BULLET SWAGING MACHINE OPERATOR TOMORROW TO SCHEDULE FOLLOW UP APPOINTMENT.
You can take half the bottle of the magnesium citrate now. Should you continue to have fullness and persistent symptoms, you can take the rest of the dose later tomorrow.
Please continue to take MiraLAX twice a day.
PLEASE RETURN TO THE ER SHOULD YOU DEVELOP WORSENING ABDOMINAL PAIN, BLOODY STOOLS, DARK TARRY STOOLS, FAINTING SPELLS, DIZZINESS, LIGHTHEADEDNESS, CHEST PAIN, WORSENING SHORTNESS OF BREATH, FEVERS OR CHILLS, OR ANY OTHER SIGNS OR SYMPTOMS WORRISOME
TO YOU.
Interventions
Interventions:
*Risk Screen - Suicide Last Done: 01/15/25 22:22
*General Assessment Last Done: 01/15/25 22:22
*Neglect/Abuse Screening Last Done: 01/15/25 22:22
*ED- Fall Risk Assessment Last Done: 01/15/25 22:22
*ED COVID-19 Vaccine History Last Done: 01/15/25 22:22
*Nursing Disposition Last Done: 01/16/25 02:35
ED- Cardiac Assessment Last Done: 01/15/25 22:56
ED- Pulmonary Assessment Last Done: 01/15/25 22:56
ED-Skin Assessment Last Done: 01/15/25 22:56
Discharge Date and Time
Discharge Date/Time: 01/16/25 02:35
Print Language: ETHIOPIAN
[2025-01-15 23:36] LABS: Hematocrit 28.5 % (37.0-47.0); Hemoglobin 9.3 g/dL (12.0-16.0); Mean Corp Hgb Conc. 32.6 g/dL (33.0-37.0); Mean Corpuscular Volume 95.3 fL (81.0-99.0); Nucleated Red Blood Cells % 0 %; Platelet Count 185 10^3/uL (130-400); Red Cell Dist. Width 15.1 % (11.5-14.5)
[2025-01-15] MEDS: OMNIPAQUE 50 ML PO (23:46)
[2025-01-16] VITALS: BP 146/114
[2025-01-16 00:02] LABS: ALT (SGPT) 54 U/L (0-35); AST (SGOT) 98 U/L (14-36); Albumin 4.2 g/dl (3.5-5.0); Alkaline Phosphatase 131 U/L (38-126); Blood Urea Nitrogen 31 mg/dl (7-17); Calcium 9.7 mg/dl (8.4-10.2); Carbon Dioxide 25 mmol/L (22-30); Chloride 100 mmol/L (98-107); Estimated Creatinine Clearance 17 ml/min; Glucose 162 mg/dl (70-99); Lipase 125 U/L (23-300); Potassium 3.9 mmol/L (3.5-5.1); Sodium 133 mmol/L (135-145); Total Protein 6.9 g/dl (6.3-8.2); eGFR 28.67
[2025-01-16 00:13] LABS: Troponin I < 0.012 ng/ml
[2025-01-16 00:20] LABS: COVID-19 Antigen Negative (Negative)
[2025-01-16 00:56] VITALS: BP 153/55
[2025-01-16] MEDS: CITROMA 150 ML PO (02:26)
== END 2025-01-16 02:35 | disposition home or self-care (01) ==
LOC: EMR 22:15
PROVIDERS: Physician Assistant; EMERGENCY PHYSICIAN Emergency Medicine; FAMILY PHYSICIAN Family Medicine
DX: I13.0 Hypertensive heart and chronic kidney disease with heart failure and stage 1 through stage 4 chronic kidney disease, or unspecified chronic kidney disease (principal); E11.22 Type 2 diabetes mellitus with diabetic chronic kidney disease; I50.9 Heart failure, unspecified; N18.9 Chronic kidney disease, unspecified; K59.00 Constipation, unspecified; D64.9 Anemia, unspecified; E78.00 Pure hypercholesterolemia, unspecified; E87.1 Hypo-osmolality and hyponatremia; I25.10 Atherosclerotic heart disease of native coronary artery without angina pectoris; I48.91 Unspecified atrial fibrillation; J44.9 Chronic obstructive pulmonary disease, unspecified; Z79.899 Other long term (current) drug therapy; Z87.891 Personal history of nicotine dependence; Z95.0 Presence of cardiac pacemaker; Z11.52 Encounter for screening for COVID-19
CPT/HCPCS: 99285; 71046; 74176; 80053; 83690; 83880; 84484; 85025; 87502; 87811; 93005

== ENCOUNTER 2025-01-24 07:52 | Emergency (ER) | payer MEDICARE, OTHER, SELFPAY ==
[2025-01-24] VITALS (10 sets, daily range): BP systolic 92–160; BP diastolic 49–104; BMI 22.5
[2025-01-24 10:00] LABS: Hematocrit 29.0 % (37.0-47.0); Hemoglobin 9.6 g/dL (12.0-16.0); Mean Corp Hgb Conc. 33.1 g/dL (33.0-37.0); Mean Corpuscular Volume 92.9 fL (81.0-99.0); Nucleated Red Blood Cells % 0 %; Platelet Count 249 10^3/uL (130-400); Red Cell Dist. Width 15.2 % (11.5-14.5)
[2025-01-24 10:19] LABS: ALT (SGPT) 25 U/L (0-35); AST (SGOT) 27 U/L (14-36); Albumin 4.4 g/dl (3.5-5.0); Alkaline Phosphatase 127 U/L (38-126); Blood Urea Nitrogen 20 mg/dl (7-17); Calcium 9.9 mg/dl (8.4-10.2); Carbon Dioxide 24 mmol/L (22-30); Chloride 99 mmol/L (98-107); Glucose 132 mg/dl (70-99); Potassium 4.0 mmol/L (3.5-5.1); Sodium 132 mmol/L (135-145); Total Protein 7.3 g/dl (6.3-8.2); eGFR 30.83
--- NOTE | 2025-01-24 10:23 | ED.GENMED ---
History of Present Illness
General
Chief Complaint: Chest Pain
Time Seen by Provider: 01/24/25 09:56
History of Present Illness
History of Present Illness:
89-year-old female with history of CAD with stenting, atrial fibrillation, peripheral artery disease, hyperlipidemia, CHF with pacemaker presenting for midsternal chest wall pain. Patient reports symptoms started this morning around 2 AM. She took
2 aspirin this morning. Notes the pain is a 3 out of 10. Does have some chronic shortness of breath, particular with exertion and some lower extremity edema, on Lasix. Patient was recently seen in the hospital on 12/15 for shortness of breath and
bloating, sent home after workup at baseline. Denies cough or fever. Arrives with daughter who notes chronic CAD with chronic occlusions in her coronary vessels, deemed not surgical candidate. Denies additional acute medical complaints
Past History
Past History
ED Past Medical History: Arrthythmia (remote hx A-fib s/p ablation), CHF, COPD, HTN, Hypercholesterolemia and Other (DM, osteoporosis)
ED Past Surgical History: Cholecystectomy and Other (PARTIAL HYSTERCTOMY CATARACTS PACEMAKER PLACEMENT 2002 GALLBLADDER REMOVED PACEMAKER GENERATOR CHANGE 01/2011 Right Hip Replacement)
Social History
Tobacco: Former smoker
Alcohol: None
Drug: None
Personal:
Living: with family
Employment: Retired
Family History
Family History: Other (non-contributory)
Phy Exam
Physical Exam
Physical Exam:
General: Well-appearing, no clinical signs of dehydration, nontoxic and in no acute distress
HEENT: protecting airway
Neck: appears supple
CV: Normal heart rate, regular rhythm
Resp: No accessory muscle use, no increased work of breathing, lungs clear to auscultation bilaterally
Abd: Soft and non-distended, no tenderness to palpation
Extremities: No deformities, no swelling
Neuro: alert, no focal neurologic deficit
: deferred
Rectal: deferred
Psych: Normal affect
Skin: Intact
Course
Orders/Labs/Results
Orders:
Orders
01/24/25 07:53
Electrocardiogram (*1) Urgent
Reason for Study: Chest Pain
EKG- Treatment ONCE
01/24/25 09:48
Complete Blood Count/With Diff Urgent
Comprehensive Metabolic Panel Urgent
NT-proBNP Urgent
Comment: ADD ON
Troponin I Urgent
01/24/25 10:04
CR Chest - 2 Views Urgent
Comment:
Reason For Exam: chest pain
01/24/25 10:17
Add On- LAB Urgent
Comments:: add on to Troponin sent earlier
Tests Added?: BNP
01/24/25 11:14
Nitroglycerin Sublingual [Nitrostat (Sublingual)] 0.4 mg SL NOW STA
01/24/25 12:50
Electrocardiogram (*1) Urgent
Reason for Study: Chest Pain
EKG- Treatment ONCE
01/24/25 13:06
Troponin I Urgent
Abnormal Lab Results
01/24/25
09:48
RBC 3.12 L 10^6/uL
(4.20-5.40)
Hgb 9.6 L g/dL
(12.0-16.0)
Hct 29.0 L %
(37.0-47.0)
RDW 15.2 H %
(11.5-14.5)
Abs Immat Gran (auto) 0.1 H 10^3/uL
(0-0.05)
Absolute Lymphs (auto) 0.8 L 10^3/uL
(1.2-3.4)
Absolute Monos (auto) 0.8 H 10^3/uL
(0.1-0.6)
Immature Gran % 0.9 H %
(0-0.5)
Lymphocytes % 11.8 L %
(20.5-51.1)
Monocytes % 10.6 H %
(1.7-9.3)
Sodium 132 L mmol/L
(135-145)
BUN 20 H mg/dl
(7-17)
Creatinine 1.6 H mg/dL
(0.6-1.0)
Glucose 132 H mg/dl
(70-99)
Alkaline Phosphatase 127 H U/L
(38-126)
01/24/25 09:48
01/24/25 09:48
Vital Signs
Initial and Last Documented VS:
Initial Vital Signs
Temp Pulse Resp BP Pulse Ox
98.0 F 61 18 160/62 98
01/24/25 07:54 01/24/25 07:54 01/24/25 07:54 01/24/25 07:54 01/24/25 07:54
Last Documented Vital Signs
Temp Pulse Resp BP Pulse Ox
98.0 F 62 16 92/65 99
01/24/25 07:54 01/24/25 14:00 01/24/25 14:00 01/24/25 14:00 01/24/25 14:00
MDM/Problems Addressed
MDM/Problems Addressed:
89-year-old female with multiple comorbidities including hypertension, hyperlipidemia, CAD with stenting and known coronary vessel disease presenting to the emergency department for substernal chest pain. Vital signs are significant for mild
hypertension.
On exam patient is resting comfortably, no acute distress or discomfort. EKG obtained on arrival, does show abnormal findings with lateral T wave inversion, however appears unchanged from prior. Patient with known coronary vessel disease, with
coronary catheterization performed on 12/21, shows chronic total occlusion to the right and left circumflex artery patent LAD. Patient symptoms could be secondary to anginal pain. No current evidence of STEMI. Will screen further laboratory
analysis including troponin. Recent visit to the hospital on 01/15 for shortness of breath, known history of CHF. Will also obtain chest x-ray imaging and BNP. Lower suspicion for severe acute CHF exacerbation, without any signs of volume overload
on exam, lungs clear to auscultation. Patient afebrile, nontoxic with lower suspicion for infectious pathology.
15:10 -patient's EKG is unchanged and second troponin is undetectable. Patient does note improvement of pain. Did try 1 dose of nitro, however did not help with the pain. Pain improved after she cleared her throat. Did offer admission given
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 Feel reasonable given hemodynamic stability, negative troponin x 2 and unchanged EKG.
Patient is requesting a prescription for a sinus infection, notes some sinus discomfort for the last 2 weeks with prior history. Will prescribe. Strict return precautions were communicated to daughter and patient at bedside who verbalized
understanding
*Pulse Oximetry
SaO2: 98
Oxygen Mode of Delivery: Room air
Patient hypoxic: no
*EKG
Interpreted by ED Provider?: Yes
EKG Intrepretation Date: 01/24/25
EKG Intrepretation Time: 10:28
Interpretation: abnormal
Comparison EKG: no changes
Heart Rate: 60
Rate: normal
Rhythm: sinus
[place]: normal axis
Interval: normal interval
QRS Pattern: normal QRS
Ischemia: T-wave inversion (laterally)
*Critical Care Note
Total Time (30-74mins, 75-104mins- exclusive of procedures): Not Applicable
ED Attending Note
-
Portions of this chart may have been created with voice recognition software.� Occasional wrong word or��sound alike� substitutions may have occurred due to the inherent limitations of voice recognition software.
Discharge Plan
Departure
Prescriptions:
No Action
omeprazole magnesium [Prilosec OTC] 20 MG tablet,delayed release (DR/EC)
20 mg PO DAILY
atorvastatin 40 MG tablet
40 mg PO QPM
tolterodine 2 MG tablet
2 mg PO BID
aspirin [Rayo Chewable Aspirin] 81 MG tablet,chewable
81 mg PO DAILY
latanoprost 0.005 % drops
1 drp BOTH EYES HS
amiodarone 200 mg tablet
200 mg PO DAILY
metoprolol succinate 50 mg tablet extended release 24 hr
50 mg PO DAILY
fluticasone propionate 50 mcg/actuation [facility],Suspension
1 spray INTRANASAL DAILYPRN PRN (Reason: allergies)
loratadine [Claritin] 10 mg Tablet
10 mg PO DAILYPRN PRN (Reason: allergies)
hydralazine 10 mg Tablet
10 mg PO BID Qty: 60 0RF
torsemide 20 mg Tablet
20 mg PO DAILY Qty: 30 0RF
isosorbide mononitrate 30 mg Tablet Extended Release 24 Hr
30 mg PO DAILY Qty: 30 0RF
dapagliflozin propanediol 10 mg Tablet
10 mg PO DAILY Qty: 30 0RF
budesonide-formoterol 160-4.5 mcg/actuation HFA aerosol inhaler
2 puff inhalation R BID Qty: 10.2 0RF
albuterol sulfate 90 mcg/actuation Hfa Aerosol Inhaler
1 inh INHALATION R Q6HPRN PRN (Reason: sob)
Referrals:
Chelsi Schroeder MD [Family Provider]
Interventions
Interventions:
*Risk Screen - Suicide Last Done: 01/24/25 07:57
*General Assessment Last Done: 01/24/25 07:54
*Neglect/Abuse Screening Last Done: 01/24/25 07:54
*ED- Fall Risk Assessment Last Done: 01/24/25 10:45
*ED COVID-19 Vaccine History Last Done: 01/24/25 10:45
ED- Cardiac Assessment Last Done: 01/24/25 10:25
Discharge Date and Time
Print Language: TAIWANESE
[2025-01-24 10:30] LABS: Troponin I < 0.012 ng/ml
[2025-01-24] MEDS: NITROSTAT (SUBLINGUAL) 0.4 MG SL (11:20)
[2025-01-24 13:41] LABS: Troponin I < 0.012 ng/ml
--- NOTE | 2025-01-24 15:46 | EDRN ---
Discharge instructions reviewed with patient and her daughter. Verbalized understanding. Taken to lobby in wheelchair.
== END 2025-01-24 15:49 | disposition home or self-care (01) ==
LOC: EMR 07:52
PROVIDERS: Emergency Medicine; EMERGENCY PHYSICIAN Student in an Organized Health Care Education/Training Program; FAMILY PHYSICIAN Family Medicine
DX: R07.9 Chest pain, unspecified (principal); J32.9 Chronic sinusitis, unspecified; E11.51 Type 2 diabetes mellitus with diabetic peripheral angiopathy without gangrene; I25.10 Atherosclerotic heart disease of native coronary artery without angina pectoris; I25.82 Chronic total occlusion of coronary artery; I48.91 Unspecified atrial fibrillation; I11.0 Hypertensive heart disease with heart failure; I50.9 Heart failure, unspecified; E78.00 Pure hypercholesterolemia, unspecified; J44.9 Chronic obstructive pulmonary disease, unspecified; M81.0 Age-related osteoporosis without current pathological fracture; Z79.82 Long term (current) use of aspirin; Z95.5 Presence of coronary angioplasty implant and graft; Z95.0 Presence of cardiac pacemaker; Z87.891 Personal history of nicotine dependence; Z96.641 Presence of right artificial hip joint
CPT/HCPCS: 99284; 71046; 80053; 83880; 84484; 85025; 93005

== ENCOUNTER 2025-04-21 16:18 | Inpatient (IN) | payer MEDICARE, OTHER, SELFPAY ==
[2025-04-21] VITALS (13 sets, daily range): BP systolic 118–152; BP diastolic 41–96; BMI 21.7; BMI 21.3
[2025-04-21 11:32] LABS: Hematocrit 28.2 % (37.0-47.0); Hemoglobin 9.0 g/dL (12.0-16.0); Mean Corp Hgb Conc. 31.9 g/dL (33.0-37.0); Mean Corpuscular Volume 86.2 fL (81.0-99.0); Nucleated Red Blood Cells % 0 %; Platelet Count 256 10^3/uL (130-400); Red Cell Dist. Width 16.8 % (11.5-14.5)
[2025-04-21 11:43] LABS: INR 1.18; PT 15.2 Sec (11.4-14.6)
[2025-04-21 11:56] LABS: ALT (SGPT) 20 U/L (0-35); AST (SGOT) 29 U/L (14-36); Albumin 3.9 g/dl (3.5-5.0); Alkaline Phosphatase 189 U/L (38-126); Blood Urea Nitrogen 25 mg/dl (7-17); Calcium 9.1 mg/dl (8.4-10.2); Carbon Dioxide 28 mmol/L (22-30); Chloride 96 mmol/L (98-107); Glucose 179 mg/dl (70-99); Potassium 4.0 mmol/L (3.5-5.1); Sodium 132 mmol/L (135-145); Total Protein 6.9 g/dl (6.3-8.2); eGFR 28.49
[2025-04-21 12:09] LABS: Troponin I 0.016 ng/ml
--- NOTE | 2025-04-21 15:01 | ED.GENMED ---
History of Present Illness
General
Chief Complaint: Chest Pain
Source: patient and family
Exam Limitations: none
Time Seen by Provider: 04/21/25 11:58
Nursing documentation reviewed up to this point in time: agreed with
History of Present Illness
History of Present Illness:
Note:
CHIEF COMPLAINT(S)
Heaviness in the chest.
HISTORY OF PRESENT ILLNESS
The patient is an 89-year-old female who reports waking up this morning with a sensation she describes as unusual, like something she never felt before. She initially took two baby aspirin, which provided some relief, though she continues to
experience a sense of heaviness in her chest. The exact onset time of the heaviness is not specified but occurred earlier today. Additionally, the patient notes discomfort associated with her voice.
The patient has a history of having a pacemaker, which was implanted by Dr. Hodges at [place], with her most recent pacemaker placement occurring at a different facility. She mentions occasional difficulties with breathing. Further evaluation,
including a lab test and a chest X-ray, is planned to assess the function of the pacemaker and exclude potential cardiac issues.
ADDITIONAL HISTORY OBTAINED FROM SOURCE OTHER THAN PATIENT
The patients daughter is present and confirms that she�s the patients family member, providing assistance and support during the visit.
PHYSICAL EXAM
General: Alert, no acute distress.
Skin: Warm, dry.
Head: Normocephalic, atraumatic.
Neck: Supple, trachea midline.
Eye Ears, nose, mouth and throat: Oral mucosa moist.
Cardiovascular: Normal peripheral perfusion, No edema.
Respiratory: Respirations are non-labored.
Gastrointestinal: Abdomen nondistended.
Back: Normal range of motion, Normal alignment.
Musculoskeletal: Normal ROM, normal strength.
Neurological: Alert and oriented to person, place, time, and situation, No focal neurological deficit observed.
Psychiatric: Cooperative, appropriate mood & affect.
PLAN
An X-ray is planned to evaluate the pacemakers function and assess any potential cardiac issues. Further diagnostics will be conducted as needed based on lab results and clinical observations during the encounter.
DIFFERENTIAL DIAGNOSIS
The Differential Diagnosis includes, in no particular order and is not limited to:
1. Angina pectoris
2. Myocardial infarction
3. Pulmonary embolism
4. Congestive heart failure
5. Chronic obstructive pulmonary disease exacerbation
6. Anxiety or panic attack
7. Pneumonia
8. Gastroesophageal reflux disease
9. Pericarditis
10. Anemia
Disposition:
SUMMARY OF ENCOUNTER
The patient, an 89-year-old female, presented to the emergency department with a complaint of unusual heaviness in the chest, which she experienced upon waking up this morning. She took two baby aspirin initially, which provided some relief.
Additionally, she reported discomfort associated with her voice and occasional difficulty breathing. Given her history of a pacemaker, a chest X-ray and lab tests were planned to assess pacemaker function and exclude potential cardiac issues.
DISPOSITION
Admit to hospitalists for further treatment.
ASSESSMENT
The patient is suspected to be experiencing congestive heart failure (CHF) exacerbation.
EMERGENCY TREATMENTS ADMINISTERED
Intravenous antibiotics were administered.
PLAN
The plan is to admit the patient to the hospital for further treatment and management of her condition.
MEDICAL DECISION MAKING
- Number and Complexity of Problems Addressed: Chronic conditions affecting care include a history of having a pacemaker and occasional breathing difficulties. Differential diagnosis considerations included:
1. Angina pectoris
2. Myocardial infarction
3. Pulmonary embolism
4. Congestive heart failure
5. Chronic obstructive pulmonary disease exacerbation
6. Anxiety or panic attack
7. Pneumonia
8. Gastroesophageal reflux disease
9. Pericarditis
10. Anemia
- Data:
Category 2
Clinical information was obtained from an independent historian, the patients daughter.
DIAGNOSIS
Congestive Heart Failure Exacerbation (ICD-10: I50.9)
Past History
Past History
ED Past Medical History: Arrthythmia (remote hx A-fib s/p ablation), CHF, COPD, HTN, Hypercholesterolemia and Other (DM, osteoporosis)
ED Past Surgical History: Cholecystectomy and Other (PARTIAL HYSTERCTOMY CATARACTS PACEMAKER PLACEMENT 2002 GALLBLADDER REMOVED PACEMAKER GENERATOR CHANGE 01/2011 Right Hip Replacement)
Social History
Tobacco: Former smoker
Alcohol: None
Drug: None
Personal:
Living: with family
Employment: Retired
Family History
Family History: Other (non-contributory)
Phy Exam
Physical Exam
Physical Exam:
.
Scores
Heart Failure Risk
Heart Failure Risk Score: Yes
History of Stroke or TIA: No
History of intubation for respiratory distress: No
Heart rate on ED arrival >/= 110: No
SaO2 <90% on arrival on room air: Yes
HR >/=110 during 3min walk test (or too ill to perform test): Yes
ECG has acute ischemic changes: No
Urea >/=12mmol/L (BUN 33.6mg/dL): No
Serum CO2>/=35mmol/L: No
Troponin I or T elevated to NE Level (0.4mg/dL): No
NT-proBNP >/=5,000ng/L (5,000pg/ml): Yes
HF Risk Score: 4
Admission Status: HIGH RISK 26.1% Consider SNF treatment or admission to hospital
Heart Score for Chest Pain Patients
STEMI patient?: No
History: Slightly or Non-Suspicious
ECG: Nonspecific Repolarization
Age: >/= 65 years
Risk Factors: >/= 3 Risk Factors or History of CAD
Troponin: </= Normal Limit
Heart Score for Chest Pain Patients: 5
Heart Score Risk: 20.3% MACE over next 6 weeks
Course
Orders/Labs/Results
Orders:
Orders
04/21/25 11:10
EKG [Electrocardiogram (*1)] Urgent
Reason for Study: Chest Pain
EKG- Treatment ONCE
04/21/25 11:24
Complete Blood Count/With Diff Urgent
Comprehensive Metabolic Panel Urgent
NT-proBNP Urgent
Comment: ADD ON
Prothrombin Time Urgent
Troponin I Urgent
04/21/25 12:12
CR Chest - 2 Views Urgent
Comment:
Reason For Exam: right side chest pain
04/21/25 14:44
Add On- LAB Urgent
Tests Added?: bnp
Ipratropium Nebs [Atrovent Nebules] 0.5 mg INH R NOW STA
04/21/25 14:58
Bumetanide [Bumex] 0.5 mg IV NOW STA
04/21/25 15:41
Admit/Transfer Patient As Directed
Co-Sign Provider:
Level of Care: Inpatient admission
Assign to:: Telemetry
Physician / Group: hospitalist
Diagnosis: CHF exacerbation
Reason for Telemetry: Medication for Arrhythmia
Date to Stop Telemetry: 04/23/25
Time to Stop Telemetry: 11:00
Reason for Hospitalization: CHF exacerbation
Expected length of stay greater than two midnights?: Yes
ELOS- Estimated Length of Stay in days: 3
I certify the patient meets the requirements for IP care: Yes
PRN Pain Medication Management As Directed
May give lesser potent ordered pain med per pt: Yes
preference::
Protocol:: Medication orders for pain may be administered in a
manner that supports deferring to patient preference
when the pt is:
- Requesting an ordered lesser potent pain medication.
Least to most potent pain medications are defined
as: acetaminophen < NSAID < tramadol < opioids
(morphine, oxycodone, hydromorphone).
- Requesting a lesser dose of the same medication IF
ORDERED.
- Requesting a less intrusive route of administration
if both routes are prescribed by the provider (PO <
IV).
04/21/25 15:49
Code Status As Directed
Resuscitation Status: Do not resuscitate
Reached after discussion with pt or family/Healthcare POA: Yes
DNR Bracelet Application ONCE
04/21/25 15:53
Bumetanide [Bumex] 1 mg IV NOW STA
04/21/25 15:54
CR Ribs-left 2 Vw No Pa Chest Urgent
Comment:
Reason For Exam: left 10th-11 rib tenderness
04/21/25 16:14
Bumetanide [Bumex] 0.5 mg IV NOW STA
04/23/25 11:00
DC Protocol for Telemetry ONCE
Abnormal Lab Results
04/21/25
11:24
RBC 3.27 L 10^6/uL
(4.20-5.40)
Hgb 9.0 L g/dL
(12.0-16.0)
Hct 28.2 L %
(37.0-47.0)
MCHC 31.9 L g/dL
(33.0-37.0)
RDW 16.8 H %
(11.5-14.5)
Absolute Lymphs (auto) 1.0 L 10^3/uL
(1.2-3.4)
Absolute Monos (auto) 0.7 H 10^3/uL
(0.1-0.6)
Lymphocytes % 14.2 L %
(20.5-51.1)
Monocytes % 9.7 H %
(1.7-9.3)
PT 15.2 H Sec
(11.4-14.6)
Sodium 132 L mmol/L
(135-145)
Chloride 96 L mmol/L
(98-107)
BUN 25 H mg/dl
(7-17)
Creatinine 1.7 H mg/dL
(0.6-1.0)
Glucose 179 H mg/dl
(70-99)
Alkaline Phosphatase 189 H U/L
(38-126)
04/21/25 11:24
04/21/25 11:24
Vital Signs
Initial and Last Documented VS:
Initial Vital Signs
Temp Pulse Resp BP Pulse Ox
97.3 F 60 18 130/96 97
04/21/25 11:15 04/21/25 11:15 04/21/25 11:15 04/21/25 11:15 04/21/25 11:15
Last Documented Vital Signs
Temp Pulse Resp BP Pulse Ox
97.9 F 60 19 143/80 95
04/21/25 15:37 04/21/25 16:21 04/21/25 15:37 04/21/25 16:21 04/21/25 15:37
*Pulse Oximetry
SaO2: 97
Oxygen Mode of Delivery: Room air
Patient hypoxic: yes
*Critical Care Note
Total Time (30-74mins, 75-104mins- exclusive of procedures): Not Applicable
ED Attending Note
-
Portions of this chart may have been created with voice recognition software.� Occasional wrong word or��sound alike� substitutions may have occurred due to the inherent limitations of voice recognition software.
Discharge Plan
Departure
Patient Disposition: Admit
Date of Disposition: 04/21/25
Time of Disposition: 15:05
Admit to: Telemetry
Presentation/result/management discussed w/ accepting MD/DO: Hospitalist
Patient with high blood pressure during this ER visit?: Yes
Condition: Fair
Discharge Problem:
Acute exacerbation of CHF (congestive heart failure), Chest pain
Interventions
Interventions:
*Risk Screen - Suicide Last Done: 04/21/25 11:15
*General Assessment Last Done: 04/21/25 12:40
*Neglect/Abuse Screening Last Done: 04/21/25 12:40
*ED COVID-19 Vaccine History Last Done: 04/21/25 12:40
*ED Influenza Vaccine History Last Done: 04/21/25 11:15
[facility] Risk Assessment Tool Last Done: 04/21/25 13:00
ED- Cardiac Assessment Last Done: 04/21/25 12:40
--- NOTE | 2025-04-21 15:11 | HPS.HSE ---
Addendum entered and electronically signed by Yris Zurita MD 04/21/25 16:30:
This is an addendum to the H&P written by Carter Jimenez on 04/21/2025. �Patient seen and examined independently with resident.
89-year-old female past medical history of CAD/NSTEMI, HFrEF, CKD 3B, paroxysmal atrial fibrillation status post ablation pacemaker, hypertension, hyperlipidemia, COPD, constipation, diabetes, anemia, osteoporosis, presenting with right-sided
chest/epigastric pressure, nonradiating, shortness of breath starting last night. �Shortness of breath for months. �Torsemide increased 3 days ago. �Gained 7 pounds. �Increased abdominal distention/lower extremity edema.
Vital signs unremarkable. On examination she has tenderness of left costocondral region.�
Labs show stable anemia of 9. �Cardiac BNP of 11,000. �Troponin 0.016. �Creatinine of 1.7 at baseline.
EKG shows ventricular paced rhythm.
Chest x-ray shows mild to moderate cardiomegaly, mild interstitial cardiogenic pulm edema, minimal bilateral pleural effusions.
Patient with acute HFrEF exacerbation. �IV Bumex. �Chest pain likely from congestion now resolved. �Continue to monitor. �Trend troponins. �Cardiology consulted.
Check left rib xrays due to tenderness of left rib.�
Original Note:
Family Physician
-
Family Physician: Chelsi Schroeder
Chief Complaint
-
SOB,CP
History of Present Illness
89 year old female with PMH of A-fib s/p ablation on amiodarone, CHF, COPD, HTN, Hypercholesterolemia, presents with SOB and right side CP started last night. CP is more pressure like, non radiating. She also reports of left rib pain (10th-11th
rib), she had a fall a month ago. She notes that SOB is ongoing for about a month on exertion and at rest. She was seen by her computer numerical control machinist his week Dr Avery and torsemide 20 mg was increase to BID. SHe started to take the increased dose 3 days
ago. SHe notes that bilateral leg swelling has increased. She weighs herself daily and notes increased weigh gain about 7 lbs weight gain. Dry weight 111lbs. Her weight had increased to 121lbs but after increasing torsemide to BID weight improved to
118lbs. 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 [facility] 12/21/2024: Severe two-vessel coronary artery disease with chronic total occlusion of both the right and left circumflex arteries.
Medical History
Past Medical History
Past Medical History: Reports Other (Arrthythmia (remote hx A-fib s/p ablation), CHF, COPD, HTN, Hypercholesterolemia and Other (DM, osteoporosis))
Past Surgical History: Reports Other (Cholecystectomy and Other (PARTIAL HYSTERCTOMY CATARACTS PACEMAKER PLACEMENT 2002 GALLBLADDER REMOVED PACEMAKER GENERATOR CHANGE 01/2011 Right Hip Replacement))
Social History
Tobacco: Non-smoker
Alcohol: None
Drug: None
Personal: Single
Living: With Family
Employment: Retired
Family History
Family History: Not pertinent
Allergies / Home Medications
Allergies reflects when Allergies were last updated in [employer].
Home Medications with original date entered in [employer]
Allergy/Medication List:
Allergies
Allergy/AdvReac Type Severity Reaction Status Date / Time
dexamethasone (From Maxitrol) Allergy Unknown Verified 04/21/25 11:15
lisinopril Allergy Rash Verified 04/21/25 11:15
neomycin (From Maxitrol) Allergy Unknown Verified 04/21/25 11:15
polymyxin B (From Maxitrol) Allergy Unknown Verified 04/21/25 11:15
sulfamethoxazole (From Allergy Unknown Verified 04/21/25 11:15
Bactrim)
trimethoprim (From Bactrim) Allergy Unknown Verified 04/21/25 11:15
Home Medications
aspirin 81 mg chewable tablet (Rayo Chewable Low Dose Aspirin) 81 mg PO DAILY Blood Clot Prevention/Tx 02/13/21
atorvastatin 40 mg tablet 40 mg PO QPM High Cholesterol 02/13/21
tolterodine 2 mg tablet 2 mg PO BID Urinary Issue 02/13/21
amiodarone 200 mg tablet 200 mg PO DAILY Arrhythmia 12/18/24
latanoprost 0.005 % eye drops 1 drp BOTH EYES HS Eye Condition 12/18/24
metoprolol succinate 50 mg tablet,extended release 24 hr 50 mg PO DAILY Blood Pressure 12/18/24
dapagliflozin propanediol 10 mg tablet 10 mg PO DAILY #30 tabs 12/23/24
hydralazine 10 mg tablet 10 mg PO BID #60 tabs 12/23/24
isosorbide mononitrate 30 mg tablet,extended release 24 hr 30 mg PO DAILY #30 tabs 12/23/24
torsemide 20 mg tablet 20 mg PO DAILY #30 tabs 12/23/24
albuterol sulfate 90 mcg/actuation aerosol inhaler 1 inh inhalation R Q6HPRN PRN sob 01/15/25
budesonide-formoterol HFA 160 mcg-4.5 mcg/actuation aerosol inhaler (Breyna) 2 puff inhalation R BID 04/21/25
dulaglutide 0.75 mg/0.5 mL subcutaneous pen injector (Trulicity) 0.75 mg SC MO 04/21/25
pantoprazole 40 mg tablet,delayed release (Protonix) 40 mg PO HS 04/21/25
Review of Systems
-
History Source: Patient and Family
A 12 point ROS was completed and negative except as noted: Yes
Physical Exam
Vital Signs
Vital Signs
Temp Pulse Resp BP Pulse Ox
97.3 F 60 16 139/58 97
04/21/25 11:15 04/21/25 14:45 04/21/25 12:43 04/21/25 14:00 04/21/25 15:01
Physical Exam
General: Comfortable and Conversant
HEENT: NormoCephalic, Anicteric and Moist mucous membranes
Respiratory: Clear
Cardiac: S1/S2 and Regular Rhythm
GI: Soft, Non Tender, Normal Bowel Sounds and Distended
Musculoskeletal: Edema, Left Lower Extremity (trace ), Edema, Right Lower Extremity (trace ) and Other (left side rib tenderness.)
Skin: Warm and Dry
Neuro: AO x 3
Hematologic/Lymphatic: No Lymphadenopathy
Psych: Calm
Laboratory Results
-
04/21/25 11:24
04/21/25 11:24
Laboratory Results
PT 15.2 Sec (11.4-14.6) H 04/21/25 11:24
INR 1.18 04/21/25 11:24
Total Bilirubin 1.0 mg/dl (0.2-1.3) 04/21/25 11:24
AST 29 U/L (14-36) 04/21/25 11:24
ALT 20 U/L (0-35) 04/21/25 11:24
Alkaline Phosphatase 189 U/L (38-126) H 04/21/25 11:24
Troponin I 0.016 ng/ml 04/21/25 11:24
Data Reviewed
-
Diagnostic Radiology: Report Reviewed by me and Discussed with Physician
Medical Tests (Nuc Med, Echo, EKG etc): Image Personally Visualized and interpreted, Report Reviewed by me and Discussed with Physician
Lab Data: Labs Reviewed by me and Discussed with Physician
Impression/Plan
-
IMPRESSION:
Acute on chronic HFrEF
Left rib pain
Paroxysmal afib s/p cardiac ablation post Watchman
Type 2 DM
CKD
Chronic hyponatremia
PLAN:
Acute on chronic HFrEF
Denies CP, SOB.
7 lbs weight gain from dry weight.
Dry weight 111kg.
s/p IV bumex 1 mg -- continue daily
Consult cardiology
Trend troponin.
Monitor weight,I/O
Recent echo 12/2024- LVEF 30-35 %
[facility] 12/21/2024: Severe two-vessel coronary artery disease with chronic total occlusion of both the right and left circumflex arteries.
Left rib pain
Post fall a month ago.
Check xray rib to r/o rib fracture.
Paroxysmal afib s/p cardiac ablation post Watchman
Currently in sinus rhythm.
Rate controlled.
Continue amiodarone, metoprolol
Patient not on anticoagulation at home
Type 2 DM
Continue home medication- SGLT2
Insulin sliding scale
Diabetic diet
Hemoglobin A1c previous 8.1
CKD
creatinine 1.8 on admission which is baseline
Continue to monitor.
Chronic hyponatremia
serum sodium 132 on admission which is baseline
Fluid overload due to HF exacerbation
Continue to monitor.
DNR
Heparin
4gm sodium
[2025-04-21] MEDS: BUMEX 0.5 MG IV ×2 (16:21)
--- NOTE | 2025-04-21 17:47 | EDCM ---
Reviewed chart and met with pt bedside in ED. Lives in 1 story apartment attached to her granddaughter's house. 2 EDMUND.
Independent in ADLs, personal care and ambulation at baseline, has cane and RW, has been using RW lately.
Confirms prescription coverage.
Hx [facility] in past, no hx SNF.
PCP: Chelsi Schroeder
[facility]
CM will continue to follow for all discharge planning needs.
--- NOTE | 2025-04-21 18:54 | PTCARENOTE ---
Rn direct marketing coordinator- Patient's admission completed remotely via phone. Primary nurse notified that patient qualifies as a fall risk via TT.
[2025-04-21 18:55] LABS: Troponin I 0.013 ng/ml
[2025-04-21] MEDS: HEPARIN 5000 UNITS SC (20:55)
[2025-04-21 21:23] LABS: Glucose - Point of Care 196 mg/dl (70-99)
[2025-04-21] MEDS: PROTONIX 40 MG PO (21:37)
[2025-04-21] MEDS: TYLENOL 650 MG PO (21:37)
[2025-04-21] MEDS: LIPITOR 40 MG PO (21:37)
[2025-04-21] MEDS: SYMBICORT 160/4.5 MCG INHALER 2 PUFF INH (21:58)
[2025-04-21] MEDS: DETROL 2 MG PO (22:21)
[2025-04-21] MEDS: XALATAN OPHTHALMIC SOLUTION 1 DROP BOTH EYES (22:22)
[2025-04-21] MEDS: APRESOLINE 10 MG PO (22:22)
[2025-04-22] MEDS: CLARITIN 10 MG PO (00:24)
[2025-04-22] MEDS: OCEAN, SALINE MIST 2 SPRAYS NASAL ×2 (00:24→23:18)
[2025-04-22 00:50] VITALS: BMI 21.3
[2025-04-22 00:51] LABS: Troponin I 0.017 ng/ml
[2025-04-22 03:00] VITALS: BP 111/45
[2025-04-22] MEDS: SENOKOT 8.6 MG PO ×2 (03:20→21:04)
[2025-04-22 06:00] VITALS: BMI 21.1
[2025-04-22 07:00] VITALS: BP 153/55
[2025-04-22 07:32] LABS: Hematocrit 27.3 % (37.0-47.0); Hemoglobin 8.8 g/dL (12.0-16.0); Mean Corp Hgb Conc. 32.2 g/dL (33.0-37.0); Mean Corpuscular Volume 86.7 fL (81.0-99.0); Platelet Count 250 10^3/uL (130-400); Red Cell Dist. Width 16.8 % (11.5-14.5)
[2025-04-22 07:47] LABS: Troponin I 0.015 ng/ml
--- NOTE | 2025-04-22 08:16 | W.PN.HOSP.TC ---
Today's Communication/Plan
-
See plan
Assessment / Plan
Assessment / Plan
Gen: NAD, AAOx3.
Eyes: EOMI, PERRLA, no scleral icterus.
Neck: supple.
CV: RRR, +S1/S2, no m/r/g.
Resp: CTAB anteriorly, no rales, wheezes, or rhonchi.
Abd: +BS, soft, NT, ND
Skin: No rashes. Trace lower extremity edema.
Neuro: CN 2-12 intact, non-focal.
Psych: Normal mood and affect.
CXR:
1. Mild to moderate cardiomegaly.
2. Mild interstitial cardiogenic pulmonary edema.
3. Minimal bilateral pleural effusions.
4. Severe calcific atherosclerotic plaque in the thoracic and abdominal aorta.
5. Left-sided cardiac pacemaker in place.
6. Severe multilevel lumbar discogenic degenerative disease.
L Ribs Xray: Small bilateral pleural effusions. No pneumothorax. Stable mild cardiomegaly. Generalized osseous demineralization. This limits osseous assessment. As far as visualized, no radiographically apparent/displacement left rib fracture. If
there continues to be significant clinical concern, or if it would affect medical management, further evaluation/follow-up chest CT may be considered.
Acute on chronic HFrEF:
-with L rib pain (no fx)
-proBNP 11,000
-increase Bumex to 1mg IV BID
-daily wts, I/Os
-cont Farxiga/BB/Imdur/Hydralazine
-initiate FR 1200cc/day
Other problems:
COPD: cont Symbicort
Essential HTN: cont BB/Imdur/Hydralazine
CAD: h/o NSTEMI
PAF: s/p ablation, s/p Watchman, cont Amio/BB
DM2: a1c 8.1%, currently only on SSI. Start Lantus 6U, change diet to ADA 1800kcal/day.
CKD3b
Chronic hyponatremia, mild
GERD: cont PPI
HLD: cont statin
DNR/Heparin
Total time spent on today's encounter was 50 minutes which included time spent in counseling the patient/family regarding diagnosis and treatment plan as listed above, goals of care, and symptom management. Case was discussed with nursing staff,
specialists, and care coordinators/case management. All labs and imaging personally reviewed by me. Remainder the time spent in detailed review of previous records, lab data, imaging, and other medical provider documentation.
Anticipated Discharge: 24 - 48 hours
Subjective/Interval History
-
Date of Service: April 22, 2025
Currently does not complain of shortness of breath. Complains of left rib pain.
Objective Data
-
Labs:
Laboratory Results
04/22/25
07:03
WBC 5.3
Hgb 8.8 L
Hct 27.3 L
Plt Count 250
Sodium Pending
Potassium Pending
Chloride Pending
Carbon Dioxide Pending
BUN Pending
Creatinine Pending
Glucose Pending
Calcium Pending
Vital Signs:
Vital Signs
Temp Pulse Resp BP Pulse Ox
97.8 F 61 18 111/45 95
04/22/25 03:00 04/22/25 03:00 04/22/25 03:00 04/22/25 03:00 04/22/25 03:00
I&O
04/21/25 04/22/25 04/23/25
06:59 06:59 06:59
Output Total 200 / 200 300 / 300
Balance -200 / -200 -300 / -300
[2025-04-22] MEDS: SYMBICORT 160/4.5 MCG INHALER 2 PUFF INH ×2 (08:17→20:19)
[2025-04-22 08:23] LABS: Glycohemoglobin (HgbA1c) 8.1 % (4.0-5.9)
[2025-04-22] MEDS: FARXIGA 10 MG PO (08:48)
[2025-04-22] MEDS: APRESOLINE 10 MG PO ×2 (08:48→21:03)
[2025-04-22] MEDS: DETROL 2 MG PO ×2 (08:48→20:59)
[2025-04-22] MEDS: BUMEX 1 MG IV ×2 (08:49→21:00)
[2025-04-22] MEDS: IMDUR (EXTENDED RELEASE) 30 MG PO (08:49)
[2025-04-22] MEDS: LOW STRENGTH ASPIRIN 81 MG PO (08:50)
[2025-04-22] MEDS: COLACE 100 MG PO ×2 (08:50→20:59)
[2025-04-22] MEDS: PACERONE 200 MG PO (08:50)
[2025-04-22] MEDS: HEPARIN 5000 UNITS SC ×2 (08:50→20:59)
[2025-04-22] MEDS: TOPROL XL 50 MG PO (08:50)
[2025-04-22 08:51] LABS: Glucose - Point of Care 142 mg/dl (70-99)
[2025-04-22] MEDS: MIRALAX 17 GRAMS PO (08:52)
[2025-04-22] MEDS: NOVOLOG FLEXPEN-LOW RESISTANCE SC (08:57)
[2025-04-22] MEDS: TYLENOL 650 MG PO ×2 (08:58→23:16)
[2025-04-22] MEDS: LANTUS 0.06 UNITS SC (09:29)
[2025-04-22 09:57] VITALS: BMI 21.1
[2025-04-22 11:00] VITALS: BP 99/63
--- NOTE | 2025-04-22 11:00 | CON.CAR ---
Addendum entered and electronically signed by Jarvis Navas MD 04/22/25 11:52:
I saw and examined the patient.
The EXCELLENCE LEADER or PA's note was reviewed and I agree with the note.
Comment: General: Well developed, well nourished in NAD.
Neck: Supple, no JVD, HJR, carotids +2 B/L, no bruits bilaterally.
Heart: Non displaced PMI, RRR, no murmurs, No S3, S4, no rubs.
Lungs: Scattered rhonchi
Extremities: No clubbing, cyanosis or edema bilaterally.
Neuro: Grossly nonfocal, awake, alert and oriented x3.
Alisson has a history of AK in December 2024 with catheterization revealing stable CAD with medical management advised, PAF status post PVI in 2011, status post Saint Charbel pacemaker, chronic systolic CHF, CKD stage IV, diabetes, hyperlipidemia, PAD,
hyponatremia.
She has noted increasing shortness of breath with lower extremity edema and 7 pound weight gain in the past week. Torsemide was doubled as an outpatient with some improvement. Last night she woke up with right-sided chest discomfort and came to
the ER was admitted for CHF
She feels better status post IV Bumex. Of note weight on admission was 114 pounds which is better than prior discharge weight in December 2024 which was 116 pounds.. Will need to follow creatinine closely with creatinine of 1.7 on admission.
Of note she is not anticoagulated for A-fib per agreement with risk of anticoagulation.
Original Note:
Medical History
-
Chief Complaint: Shortness of breath, lower extremity edema
History of Present Illness:
Alisson is an 89-year-old female with a past medical history of non-ST elevation AK 12/2024 status post cardiac catheterization at that time showing stable CAD with medical management advised, paroxysmal atrial fibrillation status post PVI in 2011,
Saint Charbel permanent pacemaker, heart failure reduced EF, chronic kidney disease stage IV, diabetes mellitus, hyperlipidemia, PAD, hyponatremia.
She is a patient of Dr. Avery at [facility]. She was hospitalized at [facility] in December 2024 for non-ST elevation AK and acute heart failure. She was discharged on torsemide 20 mg daily which was increased from her prior dose of 10 mg
daily. Farxiga was added.
She has been noting increase shortness of breath, lower extremity edema and had 7 pound weight gain in the past week. Torsemide was doubled to 20 mg twice daily 3 days prior to admission with some improvement in shortness of breath and edema. Last
night she woke up with right sided chest pressure and presented to the ED. She has also had issues with constipation recently.
ED evaluation:
proBNP 11,100
Chest x-ray: Mild interstitial cardiogenic pulmonary edema, minimal bilateral pleural effusions
Troponin 0.013-0.017�0.015
BUN/creatinine 25/1.7, NA 132, K4.0
EKG: V paced.
Her weight on admission was 114 pounds on stretcher scale, down compared to weight at time 12/23/2024 discharge when it was 116 pounds.
She was started on IV Bumex and had received 0.5 mg IV in ED and 1 mg IV this morning. Currently patient reporting improvement in shortness of breath and lower extremity edema. No complaints of chest pain.
Past medical history:
Non-ST elevation AK 12/2024 (cardiac cath12/21/2024 stable CAD, medical management advised)
Chronic HFrEF
CM, EF 35% by echo 12/19/24
CAD
RESEARCH DIRECTOR of circ, RCA and residual diag, LAD disease, stable by cath 12/21/2024, medically managed
Paroxysmal atrial fibrillation
s/p PVI 2011 (Dr. Cassidy)
St. Charbel PPM, last generator change 2020 (Dr. Hodges)
Hyperlipidemia
Diabetes mellitus
PVD
CKD 4
Hyponatremia
Anemia
Past Medical History
Past Medical History: Arrhythmias (Atrial fibrillation with pulmonary vein isolation in 2011. Saint Charbel permanent pacemaker generator change 2020.), COPD, HTN, NIDDM, Renal Failure (Chronic kidney disease) and Other (Peripheral vascular disease
possible carotid disease)
Past Surgical History: Cardiac (Pacemaker last generator change 2020 [facility]), Cholecystectomy, Gynecological, Orthopedic (Right hip replacement) and Other (Cataract surgery)
Social History
Tobacco: Former Smoker
Personal:
Living: With Family
Family History
Family History: CAD (Father)
Allergies / Home Medications
Allergy/AdvReac Type Severity Reaction Status Date / Time
dexamethasone (From Maxitrol) Allergy Unknown Verified 04/21/25 11:15
lisinopril Allergy Rash Verified 04/21/25 11:15
neomycin (From Maxitrol) Allergy Unknown Verified 04/21/25 11:15
polymyxin B (From Maxitrol) Allergy Unknown Verified 04/21/25 11:15
sulfamethoxazole (From Allergy Unknown Verified 04/21/25 11:15
Bactrim)
trimethoprim (From Bactrim) Allergy Unknown Verified 04/21/25 11:15
�Medication �Instructions �Recorded �Confirmed �Type
aspirin 81 mg chewable tablet 81 mg PO DAILY Blood Clot 02/13/21 04/21/25 History
(Rayo Chewable Low Dose Aspirin) Prevention/Tx
atorvastatin 40 mg tablet 40 mg PO QPM High Cholesterol 02/13/21 04/21/25 History
tolterodine 2 mg tablet 2 mg PO BID Urinary Issue 02/13/21 04/21/25 History
amiodarone 200 mg tablet 200 mg PO DAILY Arrhythmia 12/18/24 04/21/25 History
latanoprost 0.005 % eye drops 1 drp BOTH EYES HS Eye Condition 12/18/24 04/21/25 History
metoprolol succinate 50 mg 50 mg PO DAILY Blood Pressure 12/18/24 04/21/25 History
tablet,extended release 24 hr
dapagliflozin propanediol 10 mg 10 mg PO DAILY #30 tabs 12/23/24 04/21/25 Rx
tablet
hydralazine 10 mg tablet 10 mg PO BID #60 tabs 12/23/24 04/21/25 Rx
isosorbide mononitrate 30 mg 30 mg PO DAILY #30 tabs 12/23/24 04/21/25 Rx
tablet,extended release 24 hr
torsemide 20 mg tablet 20 mg PO DAILY #30 tabs 12/23/24 04/21/25 Rx
albuterol sulfate 90 mcg/actuation 1 inh inhalation R [id number] PRN sob 01/15/25 04/21/25 History
aerosol inhaler
budesonide-formoterol HFA 160 2 puff inhalation R BID 04/21/25 04/21/25 History
mcg-4.5 mcg/actuation aerosol
inhaler (Breyna)
dulaglutide 0.75 mg/0.5 mL 0.75 mg SC MO 04/21/25 04/21/25 History
subcutaneous pen injector
(Trulicity)
pantoprazole 40 mg tablet,delayed 40 mg PO HS 04/21/25 04/21/25 History
release (Protonix)
Review of Systems
-
History Source: Patient
All other systems: Negative unless noted
Physical Exam
Vital Signs
Temp Pulse Resp BP Pulse Ox
97.6 F 60 16 153/55 96
04/22/25 07:00 04/22/25 08:48 04/22/25 08:15 04/22/25 08:48 04/22/25 08:15
Lab Results
04/22/25 07:03
Troponin I 0.015 ng/ml 04/22/25 07:03
Zrz-J-Qgzzlzjooef Pept 74273 pg/ml 04/21/25 11:24
GEN: No distress, awake, Ox3
HEENT: supple, anicteric, mmm
LUNGS: Few crackles at bases
CV: Reg, S1/S2, no murmur
ABD: soft, BS+, NT/ND
EXT: Trace edema lower extremities
NEURO: Gross non-focal
SKIN: No rash
Impression / Plan
-
Information Security Risk Analyst: Dr. Avery
Impression:
Presented shortness of breath, lower extremity edema, chest pain, weight gain
Acute HFrEF
CM, EF 35% by echo 12/19/24
CAD
RESEARCH DIRECTOR of circ, RCA and residual diag, LAD disease, stable by cath 12/21/2024, medically managed
Paroxysmal atrial fibrillation
s/p PVI 2011 (Dr. Cassidy)
St. Charbel PPM, last generator change 2020 (Dr. Hodges)
Hyperlipidemia
Diabetes mellitus
PVD
CKD 4
Hyponatremia
Cardiac catheterization March 2024: Normal left main, calcified LAD 50% smooth proximal LAD, 70 to 80% stenosis in ostial D1 70% D2 proximal RESEARCH DIRECTOR of circumflex: RCA with proximal total occlusion and faint collaterals from conus and more so from
LAD, LVEDP was 25
C 12/21/2024: Severe two-vessel coronary artery disease with chronic total occlusion of both the right and left circumflex arteries as described above. The LAD is widely patent and appears angiographically unchanged from prior angiography in
March 2024. Elevated pulmonary pressures with high wedge pressure.
Echo 12/19/2024: EF 30-35%, which is new compared to 2023, mild to moderate MR, aortic sclerosis with mild AI, pulmonary artery systolic pressure is 54 mmHg, pacing wire seen, left atrium mildly dilated
Plan:
Acute on chronic heart failure reduced EF
- Continue IV diuresis with close monitoring of renal function
-Daily weights, I&O
- May need uptitration of torsemide dose at time of discharge
- Started on Farxiga 12/2024
-GDMT limited by renal insufficiency. She has not been on ELLIS/ARB/Entresto.
-Continue Toprol, isosorbide, hydralazine
- Echo 12/2024 EF 35%, this was a new reduction in LV function.
CAD
-[facility] 12/21/[address] Hodges-stable coronary anatomy: Severe two-vessel coronary artery disease with chronic total occlusion of both the right and left circumflex arteries as described above. The LAD is widely patent and appears angiographically
unchanged from prior angiography in March 2024. No intervention performed. Plan is for medical therapy.
-Presented with right sided chest pressure which resolved with diuresis. She had not been having chest pain prior to admission.
- Troponin detectable but not in ischemic range
-on aspirin 81 mg daily
-Continue atorvastatin with goal LDL 55-60 mg/dL. LDL 61 on Lipitor Thursday/ Thursday /Thursday.
-Continue metoprolol succinate 50 mg daily, Imdur 30 mg daily.
-Goal normotension
-Goal normoglycemia, suboptimal hemoglobin A1c 8.1%.
- Continue Farxiga 10 mg once daily
Chronic kidney disease with baseline creatinine 1.5.
-Creatinine 1.7 on admit
-daily BMP with IV diuretics
Patient has history of paroxysmal atrial fibrillation status post PVI in 2011 as well as sick sinus syndrome status post pacemaker
-Continue amiodarone and metoprolol
-Telemetry personally reviewed A paced 60 bpm
- Not currently on oral anticoagulation; [id number] score 9. During December 2024 admission, her case was reviewed with Dr. Hodges and discussed stroke risk and stroke risk prevention/risk benefits of anticoagulation with patient at bedside. Per
recommendations of Dr. Hodges, will not start oral anticoagulation. Patient was agreeable to this plan. If found to have high burden of afib, would reconsider intiation of oral anticoagulation.
-Could consider outpatient discussion of watchman.
Diabetes mellitus type 2, hemoglobin A1c 8.1%
- Consider consulting diabetic nurse practitioner.
Chronic anemia, hemoglobin ranges mid 8-9 g/dL
-Recommend outpatient evaluation with close monitoring of hemoglobin
Data Reviewed
-
EKG: Tracing Personally Visualized and interpreted
Labs: Labs Reviewed by me
[2025-04-22] MEDS: LIDOCAINE 4% PATCH 1 PATCH TOPICAL (11:18)
[2025-04-22 12:58] LABS: Glucose - Point of Care 240 mg/dl (70-99)
[2025-04-22] MEDS: NOVOLOG FLEXPEN-LOW RESISTANCE 3 UNITS SC (13:34)
[2025-04-22 15:00] VITALS: BP 110/43
[2025-04-22 15:20] LABS: ALT (SGPT) 17 U/L (0-35); AST (SGOT) 27 U/L (14-36); Albumin 3.1 g/dl (3.5-5.0); Alkaline Phosphatase 126 U/L (38-126); Blood Urea Nitrogen 22 mg/dl (7-17); Calcium 8.9 mg/dl (8.4-10.2); Carbon Dioxide 27 mmol/L (22-30); Chloride 101 mmol/L (98-107); Estimated Creatinine Clearance 18 ml/min; Glucose 138 mg/dl (70-99); Potassium 3.3 mmol/L (3.5-5.1); Sodium 134 mmol/L (135-145); Total Protein 6.0 g/dl (6.3-8.2); eGFR 30.64
[2025-04-22] MEDS: KCL 40 MEQ PO (17:02)
[2025-04-22] MEDS: LIPITOR 40 MG PO (17:03)
[2025-04-22 18:07] LABS: Glucose - Point of Care 166 mg/dl (70-99)
[2025-04-22] MEDS: NOVOLOG FLEXPEN-LOW RESISTANCE 1 UNITS SC (18:11)
[2025-04-22 18:58] VITALS: BP 137/49
[2025-04-22] MEDS: REMOVE LIDOCAINE PATCH 1 PATCH REMOVE (21:04)
[2025-04-22] MEDS: PROTONIX 40 MG PO (21:04)
[2025-04-22 21:08] LABS: Glucose - Point of Care 209 mg/dl (70-99)
[2025-04-22] MEDS: XALATAN OPHTHALMIC SOLUTION 1 DROP BOTH EYES (21:15)
[2025-04-22 23:30] VITALS: BP 125/51
[2025-04-23] VITALS (7 sets, daily range): BP systolic 114–129; BP diastolic 43–57; BMI 20.7
[2025-04-23 07:17] LABS: Blood Urea Nitrogen 19 mg/dl (7-17); Calcium 9.0 mg/dl (8.4-10.2); Carbon Dioxide 29 mmol/L (22-30); Chloride 101 mmol/L (98-107); Estimated Creatinine Clearance 18 ml/min; Glucose 143 mg/dl (70-99); Magnesium 2.3 mg/dl (1.6-2.3); Potassium 4.1 mmol/L (3.5-5.1); Sodium 135 mmol/L (135-145); eGFR 30.64
[2025-04-23] MEDS: SYMBICORT 160/4.5 MCG INHALER 2 PUFF INH ×2 (07:30→19:50)
[2025-04-23 08:15] LABS: Glucose - Point of Care 240 mg/dl (70-99)
[2025-04-23] MEDS: NOVOLOG FLEXPEN-LOW RESISTANCE 2 UNITS SC (08:33)
[2025-04-23] MEDS: APRESOLINE 10 MG PO ×2 (08:34→21:58)
[2025-04-23] MEDS: LOW STRENGTH ASPIRIN 81 MG PO (08:34)
[2025-04-23] MEDS: FARXIGA 10 MG PO (08:34)
[2025-04-23] MEDS: DETROL 2 MG PO ×2 (08:34→20:13)
[2025-04-23] MEDS: IMDUR (EXTENDED RELEASE) 30 MG PO (08:34)
[2025-04-23] MEDS: TOPROL XL 50 MG PO (08:35)
[2025-04-23] MEDS: COLACE 100 MG PO ×2 (08:35→20:13)
[2025-04-23] MEDS: HEPARIN 5000 UNITS SC ×2 (08:36→20:12)
[2025-04-23] MEDS: LANTUS 0.06 UNITS SC (08:37)
[2025-04-23] MEDS: LIDOCAINE 4% PATCH 1 PATCH TOPICAL (08:37)
[2025-04-23] MEDS: MIRALAX 17 GRAMS PO (08:38)
[2025-04-23] MEDS: BUMEX 1 MG IV ×2 (08:44→21:57)
[2025-04-23] MEDS: PACERONE 200 MG PO (08:44)
--- NOTE | 2025-04-23 09:29 | W.PN.CARDCBS ---
Today's Communication / Plan
-
Continue IV Bumex and consider change to oral torsemide in a.m. and discharge if ambulating okay
Impression / Plan
-
Package Yarns Drying Machine Operator: Dr. Avery
Impression:
Presented shortness of breath, lower extremity edema, chest pain, weight gain
Acute HFrEF
CM, EF 35% by echo 12/19/24
CAD
GLAZING DEPARTMENT SUPERVISOR of circ, RCA and residual diag, LAD disease, stable by cath 12/21/2024, medically managed
Paroxysmal atrial fibrillation
s/p PVI 2011 (Dr. Cassidy)
St. Charbel PPM, last generator change 2020 (Dr. Hodges)
Hyperlipidemia
Diabetes mellitus
PVD
CKD 4
Hyponatremia
Cardiac catheterization March 2024: Normal left main, calcified LAD 50% smooth proximal LAD, 70 to 80% stenosis in ostial D1 70% D2 proximal GLAZING DEPARTMENT SUPERVISOR of circumflex: RCA with proximal total occlusion and faint collaterals from conus and more so from
LAD, LVEDP was 25
C 12/21/2024: Severe two-vessel coronary artery disease with chronic total occlusion of both the right and left circumflex arteries as described above. The LAD is widely patent and appears angiographically unchanged from prior angiography in
March 2024. Elevated pulmonary pressures with high wedge pressure.
Echo 12/19/2024: EF 30-35%, which is new compared to 2023, mild to moderate MR, aortic sclerosis with mild AI, pulmonary artery systolic pressure is 54 mmHg, pacing wire seen, left atrium mildly dilated
Plan:
She remains on room air.
Weight continues to decrease with IV Bumex
Continue IV bumex with stable creatinine of 1.6
Consider change to oral diuretics on 04/24 and discharge if ambulating okay.
Patient was on torsemide 20 mg daily as an outpatients
She has not been anticoagulated for A-fib due to outpatient discussion
Continue amiodarone
Progress Note - Package Yarns Drying Machine Operator
Subjective
Date of Service: April 23, 2025
No complaints.
Objective
Labs:
04/22/25 07:03
04/23/25 06:13
Labs
Hgb 8.8 g/dL (12.0-16.0) L 04/22/25 07:03
Hct 27.3 % (37.0-47.0) L 04/22/25 07:03
Plt Count 250 10^3/uL (130-400) 04/22/25 07:03
PT 15.2 Sec (11.4-14.6) H 04/21/25 11:24
INR 1.18 04/21/25 11:24
Sodium 135 mmol/L (135-145) 04/23/25 06:13
Potassium 4.1 mmol/L (3.5-5.1) 04/23/25 06:13
BUN 19 mg/dl (7-17) H 04/23/25 06:13
Creatinine 1.6 mg/dL (0.6-1.0) H 04/23/25 06:13
Glucose 143 mg/dl (70-99) H 04/23/25 06:13
Troponins
04/21/25 04/21/25 04/22/25
11:24 18:10 00:17
Troponin I 0.016 0.013 0.017 D
04/22/25
07:03
Troponin I 0.015
Vital Signs and I&O:
Vital Signs
Temp Pulse Resp BP Pulse Ox
97.9 F 61 16 118/57 97
04/23/25 07:00 04/23/25 07:00 04/23/25 07:00 04/23/25 07:00 04/23/25 07:00
Vital Signs
Temp Pulse Resp BP Pulse Ox
97.9 F 61 16 118/57 97
04/23/25 07:00 04/23/25 07:00 04/23/25 07:00 04/23/25 07:00 04/23/25 07:00
Intake & Output
04/21/25 04/22/25 04/23/25 04/24/25
06:59 06:59 06:59 06:59
Intake Total 720 / 720
Output Total 200 / 200 800 / 800
Balance -200 / -200 -80 / -80
Physical Exam
Physical Exam
General: Well developed, well nourished in NAD.
Neck: Supple, no JVD, HJR, carotids +2 B/L, no bruits bilaterally.
Heart: Non displaced PMI, RRR, no murmurs, No S3, S4, no rubs.
Lungs: Scattered rhonchi
Extremities: No clubbing, cyanosis or edema bilaterally.
Neuro: Grossly nonfocal, awake, alert and oriented x3.
--- NOTE | 2025-04-23 10:57 | W.PN.HOSP.TC ---
Today's Communication/Plan
-
see plan
Assessment / Plan
Assessment / Plan
Gen: NAD, AAOx3.
Eyes: EOMI, PERRLA, no scleral icterus.
Neck: supple.
CV: remains RRR, +S1/S2, no m/r/g.
Resp: CTAB, no rales, wheezes, or rhonchi.
Abd: +BS, soft, NT, ND
Skin: No rashes. No lower extremity edema.
Neuro: CN 2-12 intact, non-focal.
Psych: Normal mood and affect.
CXR:
1. Mild to moderate cardiomegaly.
2. Mild interstitial cardiogenic pulmonary edema.
3. Minimal bilateral pleural effusions.
4. Severe calcific atherosclerotic plaque in the thoracic and abdominal aorta.
5. Left-sided cardiac pacemaker in place.
6. Severe multilevel lumbar discogenic degenerative disease.
L Ribs Xray: Small bilateral pleural effusions. No pneumothorax. Stable mild cardiomegaly. Generalized osseous demineralization. This limits osseous assessment. As far as visualized, no radiographically apparent/displacement left rib fracture. If
there continues to be significant clinical concern, or if it would affect medical management, further evaluation/follow-up chest CT may be considered.
Acute on chronic HFrEF:
-with L rib pain (no fx)
-proBNP 11,000
-cont Bumex to 1mg IV BID
-daily wts, I/Os, FR 1200cc/day
-cont Farxiga/BB/Imdur/Hydralazine
Other problems:
COPD: cont Symbicort
Essential HTN: cont BB/Imdur/Hydralazine
CAD: h/o NSTEMI
PAF: s/p ablation, s/p Watchman, cont Amio/BB
DM2: a1c 8.1%, currently only on SSI. Start Lantus 6U, change diet to ADA 1800kcal/day.
CKD3b
Chronic hyponatremia, mild
GERD: cont PPI
HLD: cont statin
DNR/Heparin
Dispo: Goal for d/c tomorrow, 04/24
Anticipated Discharge: Within 24 hours
Subjective/Interval History
-
Date of Service: April 23, 2025
SOB has improved significantly improved.
Objective Data
-
Labs:
Laboratory Results
04/23/25
06:13
Sodium 135
Potassium 4.1
Chloride 101
Carbon Dioxide 29
BUN 19 H
Creatinine 1.6 H
Glucose 143 H
Calcium 9.0
Vital Signs:
Vital Signs
Temp Pulse Resp BP Pulse Ox
97.9 F 74 16 118/57 94
04/23/25 07:00 04/23/25 07:30 04/23/25 07:30 04/23/25 07:00 04/23/25 07:30
I&O
04/22/25 04/23/25 04/24/25
06:59 06:59 06:59
Intake Total 720 / 720
Output Total 200 / 200 800 / 800
Balance -200 / -200 -80 / -80
[2025-04-23 12:01] LABS: Glucose - Point of Care 179 mg/dl (70-99)
[2025-04-23] MEDS: NOVOLOG FLEXPEN-LOW RESISTANCE 1 UNITS SC (13:05)
[2025-04-23 17:15] LABS: Glucose - Point of Care 255 mg/dl (70-99)
[2025-04-23] MEDS: LIPITOR 40 MG PO (17:52)
[2025-04-23] MEDS: NOVOLOG FLEXPEN-LOW RESISTANCE 3 UNITS SC (17:53)
[2025-04-23] MEDS: REMOVE LIDOCAINE PATCH 1 PATCH REMOVE (20:13)
[2025-04-23 20:55] LABS: Glucose - Point of Care 96 mg/dl (70-99)
[2025-04-23] MEDS: TYLENOL 650 MG PO (21:57)
[2025-04-23] MEDS: XALATAN OPHTHALMIC SOLUTION 1 DROP BOTH EYES (21:58)
[2025-04-23] MEDS: SENOKOT 8.6 MG PO (21:58)
[2025-04-23] MEDS: PROTONIX 40 MG PO (21:58)
[2025-04-24 03:32] VITALS: BP 140/54
[2025-04-24 06:00] VITALS: BMI 20.9
[2025-04-24 07:00] VITALS: BP 141/49
[2025-04-24 07:52] LABS: Glucose - Point of Care 129 mg/dl (70-99)
[2025-04-24] MEDS: IMDUR (EXTENDED RELEASE) 30 MG PO (07:53)
[2025-04-24] MEDS: FARXIGA 10 MG PO (07:53)
[2025-04-24] MEDS: DETROL 2 MG PO (07:53)
[2025-04-24] MEDS: COLACE 100 MG PO (07:53)
[2025-04-24] MEDS: TOPROL XL 50 MG PO (07:53)
[2025-04-24] MEDS: LOW STRENGTH ASPIRIN 81 MG PO (07:53)
[2025-04-24] MEDS: PACERONE 200 MG PO (07:53)
[2025-04-24] MEDS: HEPARIN 5000 UNITS SC (07:54)
[2025-04-24] MEDS: BUMEX 1 MG IV (07:54)
[2025-04-24] MEDS: APRESOLINE 10 MG PO (07:54)
[2025-04-24] MEDS: LANTUS 0.06 UNITS SC (07:55)
[2025-04-24] MEDS: SYMBICORT 160/4.5 MCG INHALER 2 PUFF INH (07:55)
[2025-04-24] MEDS: NOVOLOG FLEXPEN-LOW RESISTANCE SC (07:55)
[2025-04-24] MEDS: LIDOCAINE 4% PATCH 1 PATCH TOPICAL (07:56)
[2025-04-24] MEDS: MIRALAX 17 GRAMS PO (07:58)
[2025-04-24 09:27] LABS: Blood Urea Nitrogen 21 mg/dl (7-17); Calcium 9.0 mg/dl (8.4-10.2); Carbon Dioxide 28 mmol/L (22-30); Chloride 100 mmol/L (98-107); Estimated Creatinine Clearance 18 ml/min; Glucose 102 mg/dl (70-99); Potassium 4.0 mmol/L (3.5-5.1); Sodium 136 mmol/L (135-145); eGFR 30.64
--- NOTE | 2025-04-24 10:35 | W.PN.CARDCBS ---
Addendum entered and electronically signed by Dina Brown DO 04/24/25 20:41:
I saw and examined the patient.
The Insole Toe Snipping Machine Operator's note was reviewed and I agree with the note.
Comment: Patient was seen and examined, anxious to go home to see her grandson Austin who will be coming home briefly from the [place] prior to his next deployment
General: NAD, AAO x 3, RA
Heart: Regular. Positive S1-S2. 2/6 SM
Lungs: Bronchovesicular breath sounds, decreased but clear
Extremities: Trace edema B/L LE
Plan:
Admitted with acute on chronic heart failure with reduced ejection fraction, history of ischemic cardiomyopathy with a OUTBOUND CALL CENTER REPRESENTATIVE of the circumflex on cardiac catheterization December 21, 2024 and a patent LAD stent.
-No symptoms suggestive of angina; continue medical therapy for CAD including aspirin and statin.
- Volume status is improved with diuresis
- Transition to oral Bumex 1 mg p.o. twice daily
- Discussed fluid restriction, weight monitoring, heart failure monitoring
-Outpatient dose of Toprol-XL 50 mg daily has been continued
-Patient is not chronically on ELLIS/ARB/ARNI or aldosterone antagonist due to CKD 4
-Continue hydralazine 10 mg twice daily along with Imdur 30 mg daily.
-Outpatient dose of Farxiga 10 mg daily has been continued
Paroxysmal A-fib with previous PVI in 2011, status post Saint Charbel pacemaker
-Patient is not chronically anticoagulated due to age and patient decision.
- Continue Toprol-XL and amiodarone
Outpatient follow-up with ATC, Dr. Avery
Stable from a cardiovascular standpoint for discharge home
Original Note:
Today's Communication / Plan
-
Stable for discharge to home, cardiology managing the transition from torsemide to bumetanide
Patient will follow-up with her primary shoe shiner, Dr. Avery
Impression / Plan
-
Underground Drill Operator: Dr. Avery
Impression:
Presented shortness of breath, lower extremity edema, chest pain, weight gain
Acute HFrEF
CM, EF 35% by echo 12/19/24
CAD
OUTBOUND CALL CENTER REPRESENTATIVE of circumflex mRCA, widely patent LAD stable by cath and being managed medically 12/21/2024
Paroxysmal atrial fibrillation
s/p PVI 2011 (Dr. Cassidy)
St. Charbel PPM, last generator change 2020 (Dr. Hodges)
Hyperlipidemia
Diabetes mellitus
PVD
CKD 4
Hyponatremia
Cardiac catheterization March 2024: Normal left main, calcified LAD 50% smooth proximal LAD, 70 to 80% stenosis in ostial D1 70% D2 proximal OUTBOUND CALL CENTER REPRESENTATIVE of circumflex: RCA with proximal total occlusion and faint collaterals from conus and more so from
LAD, LVEDP was 25
LHC 12/21/2024: Severe two-vessel coronary artery disease with chronic total occlusion of both the right and left circumflex arteries as described above. The LAD is widely patent and appears angiographically unchanged from prior angiography in
March 2024. Elevated pulmonary pressures with high wedge pressure.
Echo 12/19/2024: EF 30-35%, which is new compared to 2023, mild to moderate MR, aortic sclerosis with mild AI, pulmonary artery systolic pressure is 54 mmHg, pacing wire seen, left atrium mildly dilated
Plan:
-Weight is down to 110 lbs on 04/24/2025. Patient diuresed close to 4 lbs this admission and reports symptomatic improvement in LE edema and SOB.
-Outpatient dose of torsemide was stopped and patient was diuresed with Bumex 1 mg IV BID. Patient agreeable to transition to Bumex 1 mg PO BID upon discharge to home
-EF 30 to 35%, this was seen on previous echo 12/19/2024. Patient then had cardiac catheterization 12/21/2024 that showed OUTBOUND CALL CENTER REPRESENTATIVE of the circumflex and RCA. The LAD was widely patent. Plan was for medical management.
-Outpatient dose of Toprol-XL 50 mg daily has been continued
-Patient is not chronically on ELLIS/ARB/ARNI due to CKD 4, but is maintained on hydralazine 10 mg BID and Imdur ER 30 mg daily, both of which were continued this admission
-Patient is not currently on an aldosterone antagonist due to CKD 4
-Outpatient dose of Farxiga 10 mg daily has been continued
-Patient has known paroxysmal A-fib with previous PVI in 2011. Patient is not chronically anticoagulated due to age and patient decision.
-Outpatient dose of amiodarone 200 mg daily was continued, overall burden of A-fib managed using her Saint Charbel PPM
-Patient stable for discharge to home with VNA and I communicated this to her hospitalist attending. Discharge instructions and diuretic medication changes and E scribing performed by me on day of discharge 04/24/25
Progress Note - Underground Drill Operator
Subjective
Date of Service: April 24, 2025
She feels well and is anxious to go home to see her grandson while he is home only from the [place]
Objective
Labs:
04/22/25 07:03
04/24/25 07:00
Labs
Hgb 8.8 g/dL (12.0-16.0) L 04/22/25 07:03
Hct 27.3 % (37.0-47.0) L 04/22/25 07:03
Plt Count 250 10^3/uL (130-400) 04/22/25 07:03
PT 15.2 Sec (11.4-14.6) H 04/21/25 11:24
INR 1.18 04/21/25 11:24
Sodium 136 mmol/L (135-145) 04/24/25 07:00
Potassium 4.0 mmol/L (3.5-5.1) 04/24/25 07:00
BUN 21 mg/dl (7-17) H 04/24/25 07:00
Creatinine 1.6 mg/dL (0.6-1.0) H 04/24/25 07:00
Glucose 102 mg/dl (70-99) H 04/24/25 07:00
Troponins
04/21/25 04/21/25 04/22/25
11:24 18:10 00:17
Troponin I 0.016 0.013 0.017 D
04/22/25
07:03
Troponin I 0.015
Vital Signs and I&O:
Vital Signs
Temp Pulse Resp BP Pulse Ox
98.0 F 60 16 141/49 96
04/24/25 07:00 04/24/25 07:00 04/24/25 07:58 04/24/25 07:00 04/24/25 07:58
Vital Signs
Temp Pulse Resp BP Pulse Ox
98.0 F 60 16 141/49 96
04/24/25 07:00 04/24/25 07:00 04/24/25 07:58 04/24/25 07:00 04/24/25 07:58
Intake & Output
04/22/25 04/23/25 04/24/25 04/25/25
06:59 06:59 06:59 06:59
Intake Total 720 / 720 1080 / 1080
Output Total 200 / 200 800 / 800
Balance -200 / -200 -80 / -80 1080 / 1080
Physical Exam
Physical Exam
General: NAD, AAO x 3
Heart: SR on telemetry. No murmur
Lungs: RA. No audible wheeze
Extremities: Trace edema B/L LE
[2025-04-24 11:00] VITALS: BP 130/47
[2025-04-24 12:20] LABS: Glucose - Point of Care 230 mg/dl (70-99)
[2025-04-24 12:27] LABS: Iron 37 ug/dl (37-170)
[2025-04-24 12:36] LABS: Total Iron Binding Capacity 298 ug/dl (265-497)
[2025-04-24] MEDS: NOVOLOG FLEXPEN-LOW RESISTANCE 2 UNITS SC (12:41)
[2025-04-24 14:51] LABS: Ferritin 19.5 ng/ml (11.1-264.0)
[2025-04-24 15:00] VITALS: BP 124/50
[2025-04-24 15:05] LABS: Vitamin B12 336 pg/ml (239-931)
--- NOTE | 2025-04-24 15:12 | W.PN.HOSP.TC ---
Addendum entered and electronically signed by Derrell Navas MD 04/24/25 15:25:
Discussed with granddaughter and updated
Addendum entered and electronically signed by Derrell Navas MD 04/24/25 15:20:
Correction- No watchman dvice
Original Note:
Today's Communication/Plan
-
Discharge
Assessment / Plan
Assessment / Plan
89-year-old female with chest pain she was seen by community health worker Dr. Avery torsemide was recently increased she also noticed bilateral lower extremity swelling and increased weight
Chest x-ray-mild to moderate cardiomegaly. Mild interstitial pulmonary edema. Minimal bilateral pleural effusions. Severe calcific atherosclerotic plaque in the thoracic and abdominal aorta. Left-sided cardiac pacemaker. Severe multilevel
lumbar DDD
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 LAD widely patent and unchanged since March 2024. Elevated pulmonary pressures with high wedge pressure.
# Acute on chronic HFrEF
Left rib pain-no fracture
proBNP 11,000
Bumex changed to p.o.
Daily intake output charting, daily weights, CHF education
Fluid restriction and salt restriction
Continue G MDT-Farxiga, beta-blockers, Imdur, hydralazine
Weight went from 52 kg to 50 kg
# COPD-continue Symbicort or equivalent and as needed albuterol
# Hypokalemia corrected
# Anemia-replace B12 and iron for mild deficiency
# Hypertension-continue beta-blockers and hydralazine
# Coronary disease with history of iuf-FIBIK-dupp as above 12/21/2024-continue aspirin, statin, beta-adalberto
# Paroxysmal atrial fibrillation with history of ablation and Watchman device-continue beta-blockers and amiodarone. No anticoagulation
# History of PPM 2002 with generator change 2010
# Diabetes-hemoglobin A1c 8.1
On Trulicity as outpatient 0.75 mg on Mondays
Currently on Lantus, sliding scale coverage with Accu-Cheks
Patient to go home and start Trulicity today
# CKD stage III
# Chronic hyponatremia
# Hyperlipidemia/atherosclerotic plaques thoracic and abdominal aorta-continue statin
# Severe multilevel lumbar DDD
# GERD-continue PPI
# History of vertigo
# Ex-smoker
# DVT prophylaxis-subcutaneous heparin
# DNR status
Discussed with cardiology. Okay for discharge
More than 30 minutes spent in discharge including
Final examination of the patient
Summarizing hospital stay
Instructions for continuing care to all relevant caregivers
Preparation of discharge records, prescriptions, and referral forms
Part of this note was created using voice recognition system. Occasional wrong word or��sound alike� substitutions may have inadvertently occurred due to the inherent limitations of voice recognition software. If noted kindly bring it to my
attention for correction.
Anticipated Discharge: Today
Subjective/Interval History
-
Date of Service: April 24, 2025
Objective Data
-
Labs:
Laboratory Results
04/24/25
07:00
Sodium 136
Potassium 4.0
Chloride 100
Carbon Dioxide 28
BUN 21 H
Creatinine 1.6 H
Glucose 102 H
Calcium 9.0
Vital Signs:
Vital Signs
Temp Pulse Resp BP Pulse Ox
97.5 F 62 18 130/47 100
04/24/25 11:00 04/24/25 11:00 04/24/25 11:00 04/24/25 11:00 04/24/25 11:00
I&O
04/23/25 04/24/25 04/25/25
06:59 06:59 06:59
Intake Total 720 / 720 1080 / 1080
Output Total 800 / 800
Balance -80 / -80 1080 / 1080
--- NOTE | 2025-04-24 15:20 | W.DS.TRANS ---
Addendum entered and electronically signed by Derrell Navas MD 04/24/25 16:02:
Dictation- [id number]
Original Note:
DC Summary - Router Operator Pin
-
Discharge Instructions:
Sleep Apnea Risk Low
Discharge Diagnosis/Procedures Acute heart failure with reduced ejection
fraction, ischemic cardiomyopathy ejection
fraction 35%
COPD
Anemia
Hypertension
Coronary artery disease
Atrial fibrillation
Diabetes
Pacemaker
Chronic kidney disease
Hyponatremia
High cholesterol
Atherosclerosis
Multilevel lumbar degenerative disc disease
GERD
Diet 2 Gram Sodium,Restrict fluids to 48 oz
Activity As tolerated
Driving Restrictions As prior to admission
Bathing Restrictions None
Other Services VN
Specialty Instructions Weigh Daily
Instructions:
Stand-Alone Forms:
Changes to Home Medications: Yes
Discharge Medications:
DC Medications w/original date entered in [employer]
aspirin 81 mg chewable tablet (Rayo Chewable Low Dose Aspirin) 81 mg PO DAILY Blood Clot Prevention/Tx 02/13/21
atorvastatin 40 mg tablet 40 mg PO QPM High Cholesterol 02/13/21
tolterodine 2 mg tablet 2 mg PO BID Urinary Issue 02/13/21
amiodarone 200 mg tablet 200 mg PO DAILY Arrhythmia 12/18/24
latanoprost 0.005 % eye drops 1 drp BOTH EYES HS Eye Condition 12/18/24
metoprolol succinate 50 mg tablet,extended release 24 hr 50 mg PO DAILY Blood Pressure 12/18/24
albuterol sulfate 90 mcg/actuation aerosol inhaler 1 inh inhalation R Q6HPRN PRN sob 01/15/25
budesonide-formoterol HFA 160 mcg-4.5 mcg/actuation aerosol inhaler (Breyna) 2 puff inhalation R BID Lung/breathing issues #0 grams 04/24/25
bumetanide 1 mg tablet 1 mg PO BID Heart Failure #60 tabs 04/24/25
cyanocobalamin (vitamin B-12) 500 mcg tablet 1,000 mcg (2 x 500 mcg) PO DAILY low normal #0 tabs 04/24/25
dapagliflozin propanediol 10 mg tablet 10 mg PO DAILY Heart disease/condition #30 tabs 04/24/25
docusate sodium 100 mg capsule 100 mg PO BID Constipation #0 caps 04/24/25
dulaglutide 0.75 mg/0.5 mL subcutaneous pen injector (Trulicity) 0.75 mg (0.5 mL) SC MO Diabetes #0 mL 04/24/25
ferrous sulfate 325 mg (65 mg iron) tablet (FeroSul) 325 mg PO DAILY anemia #0 tabs 04/24/25
hydralazine 10 mg tablet 10 mg PO BID Heart disease/condition #60 tabs 04/24/25
isosorbide mononitrate 30 mg tablet,extended release 24 hr 30 mg PO DAILY Heart Failure #30 tabs 04/24/25
pantoprazole 40 mg tablet,delayed release (Protonix) 40 mg PO HS Gastrointestinal issue #0 tabs 04/24/25
polyethylene glycol 3350 17 gram oral powder packet 17 g PO DAILY Constipation #0 ea 04/24/25
Home Medication Changes
Torsemide changed to Bumex
MiraLAX, iron, cyanocobalamin are new
Pending Results: No
--- NOTE | 2025-04-24 15:36 | CM ---
Chart reviewed. Patient will discharge home today
Met w/ patient bedside, aware of discharge. IMM verbally reviewed, copy provided, copy on chart
Granddaughter will transport home
No CM needs at this time
Plan: Home, no needs
--- NOTE | 2025-04-24 15:46 | W.HF.CON ---
Heart Failure
- LV Function
Left ventricular function study result: LV Ejection fraction </= 35%
Ejection Fraction Percentage: 30-35
- ARNI
Patient already on ARNI: No
Heart Failure ARNI Contraindication: Worsening Renal Function
- ACEI/ARB
Patient already on ACEI/ARB: No
Heart Failure ACEI/ARB Contraindication: Worsening Renal Function
- Beta Donnell
Patient already on Evidence Based Beta Donnell: Yes
- Mineralocorticord Receptor Antagonist
Patient already on MRA: No
Heart Failure MRA Contraindication: Acute Renal Insufficiency
- SGLT-2 Inhibitor
Patient already on SGLT-2 Inhibitor: Yes
- Hydralazine & Isosorbide Dinitrate
Patient already on Hydralazine & Isosorbide Dinitrate: Yes
- NYHA CHF Classification
NYHA CHF Classification Level: Class III - Symptoms w/ min exertion, interferes w/ nml daily activity
- ACC/AHA Stage
ACC/AHA Stage: Stage C: Symptomatic Heart Failure
== END 2025-04-24 18:25 | disposition home or self-care (01) | DRG 291 ==
LOC: 4 WEST ACU 16:18
PROVIDERS: Emergency Medicine; Internal Medicine; Student in an Organized Health Care Education/Training Program; ADMITTING PHYSICIAN Hospitalist; ATTENDING PHYSICIAN Hospitalist; CONSULT PHYSICIAN Internal Medicine Cardiovascular Disease; EMERGENCY PHYSICIAN Emergency Medicine; FAMILY PHYSICIAN Family Medicine
DX: I13.0 Hypertensive heart and chronic kidney disease with heart failure and stage 1 through stage 4 chronic kidney disease, or unspecified chronic kidney disease (principal); I50.23 Acute on chronic systolic (congestive) heart failure; E87.1 Hypo-osmolality and hyponatremia; N18.4 Chronic kidney disease, stage 4 (severe); I25.5 Ischemic cardiomyopathy; J44.9 Chronic obstructive pulmonary disease, unspecified; D64.9 Anemia, unspecified; I25.10 Atherosclerotic heart disease of native coronary artery without angina pectoris; I48.0 Paroxysmal atrial fibrillation; E11.22 Type 2 diabetes mellitus with diabetic chronic kidney disease; E11.51 Type 2 diabetes mellitus with diabetic peripheral angiopathy without gangrene; E78.00 Pure hypercholesterolemia, unspecified; M51.369 Other intervertebral disc degeneration, lumbar region without mention of lumbar back pain or lower extremity pain; K21.9 Gastro-esophageal reflux disease without esophagitis; Z95.0 Presence of cardiac pacemaker; Z96.641 Presence of right artificial hip joint; Z90.711 Acquired absence of uterus with remaining cervical stump; Z87.891 Personal history of nicotine dependence; Z88.8 Allergy status to other drugs, medicaments and biological substances; Z88.2 Allergy status to sulfonamides; Z88.1 Allergy status to other antibiotic agents; I25.2 Old myocardial infarction; Z66 Do not resuscitate; M81.0 Age-related osteoporosis without current pathological fracture; Z79.82 Long term (current) use of aspirin; Z79.899 Other long term (current) drug therapy; Z82.49 Family history of ischemic heart disease and other diseases of the circulatory system; I49.5 Sick sinus syndrome
CPT/HCPCS: 71046; 71100; 80048; 80053; 82607; 82728; 82962; 83036; 83540; 83550; 83735; 83880; 84484; 85025; 85027; 85610; 93005; 94640; 96374; 99285